=== PATIENT | female | born 1970 | race Caucasian/White ===

== ENCOUNTER 2019-11-22 07:32 | Inpatient (IN) | payer OTHER ==
[2019-11-22] MEDS ORDERED: ACETAMINOPHEN 1000 MG/100 ML VIAL (NON FORMULARY) IVPB ONE (07:42)
[2019-11-22] MEDS ORDERED: SODIUM CHLORIDE 0.9% 500 ML INFUS.BAG IV ONE (07:42)
--- OUTSIDE RECORDS SUMMARY | 2019-11-22 07:49 | XMS ---
:1970 Author Organization [facility] Support Name Relationship Address Phone UE Unavailable Unavailable Unavailable SHAAN MASON FRIEND [address] [phone] [place] [address] Re-disclosure Warning The records that you are about to access may contain information from federally- assisted alcohol or drug abuse programs. If such information is present, then the following federally mandated warning applies: This information has been disclosed to you from records protected by federal confidentiality rules (42 CFR part 2). The federal rules prohibit you from making any further disclosure of this information unless further disclosure is expressly permitted by the written consent of the person to whom it pertains or as otherwise permitted by 42 CFR part 2. A general authorization for the release of medical or other information is NOT sufficient for this purpose. The Federal rules restrict any use of the information to criminally investigate or prosecute any alcohol or drug abuse patient.The records that you are about to access may contain highly sensitive health information, the redisclosure of which is protected by Article 27-F of the [facility] Public Health law. If you continue you may haveaccess to information: Regarding HIV / AIDS; Provided by facilities licensed or operated by the [facility] Office of Mental Health; or Provided by the [facility] Office for People With Developmental Disabilities. If such information is present, then the following [facility] mandated warning applies: This information has been disclosed to you from confidential records which are protected by state law. State law prohibits you from making any further disclosure of this information without the specific written consent of the person to whom it pertains, or as otherwise permitted by law. Any unauthorized further disclosure in violation of state law may result in a fine or senior care sentence or both. A general authorization for the release of medical or other information is NOT sufficient authorization for further disclosure. Insurance Providers Payer name Policy type Policy ID Covered Covered republican's Policy P chrystal / Coverage republican ID relationship to Rojas Inf ormation type rojas AFFINITY [id number] SP [id number] Results ID Date Data Source [id number] 08/29/2019 12:00:00 AM EDT [place] Name Value Range Interpretation Description Data Sup porting Code Source(s) Document(s ) SARS [place] coronavirus 2 RNA A This lab was ordered by [facility], [facility] and reported by [employer] Procedure
--- NOTE | 2019-11-22 07:50 | PDOC ---
Attending Attestation - Resident Resident Name: RamosDima - ED Attending Attestation I have performed the following: I have examined & evaluated the patient, The case was reviewed & discussed with the resident, I agree w/resident's findings & plan, Exceptions are as noted - HPI HPI: 49 yo F history depression presents with 4 day history of abd pain. She states that she has been unable to have a bowel movement for 4 days, strained while she attempted today, subsequently noted that she passed blood from her rectum, which "filled the bowl". Denies N/V, f/c, back pain, recent illness. No prior similar symptoms. Has recently been treated for UTI with bactrim. - Physicial Exam PE: GENERAL: Awake, alert, and fully oriented, in no acute distress HEAD: No signs of trauma EYES: PERRLA, EOMI, sclera anicteric, conjunctiva clear ENT: Auricles normal inspection, hearing grossly normal, nares patent, oropharynx clear without exudates. Moist mucosa NECK: Normal ROM, supple, no lymphadenopathy, JVD, or masses LUNGS: Breath sounds equal, clear to auscultation bilaterally. No wheezes, and no crackles HEART: Regular rate and rhythm, normal S1 and S2, no murmurs, rubs or gallops ABDOMEN: Soft, nontender, hypoactive bowel sounds. No guarding, no rebound. No masses EXTREMITIES: Normal range of motion, no edema. No clubbing or cyanosis. No cords, erythema, or tenderness NEUROLOGICAL: Cranial nerves II through XII grossly intact. Normal speech, normal gait. Motor and sensation intact SKIN: Warm, dry, normal turgor, no rashes or lesions noted. - Medical Decision Making Pt with constipation associated with rectal bleeding this AM. Will obtain labs, check rectal exam. No signs of acute abdomen on exam. CT a/p obtained, found to have portal vein thrombosis, will plan for admission. Discharge - Discharge Information Problems reviewed: Yes Clinical Impression/Diagnosis: Portal vein thrombosis - Follow up/Referral - Patient Discharge Instructions - Post Discharge Activity
[2019-11-22] MEDS ORDERED: ACETAMINOPHEN INJECTION 100 ML IVPB ONE ×2 (07:55→21:03)
[2019-11-22] MEDS ORDERED: FAMOTIDINE 20 MG/50 ML IVPB 20 MG/50 ML MG IVPB ONE ×3 (07:57→15:29)
[2019-11-22] MEDS ORDERED: LIDOCAINE VISCOUS 2% ORAL/TOP 20 ML UNIT-DOSE CUP MM ONE ×2 (07:57→16:11)
[2019-11-22] MEDS ORDERED: MAG HYDROX/AL HYDROX/SIMETH -MYLANTA- ORAL SUSPENSION PO ONE ×2 (07:57→15:29)
--- NOTE | 2019-11-22 07:57 | PDOC ---
History of Present Illness - General Stated Complaint: GI BLEEDING Time Seen by Provider: 11/22/19 07:41 - History of Present Illness Initial Comments: Sahci King is a 49 y/o female with PMH significant for depression (on welbutrin) presenting today with abdominal pain for the past four days. Reports that the pain is epigastric and left flank without any radiation. Intermittent pain, unable to identify what brings it on or makes it worse. Describes the pain as burning in sensation. No fever/chills. No nausea/vomiting. Reports constipation with blood stool this morning. No dysuria. Treated for a UTI last week with bactrim x3 days. Currently finishing her menstrual cycle. PMH: SurgHx: liposuction SocHx: social ETOH use twice weekly, denies smoking/drugs Past History - Medical History Allergies/Adverse Reactions: Allergies Allergy/AdvReac Type Severity Reaction Status Date / Time ibuprofen Allergy Verified 11/22/19 07:57 Home Medications: Ambulatory Orders Bupropion HCl [Wellbutrin Sr] 150 mg PO DAILY 11/22/19 Clonazepam [Klonopin] 2 mg PO DAILY 11/22/19 - Psycho-Social/Smoking History Smoking Status: No Smoking History: Never smoked Number of Cigarettes Smoked Daily: 0 Review of Systems - Review of Systems Comments:: GENERAL/CONSTITUTIONAL: No fever or chills. No weakness._ HEAD, EYES, EARS, NOSE AND THROAT: No change in vision. No change in hearing. No sore throat._ CARDIOVASCULAR: No chest pain or shortness of breath_ RESPIRATORY: Denies cough, hemoptysis_ GASTROINTESTINAL: No nausea, vomiting, diarrhea. +abdominal pain. +constipation. GENITOURINARY: No dysuria, frequency, or change in urination._ MUSCULOSKELETAL: No joint or muscle swelling or pain. No neck or back pain._ SKIN: No rash_ NEUROLOGIC: No headache, vertigo, loss of consciousness, or change in strength/sensation._ ENDOCRINE: No increased thirst. No abnormal weight change_ HEMATOLOGIC/LYMPHATIC: No anemia, easy bleeding, or history of blood clots._ ALLERGIC/IMMUNOLOGIC: No hives or skin allergy._ *Physical Exam - Physical Exam GENERAL: Awake, alert, and oriented to person/place/time, in no acute distress_ HEAD: No signs of trauma, normocephalic, atraumatic _ EYES: PERRLA, EOMI, sclera anicteric, conjunctiva clear_ ENT: Hearing grossly normal, nares patent, oropharynx clear without exudates. No uvular deviation. Moist mucosa_ NECK: Normal ROM, supple, no lymphadenopathy, JVD, or masses_ LUNGS: No distress, speaks in full sentences, clear to auscultation bilaterally _ HEART: Regular rate and rhythm, normal S1 and S2, no murmurs appreciated, peripheral pulses normal and equal bilaterally._ ABDOMEN: Soft, minimal epigastric TTP. No guarding, no rebound. No masses. BACK: Mild right sided flank pain. RECTAL: Normal external exam. No active bleeding. Empty rectal vault. Normal rectal tone. EXTREMITIES: Normal inspection, Normal range of motion, no edema. No clubbing or cyanosis_ NEUROLOGICAL: Cranial nerves II through XII grossly intact. Normal speech, normal gait, no focal sensorimotor deficits _ SKIN: Warm, Dry, normal turgor, no rashes or lesions noted_ ED Treatment Course - LABORATORY CBC & Chemistry Diagram: 11/23/19 05:39 11/23/19 05:39 - RADIOLOGY Radiology Studies Ordered: Category Date Time Status CHEST X-RAY PORTABLE* [RAD] Stat Radiology 11/22/19 07:42 Ordered Medical Decision Making - Medical Decision Making 11/22/19 08:04 49F hx of depression presenting with mild epigastric abdominal pain for the past 4 days. Abd minimally tender, no signs of acute or peritoneal abdomen. No signs of systemic infection. DDx includes UTI vs pyelo vs pancreatitis vs gastritis. -cbc, cmp -ekg, trop, cxr -stool occult blood -ua, ucx -coags -type and screen 11/22/19 08:12 EKG shows 76 bpm, NSR, no axis deviation, LA 168, QRS 78, QTc 432, no ST elevation/depression. No prior for comparison. 11/22/19 09:01 CXR negative for acute intrathoracic pathology. 11/22/19 09:51 Labs reviewed. Laboratory Last Values WBC 8.7 K/mm3 (4.0-10.0) 11/22/19 07:48 RBC 4.19 M/mm3 (3.60-5.2) 11/22/19 07:48 Hgb 8.0 GM/dL (10.7-15.3) L 11/22/19 07:48 Hct 26.3 % (32.4-45.2) L 11/22/19 07:48 MCV 62.6 fl (80-96) L 11/22/19 07:48 MCH 19.1 pg (25.7-33.7) L 11/22/19 07:48 MCHC 30.5 g/dl (32.0-36.0) L 11/22/19 07:48 RDW 23.0 % (11.6-15.6) H 11/22/19 07:48 Plt Count 327 K/MM3 (134-434) 11/22/19 07:48 MPV 8.8 fl (7.5-11.1) 11/22/19 07:48 Absolute Neuts (auto) 5.8 K/mm3 (1.5-8.0) 11/22/19 07:48 Neutrophils % 67.0 % (42.8-82.8) 11/22/19 07:48 Lymphocytes % 22.9 % (8-40) 11/22/19 07:48 Monocytes % 8.5 % (3.8-10.2) 11/22/19 07:48 Eosinophils % 0.7 % (0-4.5) 11/22/19 07:48 Basophils % 0.9 % (0-2.0) 11/22/19 07:48 Nucleated RBC % 0 % (0-0) 11/22/19 07:48 Sodium 137 mmol/L (136-145) 11/22/19 07:48 Potassium 3.7 mmol/L (3.5-5.1) 11/22/19 07:48 Chloride 105 mmol/L (98-107) 11/22/19 07:48 Carbon Dioxide 25 mmol/L (21-32) 11/22/19 07:48 Anion Gap 7 MMOL/L (8-16) L 11/22/19 07:48 BUN 6.2 mg/dL (7-18) L 11/22/19 07:48 Creatinine 0.8 mg/dL (0.55-1.3) 11/22/19 07:48 Est GFR (CKD-EPI)AfAm 101.04 11/22/19 07:48 Est GFR (CKD-EPI)NonAf 87.18 11/22/19 07:48 Random Glucose 94 mg/dL (74-106) 11/22/19 07:48 Calcium 7.9 mg/dL (8.5-10.1) L 11/22/19 07:48 Total Bilirubin 0.4 mg/dL (0.2-1) 11/22/19 07:48 AST 19 U/L (15-37) 11/22/19 07:48 ALT 33 U/L (13-61) 11/22/19 07:48 Alkaline Phosphatase 69 U/L (45-117) 11/22/19 07:48 Creatine Kinase 43 U/L (26-192) 11/22/19 07:48 Troponin I < 0.02 ng/ml (0.00-0.05) 11/22/19 07:48 Total Protein 7.2 g/dl (6.4-8.2) 11/22/19 07:48 Albumin 3.0 g/dl (3.4-5.0) L 11/22/19 07:48 Lipase 73 U/L (73-393) 11/22/19 07:48 Serum , Qual Negative 11/22/19 07:48 Stool Occult Blood Negative (NEGATIVE) 11/22/19 08:15 11/22/19 14:43 CT abd shows extensive portal vein thrombosis involving the main portal vein and right and left branches. Large uterine fibroid. No evidence of diverticulitis or acute pathology. 11/22/19 15:12 D/w Dr. Frey, GI. Recommends heme consult as the pt may have a hypercoagulable state and no cirrhosis. 11/22/19 15:36 UA reviewed. Urine Test Results Urine Color Yellow 11/22/19 15:23 Urine Appearance Clear 11/22/19 15:23 Urine pH 7.5 (5.0-8.0) D 11/22/19 15:23 Ur Specific [place] 1.030 (1.010-1.035) 11/22/19 15:23 Urine Protein Negative (NEGATIVE) 11/22/19 15:23 Urine Glucose (UA) Negative (NEGATIVE) 11/22/19 15:23 Urine Ketones Negative (NEGATIVE) 11/22/19 15:23 Urine Blood 1+ (NEGATIVE) H 11/22/19 15:23 Urine Nitrite Negative (NEGATIVE) 11/22/19 15:23 Urine Bilirubin Negative (NEGATIVE) 11/22/19 15:23 Ur Leukocyte Esterase Negative (NEGATIVE) 11/22/19 15:23 11/22/19 17:27 Case d/w Dr. Stinson. Requests factor V leiden, protein C, protein S, antithrombin III, thrombin [id number], prothrombin, VCR-abl, JAK2. R/o myeloproliferative neoplasms. Will evaluate the patient. 11/22/19 17:38 Case d/w Dr. Argueta who accepts the patient for admission. Discharge - Discharge Information Problems reviewed: Yes Clinical Impression/Diagnosis: Portal vein thrombosis Condition: Stable - Admission Yes - Follow up/Referral - Patient Discharge Instructions - Post Discharge Activity
[2019-11-22 08:05] LABS: BASO % 0.9 % (0-2.0); EOS % 0.7 % (0-4.5); HEMATOCRIT 26.3 % (32.4-45.2); LYMPH % 22.9 % (8-40); MCHC 30.5 g/dl (32.0-36.0); MEAN CELL VOLUME 62.6 fl (80-96); MEAN PLT VOLUME 8.8 fl (7.5-11.1); MONO % 8.5 % (3.8-10.2); PLATELET COUNT 327 K/MM3 (134-434); RBC 4.19 M/mm3 (3.60-5.2); WHITE BLOOD COUNT 8.7 K/mm3 (4.0-10.0)
[2019-11-22] MEDS ORDERED: MAG HYDROX/AL HYDROX/SIMETH 30 ML UNIT-DOSE CUP ONE ×2 (08:16→16:12)
[2019-11-22] MEDS ORDERED: LIDOCAINE VISCOUS 2% ORAL/TOP 20 ML UNIT-DOSE CUP ONE (08:16)
[2019-11-22 08:22] LABS: MCH 19.1 pg (25.7-33.7)
[2019-11-22 08:36] LABS: ALK PHOS 69 U/L (45-117); ANION GAP 7 MMOL/L (8-16); BILIRUBIN,TOTAL 0.4 mg/dL (0.2-1); BLOOD UREA NITROGEN 6.2 mg/dL (7-18); CALCIUM 7.9 mg/dL (8.5-10.1); CHLORIDE 105 mmol/L (98-107); CO2 25 mmol/L (21-32); CREATININE 0.8 mg/dL (0.55-1.3); GLUCOSE,RANDOM 94 mg/dL (74-106); LIPASE 73 U/L (73-393); POTASSIUM 3.7 mmol/L (3.5-5.1); SGOT/AST 19 U/L (15-37); SGPT/ALT 33 U/L (13-61); SODIUM 137 mmol/L (136-145); TOT PROT 7.2 g/dl (6.4-8.2)
--- NOTE | 2019-11-22 08:53 | EKG ---
Test Reason : Blood Pressure : / mmHG Vent. Rate : 076 BPM Atrial Rate : 076 BPM P-R Int : 168 ms QRS Dur : 078 ms QT Int : 384 ms P-R-T Axes : 019 010 027 degrees QTc Int : 432 ms NORMAL SINUS RHYTHM LOW VOLTAGE QRS BORDERLINE ECG NO PREVIOUS ECGS AVAILABLE Confirmed by Kellen Jung ([id number]) on 11/22/2019 8:52:41 AM Referred By: Confirmed By:Kellen Jung
[2019-11-22 11:19] LABS: ANISOCYTOSIS 2+; MACROCYTOSIS 0; PLATELET ESTIMATE NORMAL
[2019-11-22 15:30] LABS: EPI CELLS 11 /uL (0-25.1); HYALINE CASTS 0 /uL (0-3.1); PH,URINE 7.5 (5.0-8.0); URINE APPEARANCE CLEAR; URINE BACTERIA 112 /uL (0-1359); URINE BILIRUBIN NEGATIVE (NEGATIVE); URINE COLOR YELLOW; URINE GLUCOSE (UA) NEGATIVE (NEGATIVE); URINE KETONE NEGATIVE (NEGATIVE); URINE LEUK ESTERASE NEGATIVE (NEGATIVE); URINE NITRITE NEGATIVE (NEGATIVE); URINE PROTEIN NEGATIVE (NEGATIVE); URINE RBC 9 /uL (0-23.9); URINE UROBILINOGEN 0.2 mg/dL (0.2-1.0); URINE WBC 20 /uL (0-25.8)
--- OUTSIDE RECORDS SUMMARY | 2019-11-22 17:57 | XMS ---
:1970 Author Organization [facility] Support Name Relationship Address Phone UE, UNEMPLOYED Unavailable Unavailable Unavailable UE Unavailable Unavailable Unavailable SHAAN MASON FRIEND [address] [place] [address] Re-disclosure Warning The records that you are [...] by Article 27-F of the [facility] law. If you continue you may haveaccess to information: Regarding HIV / AIDS; Provided by facilities licensed or operated by the [facility] Office of Mental Health; or Provided by the [facility] Office for People With Developmental Disabilities. If such information is present, then the following [facility] mandated warning applies: This information has been [...] law may result in a fine or prison sentence or both. A general authorization for the release of medical or other information is NOT sufficient authorization for further disclosure. Insurance Providers Payer name Policy type Policy ID Covered Covered democrat's Policy P chrystal / Coverage democrat ID relationship to Rojas Inf ormation type rojas AFFINITY [id number] SP [id number] 100 Results ID Date Data Source [id number] 08/29/2019 12:00:00 AM EDT [place] Name Value Range Interpretation Description Data Sup porting Code Source(s) Document(s ) SARS [facility] coronavirus 2 RNA A This lab was ordered by [facility] and reported by [employer] Procedure
[2019-11-22] MEDS ORDERED: MORPHINE SULFATE 2 MG/ML VIAL IVPUSH ONE (18:13)
--- NOTE | 2019-11-22 18:14 | HP ---
CHIEF COMPLAINT: ABD Pain PCP: Dr. Toscano HISTORY OF PRESENT ILLNESS: 49yo F with h/o Depression presenting today with abdominal pain for 4 days described as constant 6/10 pain diffusely. Patient reports the pain occurred suddenly when it was initiated and accompanied with L flank pain. Patient states she believed her pain was from gas and constipation so she took stool softeners and increased her free water intake with no effect. She came today because of the continued pain causing her to lose sleep for further investigation. Patient reports some nause, however no vomiting has occurred. In ED on imaging patient found to have portal vein thrombus, large uterine fibroid, and per my read distended bladder. Hematology was consulted in ED. Pt reports no prior clotting or bleeding events. Denies fever/chills, vomiting, lightheadedness/dizziness, cough, hemoptysis, SOB, CP/palpitations, dysuria, polyuria, hematuria. Pt reports generalized fatigue Pt also endorses that today she had one BM with hard stool with notable blood in the toilet after her BM. This has only occurred once and she has never had any prior events to this day. Pt's LMP today (finishing). PMH: As above SurgHx: Liposuction SocHx: social ETOH use twice weekly, denies smoking/drugs Family: No bleeding or clotting disorders, cardiac disease (both parents; estranged from mother) and dementia Allergies ibuprofen Allergy (Verified 11/22/19 07:57) HOME MEDICATIONS: Home Medications Medication Instructions Recorded Bupropion HCl [Wellbutrin Sr] 150 mg PO DAILY 11/22/19 Clonazepam [Klonopin] 2 mg PO DAILY 11/22/19 REVIEW OF SYSTEMS As above PHYSICAL EXAMINATION Vital Signs - 24 hr 11/22/19 11/22/19 11/22/19 07:35 15:26 17:03 Temperature 98.3 F 98.1 F 99.1 F Pulse Rate 81 Pulse Rate [ 76 Left] Pulse Rate [ 79 Right Apical] Respiratory 16 15 14 Rate Blood Pressure 108/72 Blood Pressure 111/77 [Arm] Blood Pressure 112/48 L [Left Arm] O2 Sat by Pulse 98 100 100 Oximetry (%) GENERAL: Awake, alert, and fully oriented, in no acute distress. HEENT: NC/aT, EOMI, MARICRUZ, slightly pale conjunctiva, MMM LUNGS: CTA bilaterally. No wheezes, and no crackles. No accessory muscle use. HEART: RRR, normal S1 and S2 without murmur ABDOMEN: Soft, nondistended, NT, hypoactive bowel sounds, no guarding, no rebound. No hepatomegaly EXTREMITIES: 2+ pulses, warm, well-perfused. No calf tenderness. No peripheral edema. PSYCHIATRIC: Cooperative. Good eye contact. Appropriate mood and affect. SKIN: Warm, dry, no rashes or lesions noted, normal capillary refill. Tattoo on back Laboratory Results - last 24 hr 11/22/19 11/22/19 11/22/19 07:48 07:48 07:48 WBC 8.7 RBC 4.19 Hgb 8.0 L Hct 26.3 L MCV 62.6 L MCH 19.1 L MCHC 30.5 L RDW 23.0 H Plt Count 327 MPV 8.8 Absolute Neuts (auto) 5.8 Neutrophils % 67.0 Lymphocytes % 22.9 Monocytes % 8.5 Eosinophils % 0.7 Basophils % 0.9 Nucleated RBC % 0 Hypochromia 1+ Platelet Estimate Normal Polychromasia 0 Poikilocytosis 1+ Anisocytosis 2+ Microcytosis 2+ Macrocytosis 0 Sodium 137 Potassium 3.7 Chloride 105 Carbon Dioxide 25 Anion Gap 7 L BUN 6.2 L Creatinine 0.8 Est GFR (CKD-EPI)AfAm 101.04 Est GFR (CKD-EPI)NonAf 87.18 Random Glucose 94 Calcium 7.9 L Total Bilirubin 0.4 AST 19 ALT 33 Alkaline Phosphatase 69 Creatine Kinase 43 Troponin I < 0.02 Total Protein 7.2 Albumin 3.0 L Lipase 73 Serum , Qual Negative Urine Color Urine Appearance Urine pH Ur Specific [place] Urine Protein Urine Glucose (UA) Urine Ketones Urine Blood Urine Nitrite Urine Bilirubin Urine Urobilinogen Ur Leukocyte Esterase Urine WBC (Auto) Urine RBC (Auto) Urine Casts (Auto) U Epithel Cells (Auto) Urine Bacteria (Auto) Stool Occult Blood Blood Type Antibody Screen Crossmatch 11/22/19 11/22/19 11/22/19 07:48 08:15 08:15 WBC RBC Hgb Hct MCV MCH MCHC RDW Plt Count MPV Absolute Neuts (auto) Neutrophils % Lymphocytes % Monocytes % Eosinophils % Basophils % Nucleated RBC % Hypochromia Platelet Estimate Polychromasia Poikilocytosis Anisocytosis Microcytosis Macrocytosis Sodium Potassium Chloride Carbon Dioxide Anion Gap BUN Creatinine Est GFR (CKD-EPI)AfAm Est GFR (CKD-EPI)NonAf Random Glucose Calcium Total Bilirubin AST ALT Alkaline Phosphatase Creatine Kinase Troponin I Total Protein Albumin Lipase Serum , Qual Urine Color Urine Appearance Urine pH Ur Specific [place] Urine Protein Urine Glucose (UA) Urine Ketones Urine Blood Urine Nitrite Urine Bilirubin Urine Urobilinogen Ur Leukocyte Esterase Urine WBC (Auto) Urine RBC (Auto) Urine Casts (Auto) U Epithel Cells (Auto) Urine Bacteria (Auto) Stool Occult Blood Negative Blood Type A POSITIVE A POSITIVE Antibody Screen Negative Crossmatch See Detail 11/22/19 15:23 WBC RBC Hgb Hct MCV MCH MCHC RDW Plt Count MPV Absolute Neuts (auto) Neutrophils % Lymphocytes % Monocytes % Eosinophils % Basophils % Nucleated RBC % Hypochromia Platelet Estimate Polychromasia Poikilocytosis Anisocytosis Microcytosis Macrocytosis Sodium Potassium Chloride Carbon Dioxide Anion Gap BUN Creatinine Est GFR (CKD-EPI)AfAm Est GFR (CKD-EPI)NonAf Random Glucose Calcium Total Bilirubin AST ALT Alkaline Phosphatase Creatine Kinase Troponin I Total Protein Albumin Lipase Serum , Qual Urine Color Yellow Urine Appearance Clear Urine pH 7.5 D Ur Specific [place] 1.030 Urine Protein Negative Urine Glucose (UA) Negative Urine Ketones Negative Urine Blood 1+ H Urine Nitrite Negative Urine Bilirubin Negative Urine Urobilinogen 0.2 Ur Leukocyte Esterase Negative Urine WBC (Auto) 20 Urine RBC (Auto) 9 Urine Casts (Auto) 0 U Epithel Cells (Auto) 11 Urine Bacteria (Auto) 112 Stool Occult Blood Blood Type Antibody Screen Crossmatch ASSESSMENT/PLAN: Portal Vein Thrombosis Microcytic Anemia Simple Kidney Cyst Uterine Fibroids Bladder distention --Considering extensive portal vein thrombosis with unclear etiology will anticoagulate with Lovenox SQ 1 mg/kg BID --Episodes of bleeding after BM likely related to hard stool and fissuring --Hematology on board; appreciate recs on Coumadin v NOAC v Lovenox SQ for thrombus --Ordered hypercoaguable workup (some require outpatient authorization for ordering) --Tylenol for pain mitigation --Microcytic anemia likely reflective of iron deficiency anemia --Iron studies to be performed --Will likely need supplementation after determination of iron deficit --Given distended bladder on CT scan; bladder scan now --If elevated may need to straight cath vs. TOV --Restart home medications and continue regular diet Dispo: M/S Alex Argueat DO - IM Family Medical History Family History: As Documented Visit type - Emergency Visit Emergency Visit: Yes ED Registration Date: 11/22/19 Care time: The patient presented to the Emergency Department on the above date and was hospitalized for further evaluation of their emergent condition. - New Patient This patient is new to me today: Yes Date on this admission: 11/22/19 - Critical Care Critical Care patient: No
[2019-11-22] MEDS ORDERED: CALCIUM GLUCONATE 10% - 1,000 MG/10 ML VIAL IVPUSH ONE (18:18)
[2019-11-22] MEDS ORDERED: CALCIUM GLUCONATE 10% - 1,000 MG/10 ML VIAL ONE (18:52)
[2019-11-22] MEDS ORDERED: MORPHINE SULFATE 2 MG/ML VIAL ONE (18:52)
[2019-11-22] MEDS: ACETAMINOPHEN 1000 MG/100 ML VIAL (NON FORMULARY) IVPB PRN (21:08)
[2019-11-22] MEDS ORDERED: ENOXAPARIN NA (PORCINE) 80 MG/0.8 ML DISP.SYRIN SQ ONE (23:28)
[2019-11-22] MEDS: ENOXAPARIN NA (PORCINE) 80 MG/0.8 ML DISP.SYRIN SQ SCH (23:32)
[2019-11-23] MEDS ORDERED: ACETAMINOPHEN INJECTION 100 ML IVPB ONE (00:50)
[2019-11-23 03:15] LABS: IRON SERUM 16 ug/dL (50-175); TOTAL IRON BINDING CAPACITY 355 ug/dL (250-450)
[2019-11-23] MEDS ORDERED: POLYETHYLENE GLYCOL 3350 119 GM BTL PO ONE (05:24)
[2019-11-23 06:27] LABS: HEMATOCRIT 27.4 % (32.4-45.2); HEMOGLOBIN 8.1 GM/dL (10.7-15.3); MCHC 29.6 g/dl (32.0-36.0); MEAN CELL VOLUME 63.3 fl (80-96); MEAN PLT VOLUME 8.5 fl (7.5-11.1); PLATELET COUNT 415 K/MM3 (134-434); RBC 4.33 M/mm3 (3.60-5.2); RDW 22.6 % (11.6-15.6); WHITE BLOOD COUNT 8.6 K/mm3 (4.0-10.0)
[2019-11-23 06:40] LABS: BLOOD UREA NITROGEN 7.4 mg/dL (7-18); CALCIUM 8.4 mg/dL (8.5-10.1); CREATININE 0.7 mg/dL (0.55-1.3); POTASSIUM 3.9 mmol/L (3.5-5.1)
[2019-11-23] MEDS ORDERED: clonazePAM 0.5 MG TABLET ONE (06:44)
[2019-11-23] MEDS: clonazePAM 2 MG TABLET PO SCH ×2 (06:50→10:08)
[2019-11-23 07:59] LABS: MCH 18.7 pg (25.7-33.7)
[2019-11-23] MEDS ORDERED: ENOXAPARIN NA (PORCINE) 80 MG/0.8 ML DISP.SYRIN SQ ONE (09:20)
[2019-11-23] MEDS ORDERED: buPROPion HCL 100 MG TABLET ONE (09:20)
[2019-11-23] MEDS: ENOXAPARIN NA (PORCINE) 80 MG/0.8 ML DISP.SYRIN SQ SCH ×2 (09:32→21:55)
[2019-11-23 09:36] LABS: INR 1.13 (0.83-1.09); PROTHROMBIN TIME (PATIENT) 13.4 SEC (9.7-13.0)
[2019-11-23 09:39] LABS: ACTIVATED PTT 36.8 SECONDS (25.2-36.5)
[2019-11-23] MEDS ORDERED: SODIUM PHOSPHATE/NA BIPHOS 133 ML ENEMA RC ONE (09:55)
[2019-11-23] MEDS: ACETAMINOPHEN 1000 MG/100 ML VIAL (NON FORMULARY) IVPB PRN (10:55)
--- NOTE | 2019-11-23 12:55 | PN ---
Physical Exam: SUBJECTIVE: Patient seen and examined. Complaining of abdominal pain diffusely due to no BM x 5 d. Admits to weakness/fatigue. Denies fever, chills, SOB, CP. OBJECTIVE: Vital Signs Period Temp Pulse Resp BP Sys/Zamudio Pulse Ox Last 24 Hr 97.7 F-99.1 F 76-84 14-18 92-112/48-77 98-100 GENERAL: The patient is awake, alert, and fully oriented, in no acute distress. HEAD: Normal with no signs of trauma. EYES: PERRL, extraocular movements intact, sclera anicteric, conjunctiva clear. No ptosis. ENT: Ears normal, nares patent, oropharynx clear without exudates, moist mucous membranes. NECK: Trachea midline, full range of motion, supple. LUNGS: Breath sounds equal, clear to auscultation bilaterally, no wheezes, no crackles, no accessory muscle use. HEART: Regular rate and rhythm, S1, S2 without murmur, rub or gallop. ABDOMEN: Soft, distended. normoactive bowel sounds, no guarding, no rebound, no hepatosplenomegaly, no masses. Abdominal tenderness diffusely. EXTREMITIES: 2+ pulses, warm, well-perfused, no edema. NEUROLOGICAL: Cranial nerves II through XII grossly intact. Normal speech, gait not observed. PSYCH: Normal mood, normal affect. SKIN: Warm, dry, normal turgor, no rashes or lesions noted Laboratory Results - last 24 hr 11/22/19 11/22/19 11/23/19 07:48 15:23 05:39 WBC 8.6 RBC 4.33 Hgb 8.1 L Hct 27.4 L MCV 63.3 L MCH 18.7 L MCHC 29.6 L RDW 22.6 H Plt Count 415 D MPV 8.5 PT with INR INR PTT (Actin FS) Sodium 137 Potassium 3.7 Chloride 105 Carbon Dioxide 25 Anion Gap 7 L BUN 6.2 L Creatinine 0.8 Est GFR (CKD-EPI)AfAm 101.04 Est GFR (CKD-EPI)NonAf 87.18 Random Glucose 94 Calcium 7.9 L Iron 16 L TIBC 355 Iron Saturation 4 L Unsaturated IBC 339 H Ferritin 10.3 Total Bilirubin 0.4 AST 19 ALT 33 Alkaline Phosphatase 69 Creatine Kinase 43 Troponin I < 0.02 Total Protein 7.2 Albumin 3.0 L Lipase 73 Urine Color Yellow Urine Appearance Clear Urine pH 7.5 D Ur Specific [place] 1.030 Urine Protein Negative Urine Glucose (UA) Negative Urine Ketones Negative Urine Blood 1+ H Urine Nitrite Negative Urine Bilirubin Negative Urine Urobilinogen 0.2 Ur Leukocyte Esterase Negative Urine WBC (Auto) 20 Urine RBC (Auto) 9 Urine Casts (Auto) 0 U Epithel Cells (Auto) 11 Urine Bacteria (Auto) 112 11/23/19 11/23/19 05:39 09:08 WBC RBC Hgb Hct MCV MCH MCHC RDW Plt Count MPV PT with INR 13.40 H INR 1.13 H PTT (Actin FS) 36.8 H Sodium 140 Potassium 3.9 Chloride 106 Carbon Dioxide 26 Anion Gap 8 BUN 7.4 Creatinine 0.7 Est GFR (CKD-EPI)AfAm 118.74 Est GFR (CKD-EPI)NonAf 102.45 Random Glucose 84 Calcium 8.4 L Iron TIBC Iron Saturation Unsaturated IBC Ferritin Total Bilirubin AST ALT Alkaline Phosphatase Creatine Kinase Troponin I Total Protein Albumin Lipase Urine Color Urine Appearance Urine pH Ur Specific [place] Urine Protein Urine Glucose (UA) Urine Ketones Urine Blood Urine Nitrite Urine Bilirubin Urine Urobilinogen Ur Leukocyte Esterase Urine WBC (Auto) Urine RBC (Auto) Urine Casts (Auto) U Epithel Cells (Auto) Urine Bacteria (Auto) Active Medications Generic Name Dose Route Start Last Admin Trade Name Freq PRN Reason Stop Dose Admin Acetaminophen 1,000 mg 11/22/19 18:13 11/23/19 10:55 Ofirmev Injection - IVPB 11/23/19 18:13 1,000 mg Q6H PRN Administration PAIN LEVEL 4 - 6 Bupropion HCl 150 mg 11/23/19 10:00 11/23/19 09:32 Wellbutrin Xl - PO 150 mg DAILY GEENA Administration Clonazepam 2 mg 11/23/19 10:00 11/23/19 10:08 Klonopin - PO Not Given DAILY GEENA Enoxaparin Sodium 80 mg 11/22/19 22:00 11/23/19 09:32 Lovenox - SQ 80 mg BID GEENA Administration ASSESSMENT/PLAN: Pt is a 49 year old female with PMHx of depression presenting with abdominal pain diffusely, admitted for findings of portal vein thrombosis on abdomen/pelvis CT. Uterine fibroids also seen, negative for diverticulitis, appendicitis. #Portal vein thrombosis -Seen in main portal vein and left/right portal vein branches on abdomen/pelvis CT -Started on Lovenox 80mg BID, therapeutic dose -Hypercoaguability tests ordered - Factor V leiden, Factor II prothrombin gene, antithrombin III, -Hematology consulted -GI consulted -PRN Tylenol IV #Constipation -5 days; given miralax with no benefit -given saline enema #Iron deficiency anemia -H/H 8.1/27.4; finishing LMP -Trend H/H for improvement -No transfusion at this time; type and screen completed -Has fibroids, just completed period #Uterine fibroids -seen on pelvic/abdomen CT #Hx of depression -continue home clonazepam and wellbutrin PPx Lovenox 80mg BID for PVT FEN -No standing fluids -Monitor electrolytes -Regular diet Dispo Admit to med surg. PVT seen on abdomen/pelvis CT, on Lovenox therapeutic dose. Heme and GI consulted. Microcytic anemia, finishing LMP - follow H/H. Visit type - Emergency Visit Emergency Visit: Yes ED Registration Date: 11/22/19 Care time: The patient presented to the Emergency Department on the above date and was hospitalized for further evaluation of their emergent condition. - New Patient This patient is new to me today: No - Critical Care Critical Care patient: No ATTENDING PHYSICIAN STATEMENT I saw and evaluated the patient. I reviewed the resident's note and discussed the case with the resident. I agree with the resident's findings and plan as documented. SUBJECTIVE: OBJECTIVE: ASSESSMENT AND PLAN:
--- NOTE | 2019-11-23 13:53 | PN ---
Teaching Attending Note Name of Resident: Damon Colin ATTENDING PHYSICIAN STATEMENT I saw and evaluated the patient. I reviewed the resident's note and discussed the case with the resident. I agree with the resident's findings and plan as documented. SUBJECTIVE: pt seen and examined at bedside OBJECTIVE: Last Vital Signs Temp Pulse Resp BP Pulse Ox 98.6 F 86 18 107/56 L 99 11/23/19 13:18 11/23/19 13:18 11/23/19 13:18 11/23/19 13:18 11/23/19 13:18 GENERAL: Awake, alert, and fully oriented, in no acute distress. HEAD: Normal with no signs of trauma. EYES: Pupils equal, round and reactive to light, sclera anicteric, conjunctiva clear. LUNGS: Breath sounds equal, clear to auscultation bilaterally. No wheezes, and no crackles. No accessory muscle use. HEART: Regular rate and rhythm, normal S1 and S2 ABDOMEN: Soft, nontender, not distended, PHILOMENA: small hemorrhoid, no fissures normal sphincter toner, vault containing brownish stool, no impaction, no melena MUSCULOSKELETAL: Normal range of motion at all joints. No bony deformities or tenderness. No CVA tenderness. UPPER EXTREMITIES: 2+ pulses, warm, well-perfused. No cyanosis. No clubbing. No peripheral edema. LOWER EXTREMITIES: 2+ pulses, warm, well-perfused. No calf tenderness. No peripheral edema. NEUROLOGICAL: Cranial nerves II-XII intact. Normal speech. CBCD WBC 8.6 K/mm3 (4.0-10.0) 11/23/19 05:39 RBC 4.33 M/mm3 (3.60-5.2) 11/23/19 05:39 Hgb 8.1 GM/dL (10.7-15.3) L 11/23/19 05:39 Hct 27.4 % (32.4-45.2) L 11/23/19 05:39 MCV 63.3 fl (80-96) L 11/23/19 05:39 MCHC 29.6 g/dl (32.0-36.0) L 11/23/19 05:39 RDW 22.6 % (11.6-15.6) H 11/23/19 05:39 Plt Count 415 K/MM3 (134-434) D 11/23/19 05:39 MPV 8.5 fl (7.5-11.1) 11/23/19 05:39 CMP Sodium 140 mmol/L (136-145) 11/23/19 05:39 Potassium 3.9 mmol/L (3.5-5.1) 11/23/19 05:39 Chloride 106 mmol/L (98-107) 11/23/19 05:39 Carbon Dioxide 26 mmol/L (21-32) 11/23/19 05:39 Anion Gap 8 MMOL/L (8-16) 11/23/19 05:39 BUN 7.4 mg/dL (7-18) 11/23/19 05:39 Creatinine 0.7 mg/dL (0.55-1.3) 11/23/19 05:39 Random Glucose 84 mg/dL (74-106) 11/23/19 05:39 Calcium 8.4 mg/dL (8.5-10.1) L 11/23/19 05:39 Total Bilirubin 0.4 mg/dL (0.2-1) 11/22/19 07:48 AST 19 U/L (15-37) 11/22/19 07:48 ALT 33 U/L (13-61) 11/22/19 07:48 Alkaline Phosphatase 69 U/L (45-117) 11/22/19 07:48 Total Protein 7.2 g/dl (6.4-8.2) 11/22/19 07:48 Albumin 3.0 g/dl (3.4-5.0) L 11/22/19 07:48 CARDIAC ENZYMES Creatine Kinase 43 U/L (26-192) 11/22/19 07:48 Troponin I < 0.02 ng/ml (0.00-0.05) 11/22/19 07:48 Active Medications Acetaminophen (Ofirmev Injection -) 1,000 mg IVPB Q6H PRN PRN Reason: PAIN LEVEL 4 - 6 Stop: 11/23/19 18:13 Last Admin: 11/23/19 10:55 Dose: 1,000 mg Documented by: Bupropion HCl (Wellbutrin Xl -) 150 mg PO DAILY [facility] Last Admin: 11/23/19 09:32 Dose: 150 mg Documented by: Clonazepam (Klonopin -) 2 mg PO DAILY [facility] Last Admin: 11/23/19 10:08 Dose: Not Given Documented by: Enoxaparin Sodium (Lovenox -) 80 mg SQ BID [facility] Last Admin: 11/23/19 09:32 Dose: 80 mg Documented by: ASSESSMENT AND PLAN: 49 year old lady with MHx of depression presenting with diffuse abdominal pain and constipation of 5 days duration, worsening gradually. admitted for findings of portal vein thrombosis on abdomen/pelvis CT. #Acute PVT causes unknown at this time occasional EtOH use, father had gastric tumour in his 20s (resected), mother had CVA in her 70s, no family hx of hypercoagulable condition pt reported active, no OCP use, denies smoking, IVDU CT reported PVT seen in main portal vein and left/right portal vein branches (no masses, no cirrhosis) started on enoxaparin 1mg/kg bid Hypercoaguability tests ordered (some test are available as outpatient) HemOnc consulted GI consulted # Iron Def Anemia Hg 8.1 Ferritin 10, TIBC 355 trend H&H, keep Hg>7 no melena, FOBT negative just finished her period, has fibroids, reported regular menses Constipation (miralax, docusate) Depression DVT prophylaxis: pt on therapeutic LMWH
[2019-11-23 15:33] VITALS: BMI 29.1
--- NOTE | 2019-11-23 16:22 | PN ---
Progress Note (short form) - Note Progress Note: GI CONSULT DICTATED -- HEME EVALUATION /ANTICOAGULATION -- BOWEL REGIMEM
--- NOTE | 2019-11-23 16:45 | CON.HO ---
Consult Consult Specialty:: Hematology Reason for Consultation:: Portal Vein Thrombosis - History of Present Illness History of Present Illness: 49 y/o lady with h/o depression presenting today with abdominal pain for 4 days described as constant 6/10 pain diffusely. She had severe constipation for 5-6 days. Mentioned believes her abdominal pain is due to her last of bowel move ments. CT Abdomen obtain by ER team and Portal Vein Thrombosis was diagnosed. I provided advice over the phone (see at the end of this note) and evaluated her today in person in [facility]. - History Source History Provided By: Patient, Medical Record Limitations to Obtaining History: No Limitations - Past Medical History ...LMP: 11/22/19 ...: No - Alcohol/Substance Use Hx Alcohol Use: No - Smoking History Smoking history: Never smoked Have you smoked in the past 12 months: No Aproximately how many cigarettes per day: 0 Home Medications - Allergies Allergies/Adverse Reactions: Allergies Allergy/AdvReac Type Severity Reaction Status Date / Time cefazolin [From Ancef] Allergy Verified 11/23/19 15:05 nitroflaxin Allergy Uncoded 11/23/19 15:05 - Home Medications Home Medications: Ambulatory Orders Bupropion HCl [Wellbutrin Sr] 150 mg PO DAILY 11/22/19 Clonazepam [Klonopin] 2 mg PO DAILY 11/22/19 Family Medical History Family Hx Cancer: Father (Stomach cancer-resected) Family Hx Nuerologic Problems: Mother (Stroke) Review of Systems - Review of Systems Constitutional: reports: No Symptoms Eyes: reports: No Symptoms HENT: reports: No Symptoms Neck: reports: No Symptoms Cardiovascular: reports: No Symptoms Respiratory: reports: No Symptoms Gastrointestinal: reports: Abdominal Pain, Constipation Genitourinary: reports: No Symptoms Breasts: reports: No Symptoms Reported Musculoskeletal: reports: No Symptoms Integumentary: reports: No Symptoms Neurological: reports: No Symptoms Endocrine: reports: No Symptoms Hematology/Lymphatic: reports: No Symptoms Psychiatric: reports: No Symptoms Physical Exam Vital Signs: Vital Signs Temperature 98.4 F 11/23/19 14:56 Pulse Rate 82 11/23/19 14:56 Respiratory Rate 11/23/19 14:56 Blood Pressure 111/69 11/23/19 14:56 O2 Sat by Pulse Oximetry (%) 100 11/23/19 15:37 Constitutional: Yes: Well Nourished, No Distress, Calm Eyes: Yes: WNL, Conjunctiva Clear, EOM Intact HENT: Yes: WNL, Atraumatic, Normocephalic Neck: Yes: WNL, Supple, Trachea Midline Cardiovascular: Yes: WNL, Regular Rate and Rhythm Respiratory: Yes: WNL, Regular, CTA Bilaterally Gastrointestinal: Yes: Other (Mild tenderness in RUQ/Epigastrium. Fullness but not discrete mass) Renal/: Yes: WNL Musculoskeletal: Yes: WNL Extremities: Yes: WNL Labs: CBC, BMP 11/23/19 05:39 11/23/19 05:39 Assessment/Plan 49 y/o lady without significant medical history, her prior surgeries were all cosmetic (breast, liposuction) who presents with abdominal pain that she attributed to severe constipation. CT Abdomen revealed new portal vein thrombosis. Hematology consulted. Recommend: 1) Portal Vein Thrombosis: Start Anticoagulation with full dose lovenox 2) Hypercoagulable syndrome testing. Please order: Protein C, Protein S, Antithrombin III, Factor V Leiden, Prothrombin 93958 gene mutation. Anti-phosph olipid syndrome testing: antiPL, anticardiolipin and beta2-glycoprotein I antibodies). Also JAK2 (V617F) and BCR-ABL PCR tests. I discussed these orders with ER physician who entered some- Please order reminder of tests 3) Consider MR abdomen evaluation for detailed evaluation and small tumors 4) Age appropriate cancer screenings (pt indicated doing her mammograms), Colonoscopy, PAP Smears. 5) Rare case reports indicate association between uterine fibroids and portal vein thrombosis (and other DVTs) but no strong association or recommendations available. 6) Will follow 7) Thank you very much for this interesting consultation
[2019-11-23] MEDS ORDERED: MAGNESIUM HYDROX 2400MG/30ML ORAL SUSPENSION 30 ML CUP PO ONE (17:05)
[2019-11-23] MEDS: MORPHINE SULFATE 2 MG/ML VIAL IVPUSH PRN ×2 (17:47→21:56)
[2019-11-23] MEDS ORDERED: ACETAMINOPHEN 325 MG TABLET (FP) PO PRN (18:45)
[2019-11-23] MEDS: SENNOSIDES 8.6MG TABLET (FP) PO PRN (21:54)
[2019-11-23] MEDS: DOCUSATE SODIUM 100 MG CAPSULE (FP) PO SCH (21:54)
[2019-11-23] MEDS: POLYETHYLENE GLYCOL 3350 119 GM BTL PO SCH (21:55)
[2019-11-24] MEDS: MORPHINE SULFATE 2 MG/ML VIAL IVPUSH PRN ×2 (02:08→06:47)
[2019-11-24 06:34] LABS: HEMOGLOBIN 7.5 GM/dL (10.7-15.3); MCHC 30.2 g/dl (32.0-36.0); MEAN CELL VOLUME 62.2 fl (80-96); MEAN PLT VOLUME 8.5 fl (7.5-11.1); PLATELET COUNT 421 K/MM3 (134-434); RBC 4.02 M/mm3 (3.60-5.2); RDW 22.5 % (11.6-15.6); WHITE BLOOD COUNT 8.5 K/mm3 (4.0-10.0)
[2019-11-24 06:51] LABS: MCH 18.8 pg (25.7-33.7)
--- NOTE | 2019-11-24 08:13 | CONS ---
DATE OF CONSULTATION: DATE OF DICTATION: 11/23/2019 HISTORY: Patient is a 49-year-old female with a past medical history of depression who reports a 5-day history of constipation as well as right-sided and diffuse abdominal pain. She also reports nausea. These symptoms prompted her to come to the emergency room for further evaluation. She had a CT scan of the abdomen and pelvis which revealed a portal vein thrombus. She denies any melena, nausea, vomiting or hematemesis. She has never had prior history of clots in the vasculature. There is no history of any liver disease and she only socially drinks alcohol. She admits to chronic constipation and states that she has not had a bowel movement in 5 days and the stool was streaked with red blood. She has never had an endoscopic evaluation in the past. PAST MEDICAL & SURGICAL HISTORY: As listed in the HPI with the addition of liposuction. SOCIAL HISTORY: Drinks alcohol socially. Does not smoke or use drugs. FAMILY HISTORY: No GI or gynecological malignancy and there is no history of clotting disorders or bleeding disorders. ALLERGIES: To IBUPROFEN. HOME MEDICATIONS: Include Klonopin and Wellbutrin. REVIEW OF SYSTEMS: As per the HPI. PHYSICAL EXAMINATION: Vital Signs: Temperature 99, pulse 76, blood pressure 108/72, pulse oximetry 100% on room air. General: No acute distress. HEENT: Anicteric sclerae. Cardiovascular: S1, S2. Regular rate and rhythm. Lungs: Bilaterally clear to auscultation. Abdomen: Tender in the right upper quadrant without rebound or guarding. Extremities: No edema. LABORATORIES: White blood cell count 8.6, hemoglobin 8.1 and hematocrit 27, MCV 63, platelet count 415, INR 1.1. Sodium 140, potassium 3.9, BUN 7.4 and creatinine 0.7. Stool for occult blood is negative. COVID testing is pending. CT scan of the abdomen and pelvis revealed extensive portal vein thrombus in the main portal vein as well as the right and left portal branches, large uterine fibroid. No evidence of diverticulitis. IMPRESSION: 1. Portal vein thrombosis. 2. Constipation with associated episode of bright red blood per rectum. No sign of an overt Gi bleed. This episode is likely consistent with hemorrhoids as the etiology. PLAN & RECOMMENDATION: Obtain Hematology consultation for work up of her hypercoagulable state, pain management. Will start her on a bowel regimen. She states MiraLAX did not work for her. I will add on Senokot 2 tabs p.o. nightly as well as Colace. She was also given an enema earlier. If needed she can be started on suppository in addition to the present regimen. Will hold off on any endoscopic evaluation at this time considering she does need hypercoagulable workup and likely anticoagulation ( future work - up with egd / colonoscopy can be done outpt once the acute process improves). Will defer to primary medical team. Please reconsult the GI service as needed. DO MARINA CLEMENT/[id number] MTDD
[2019-11-24 08:58] LABS: BLOOD UREA NITROGEN 6.3 mg/dL (7-18); POTASSIUM 3.6 mmol/L (3.5-5.1)
[2019-11-24 09:07] LABS: ALBUMIN 2.7 g/dl (3.4-5.0); BILIRUBIN,TOTAL 0.6 mg/dL (0.2-1); CALCIUM 7.8 mg/dL (8.5-10.1); CREATININE 0.5 mg/dL (0.55-1.3); MAGNESIUM 2.5 mg/dL (1.8-2.4); TOT PROT 6.5 g/dl (6.4-8.2)
[2019-11-24] MEDS: traMADol HCL 50 MG TABLET PO PRN ×2 (10:46→16:33)
[2019-11-24] MEDS: clonazePAM 2 MG TABLET PO SCH (10:47)
[2019-11-24] MEDS: ENOXAPARIN NA (PORCINE) 80 MG/0.8 ML DISP.SYRIN SQ SCH ×2 (10:47→21:35)
[2019-11-24] MEDS: DOCUSATE SODIUM 100 MG CAPSULE (FP) PO SCH ×3 (10:47→21:42)
[2019-11-24] MEDS: POLYETHYLENE GLYCOL 3350 119 GM BTL PO SCH ×3 (10:48→21:41)
[2019-11-24] MEDS ORDERED: IRON SUCROSE INJECTION 200 MG in SODIUM CHLORIDE 90 ML IVPB ONE (11:00)
[2019-11-24] MEDS: ACETAMINOPHEN 1000 MG/100 ML VIAL (NON FORMULARY) IVPB PRN ×2 (12:18→18:46)
[2019-11-24] MEDS: LACTULOSE 20 GM/30 ML UDC (FOR ORAL USE ONLY) PO SCH ×3 (14:45→21:42)
--- NOTE | 2019-11-24 16:27 | PN ---
Teaching Attending Note Name of Resident: Damon Colin ATTENDING PHYSICIAN STATEMENT I saw and evaluated the patient. I reviewed the resident's note and discussed the case with the resident. I agree with the resident's findings and plan as documented. SUBJECTIVE: pt seen and examined OBJECTIVE: Last Vital Signs Temp Pulse Resp BP Pulse Ox 98.4 F 82 18 114/71 100 11/24/19 10:00 11/24/19 10:00 11/24/19 10:00 11/24/19 10:00 11/24/19 10:00 GENERAL: Awake, alert, and fully oriented, in no acute distress. HEAD: Normal with no signs of trauma. EYES: Pupils equal, round and reactive to light, sclera anicteric, conjunctiva clear. LUNGS: Breath sounds equal, clear to auscultation bilaterally. No wheezes, and no crackles. No accessory muscle use. HEART: Regular rate and rhythm, normal S1 and S2 ABDOMEN: Soft, nontender, not distended, PHILOMENA: small hemorrhoid, no fissures normal sphincter toner, vault containing brownish stool, no impaction, no melena MUSCULOSKELETAL: Normal range of motion at all joints. No bony deformities or tenderness. No CVA tenderness. UPPER EXTREMITIES: 2+ pulses, warm, well-perfused. No cyanosis. No clubbing. No peripheral edema. LOWER EXTREMITIES: 2+ pulses, warm, well-perfused. No calf tenderness. No peripheral edema. NEUROLOGICAL: Cranial nerves II-XII intact. Normal speech. CBCD WBC 8.5 K/mm3 (4.0-10.0) 11/24/19 06:07 RBC 4.02 M/mm3 (3.60-5.2) 11/24/19 06:07 Hgb 7.5 GM/dL (10.7-15.3) L 11/24/19 06:07 Hct 25.0 % (32.4-45.2) L 11/24/19 06:07 MCV 62.2 fl (80-96) L 11/24/19 06:07 MCHC 30.2 g/dl (32.0-36.0) L 11/24/19 06:07 RDW 22.5 % (11.6-15.6) H 11/24/19 06:07 Plt Count 421 K/MM3 (134-434) 11/24/19 06:07 MPV 8.5 fl (7.5-11.1) 11/24/19 06:07 CMP Sodium 136 mmol/L (136-145) 11/24/19 06:07 Potassium 3.6 mmol/L (3.5-5.1) 11/24/19 06:07 Chloride 103 mmol/L (98-107) 11/24/19 06:07 Carbon Dioxide 25 mmol/L (21-32) 11/24/19 06:07 Anion Gap 8 MMOL/L (8-16) 11/24/19 06:07 BUN 6.3 mg/dL (7-18) L 11/24/19 06:07 Creatinine 0.5 mg/dL (0.55-1.3) L 11/24/19 06:07 Calcium 7.8 mg/dL (8.5-10.1) L 11/24/19 06:07 Total Bilirubin 0.6 mg/dL (0.2-1) 11/24/19 06:07 AST 9 U/L (15-37) L 11/24/19 06:07 ALT 22 U/L (13-61) 11/24/19 06:07 Alkaline Phosphatase 71 U/L (45-117) 11/24/19 06:07 Total Protein 6.5 g/dl (6.4-8.2) 11/24/19 06:07 Albumin 2.7 g/dl (3.4-5.0) L 11/24/19 06:07 Active Medications Acetaminophen (Ofirmev Injection -) 1,000 mg IVPB Q6H PRN PRN Reason: PAIN LEVEL 1-5 Stop: 11/25/19 09:08 Last Admin: 11/24/19 12:18 Dose: 1,000 mg Documented by: Bupropion HCl (Wellbutrin Xl -) 150 mg PO DAILY [facility] Last Admin: 11/24/19 10:47 Dose: 150 mg Documented by: Clonazepam (Klonopin -) 2 mg PO DAILY [facility] Last Admin: 11/24/19 10:47 Dose: 2 mg Documented by: Docusate Sodium (Colace -) 100 mg PO BID [facility] Last Admin: 11/24/19 10:47 Dose: 100 mg Documented by: Enoxaparin Sodium (Lovenox -) 80 mg SQ BID [facility] Last Admin: 11/24/19 10:47 Dose: 80 mg Documented by: Iron Sucrose 200 mg/ Sodium (Chloride) 100 mls @ 100 mls/hr IVPB ONCE ONE Stop: 11/25/19 11:17 Lactulose (Cephulac (Oral Use)) 20 gm PO TID [facility] Last Admin: 11/24/19 14:45 Dose: 20 gm Documented by: Polyethylene Glycol (Miralax (For Daily Use) -) 17 gm PO BID [facility] Last Admin: 11/24/19 10:48 Dose: 17 gm Documented by: Senna (Senna -) 2 tab PO HS PRN PRN Reason: CONSTIPATION Last Admin: 11/23/19 21:54 Dose: 2 tab Documented by: Tramadol HCl (Ultram -) 50 mg PO Q6H PRN PRN Reason: PAIN LEVEL 6-10 Last Admin: 11/24/19 10:46 Dose: 50 mg Documented by: ASSESSMENT AND PLAN: 49 year old lady with MHx of depression and fibroid (with menorrhagia) presenting with diffuse abdominal pain and constipation of 5 days duration, worsening gradually. admitted for findings of portal vein thrombosis on abdomen/pelvis CT. #Acute PVT causes unknown at this time occasional EtOH use, father had gastric tumour in his 20s (resected), mother had CVA in her 70s, no family hx of hypercoagulable condition pt reported active, no OCP use, denies smoking, IVDU CT reported PVT seen in main portal vein and left/right portal vein branches (no masses, no cirrhosis) started on enoxaparin 1mg/kg bid Hypercoaguability tests ordered (some test are available as outpatient) HemOnc consult appreciated GI consult appreciated # Iron Def Anemia Hg 7.5, no over bleeding likely due to fibroid will check reticulocytes Ferritin 10, TIBC 355 trend H&H, keep Hg>7 no melena, FOBT negative # Constipation did not respind yet to miralax, docusat, senna, lactulose. (enema given yesterday) KUB showed fecal material in descending colon, no bowel obstruction intestinal ischemia?sluggish flow? 2/2 PVT repeat enema in AM if still no response Surgical consult requested Depression fibroid DVT prophylaxis: pt on therapeutic LMWH
--- NOTE | 2019-11-24 16:42 | CONSULT ---
- Consultation REQUESTING PROVIDER: Cody Ball MD CONSULT REQUEST: We have been asked to surgically evaluate this patient for constipation. 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 She states she has started to pass flatus; she has been given laxatives. PMHx: depression PSHx: liposuction Home Medications Medication Instructions Recorded Bupropion HCl [Wellbutrin Sr] 150 mg PO DAILY 11/22/19 Clonazepam [Klonopin] 2 mg PO DAILY 11/22/19 Fluconazole 150 mg PO DAILY 11/24/19 Sulfamethoxazole/Trimethoprim 1 tab PO BID 11/24/19 [Bactrim Ds -] Allergies Allergy/AdvReac Type Severity Reaction Status Date / Time cefazolin [From Anc] Allergy Verified 11/23/19 15:05 nitroflaxin Allergy Uncoded 11/23/19 15:05 REVIEW OF SYSTEMS: CONSTITUTIONAL: Absent: fever, chills, diaphoresis, generalized weakness, malaise, loss of appetite, weight change CARDIOVASCULAR: Absent: chest pain, syncope, palpitations, irregular heart rate, lightheadedness, peripheral edema RESPIRATORY: Absent: cough, shortness of breath, dyspnea with exertion, wheezing, stridor, hemoptysis GASTROINTESTINAL: Present: abdominal pain, abdominal distension, Absent:nausea, vomiting, diarrhea, Present:constipation, Absent:melena, hematochezia GENITOURINARY: Absent: dysuria, frequency, urgency, hesitancy, hematuria, flank pain, genital pain MUSCULOSKELETAL: Absent: myalgia, arthralgia, joint swelling, back pain, neck pain SKIN: Absent: rash, itching, pallor HEMATOLOGIC/IMMUNOLOGIC: Absent: easy bleeding, easy bruising, lymphadenopathy NEUROLOGIC: Absent: headache, focal weakness, paresthesias, dizziness, unsteady gait, seizure, mental status changes, bladder or bowel incontinence PSYCHIATRIC: Absent: anxiety, Present: depression, Absent: suicidal or homicidal ideation, hallucinations. PHYSICAL EXAM: GENERAL: Awake, alert, and fully oriented, in no acute distress. HEAD: Normal with no signs of trauma. EYES:, sclera anicteric, conjunctiva clear. NECK: Normal ROM, supple without lymphadenopathy, JVD, or masses. ABDOMEN: Soft, nontender, not distended, normoactive bowel sounds, no guarding, no rebound, large pelvic mass to top of umbilicusobstipation. No organomegaly. No scars; no hernias. MUSCULOSKELETAL: Normal ROM at all joints. No bony deformities or tenderness. No CVA tenderness. UPPER EXTREMITIES: 2+ pulses, warm, well-perfused. No cyanosis. Cap refill <2 seconds. No peripheral edema. LOWER EXTREMITIES: 2+ pulses, warm, well-perfused. No calf tenderness. No peripheral edema. NEUROLOGICAL: Normal speech, gait not observed. PSYCH: Cooperative. Good eye contact. Appropriate mood and affect. SKIN: Warm, dry, normal turgor, no rashes or lesions noted. Vital Signs Temperature 98.4 F 11/24/19 10:00 Pulse Rate 82 11/24/19 10:00 Respiratory Rate 18 11/24/19 10:00 Blood Pressure 114/71 11/24/19 10:00 O2 Sat by Pulse Oximetry (%) 100 11/24/19 10:00 Lab Results WBC 8.5 K/mm3 (4.0-10.0) 11/24/19 06:07 RBC 4.02 M/mm3 (3.60-5.2) 11/24/19 06:07 Hgb 7.5 GM/dL (10.7-15.3) L 11/24/19 06:07 Hct 25.0 % (32.4-45.2) L 11/24/19 06:07 MCV 62.2 fl (80-96) L 11/24/19 06:07 MCHC 30.2 g/dl (32.0-36.0) L 11/24/19 06:07 RDW 22.5 % (11.6-15.6) H 11/24/19 06:07 Plt Count 421 K/MM3 (134-434) 11/24/19 06:07 INR 1.13 (0.83-1.09) H 11/23/19 09:08 Sodium 136 mmol/L (136-145) 11/24/19 06:07 Potassium 3.6 mmol/L (3.5-5.1) 11/24/19 06:07 Chloride 103 mmol/L (98-107) 11/24/19 06:07 Carbon Dioxide 25 mmol/L (21-32) 11/24/19 06:07 Anion Gap 8 MMOL/L (8-16) 11/24/19 06:07 BUN 6.3 mg/dL (7-18) L 11/24/19 06:07 Creatinine 0.5 mg/dL (0.55-1.3) L 11/24/19 06:07 Random Glucose 88 mg/dL (74-106) 11/24/19 06:07 Calcium 7.8 mg/dL (8.5-10.1) L 11/24/19 06:07 Blood Type A POSITIVE 11/22/19 08:15 Antibody Screen Negative 11/22/19 08:15 CT a/p reviewed AXR from today reviewed IMP:obstipation PLAN: Concur w/recommendations of GI; imaging [facility] it appears stool is moving towards the rectum; Hematology w/u in progress w/r/t portal vein thrombosis which I do not believe is related to her obstipation; no evidence of an acute surgical abdomen and no surgical intervention indicated at this time. Ramirez Obrien MD FACS.
--- NOTE | 2019-11-24 16:48 | PN ---
Physical Exam: SUBJECTIVE: Patient seen and examined. Abdominal tenderness. No BM. OBJECTIVE: Vital Signs Period Temp Pulse Resp BP Sys/Zamudio Pulse Ox Last 24 Hr 97.7 F-98.8 F 82-91 18-20 102-118/65-71 98-100 GENERAL: The patient is awake, alert, and fully oriented, in no acute distress. HEAD: Normal with no signs of trauma. EYES: PERRL, extraocular movements intact, sclera anicteric, conjunctiva clear. No ptosis. ENT: Ears normal, nares patent, oropharynx clear without exudates, moist mucous membranes. NECK: Trachea midline, full range of motion, supple. LUNGS: Breath sounds equal, clear to auscultation bilaterally, no wheezes, no crackles, no accessory muscle use. HEART: Regular rate and rhythm, S1, S2 without murmur, rub or gallop. ABDOMEN: Soft, distended. normoactive bowel sounds, no guarding, no rebound, no hepatosplenomegaly, no masses. Abdominal tenderness diffusely. EXTREMITIES: 2+ pulses, warm, well-perfused, no edema. NEUROLOGICAL: Cranial nerves II through XII grossly intact. Normal speech, gait not observed. PSYCH: Normal mood, normal affect. SKIN: Warm, dry, normal turgor, no rashes or lesions noted Laboratory Results - last 24 hr 11/23/19 11/24/19 11/24/19 17:55 06:07 06:07 WBC 8.5 RBC 4.02 Hgb 7.5 L Hct 25.0 L MCV 62.2 L MCH 18.8 L MCHC 30.2 L RDW 22.5 H Plt Count 421 MPV 8.5 Sodium 136 Potassium 3.6 Chloride 103 Carbon Dioxide 25 Anion Gap 8 BUN 6.3 L Creatinine 0.5 L Est GFR (CKD-EPI)AfAm 132.65 Est GFR (CKD-EPI)NonAf 114.45 Random Glucose 88 Calcium 7.8 L Phosphorus 4.0 Magnesium 2.5 H Total Bilirubin 0.6 AST 9 L ALT 22 Alkaline Phosphatase 71 Total Protein 6.5 Albumin 2.7 L SARS-CoV-2 Ab Interp Non-reactive Active Medications Generic Name Dose Route Start Last Admin Trade Name Freq PRN Reason Stop Dose Admin Acetaminophen 1,000 mg 11/24/19 09:08 11/24/19 12:18 Ofirmev Injection - IVPB 11/25/19 09:08 1,000 mg Q6H PRN Administration PAIN LEVEL 1-5 Bupropion HCl 150 mg 11/23/19 10:00 11/24/19 10:47 Wellbutrin Xl - PO 150 mg DAILY GEENA Administration Clonazepam 2 mg 11/23/19 10:00 11/24/19 10:47 Klonopin - PO 2 mg DAILY GEENA Administration Docusate Sodium 100 mg 11/23/19 22:00 11/24/19 10:47 Colace - PO 100 mg BID GEENA Administration Enoxaparin Sodium 80 mg 11/22/19 22:00 11/24/19 10:47 Lovenox - SQ 80 mg BID GEENA Administration Iron Sucrose 200 mg/ Sodium 100 mls @ 100 mls/hr 11/25/19 10:18 Chloride IVPB 11/25/19 11:17 ONCE ONE Lactulose 20 gm 11/24/19 14:00 11/24/19 14:45 Cephulac (Oral Use) PO 20 gm TID GEENA Administration Polyethylene Glycol 17 gm 11/23/19 22:00 11/24/19 10:48 Miralax (For Daily Use) - PO 17 gm BID GEENA Administration Senna 2 tab 11/23/19 16:20 11/23/19 21:54 Senna - PO 2 tab HS PRN Administration CONSTIPATION Tramadol HCl 50 mg 11/24/19 09:06 11/24/19 16:33 Ultram - PO 50 mg Q6H PRN Administration PAIN LEVEL 6-10 ASSESSMENT/PLAN: Pt is a 49 year old female with PMHx of depression presenting with abdominal pain diffusely, admitted for findings of portal vein thrombosis on abdomen/pelvis CT. Uterine fibroids also seen, negative for diverticulitis, appendicitis. #Portal vein thrombosis -Seen in main portal vein and left/right portal vein branches on abdomen/pelvis CT -Started on Lovenox 80mg BID, therapeutic dose -Hypercoaguability tests ordered - Factor V leiden, Factor II prothrombin gene, antithrombin III, protein C, protein S (remainder to be completed outpatient) -Hematology consulted -GI consulted -PRN Tylenol IV #Constipation -6 day, no response to miralax, colace, senna, lactulose, saline enema -KUB sowing fecal material in descending colon with no obstruction -enema in AM if no BM overnight -surgery consulted for possible intestinal ischemia; due to moving bowel into descending colon, will continue to evaluate #Iron deficiency anemia -H/H 7.5; repeat ordered, transfuse if <7 -Has fibroids, just completed period #Uterine fibroids -seen on pelvic/abdomen CT #Hx of depression -continue home clonazepam and wellbutrin PPx Lovenox 80mg BID for PVT FEN -No standing fluids -Monitor electrolytes -Regular diet Dispo Admit to med surg. PVT seen on abdomen/pelvis CT, on Lovenox therapeutic dose. Heme and GI consulted. Microcytic anemia, finishing LMP - follow H/H. Visit type - Emergency Visit Emergency Visit: Yes ED Registration Date: 11/22/19 Care time: The patient presented to the Emergency Department on the above date and was hospitalized for further evaluation of their emergent condition. - New Patient This patient is new to me today: No - Critical Care Critical Care patient: No ATTENDING PHYSICIAN STATEMENT I saw and evaluated the patient. I reviewed the resident's note and discussed the case with the resident. I agree with the resident's findings and plan as documented. SUBJECTIVE: OBJECTIVE: ASSESSMENT AND PLAN:
[2019-11-24 16:57] LABS: HEMATOCRIT 26.9 % (32.4-45.2); MCHC 29.6 g/dl (32.0-36.0); MEAN CELL VOLUME 64.3 fl (80-96); MEAN PLT VOLUME 8.8 fl (7.5-11.1); PLATELET COUNT 392 K/MM3 (134-434); RBC 4.19 M/mm3 (3.60-5.2); RDW 22.4 % (11.6-15.6); WHITE BLOOD COUNT 6.9 K/mm3 (4.0-10.0)
[2019-11-25] MEDS: ACETAMINOPHEN 1000 MG/100 ML VIAL (NON FORMULARY) IVPB PRN ×3 (00:42→21:09)
[2019-11-25] MEDS ORDERED: FAMOTIDINE 20 MG TABLET PO ONE (01:30)
[2019-11-25] MEDS: LACTULOSE 20 GM/30 ML UDC (FOR ORAL USE ONLY) PO SCH ×3 (05:18→21:06)
[2019-11-25 07:27] LABS: RETICULOCYTES 1.26 % (0.5-1.5)
[2019-11-25 07:28] LABS: HEMATOCRIT 25.9 % (32.4-45.2); HEMOGLOBIN 7.8 GM/dL (10.7-15.3); MCHC 30.3 g/dl (32.0-36.0); MEAN CELL VOLUME 62.7 fl (80-96); MEAN PLT VOLUME 8.9 fl (7.5-11.1); PLATELET COUNT 472 K/MM3 (134-434); RBC 4.13 M/mm3 (3.60-5.2); RDW 22.1 % (11.6-15.6); WHITE BLOOD COUNT 7.7 K/mm3 (4.0-10.0)
[2019-11-25 07:49] LABS: ALBUMIN 2.8 g/dl (3.4-5.0); BILIRUBIN,TOTAL 0.6 mg/dL (0.2-1); BLOOD UREA NITROGEN 5.6 mg/dL (7-18); CALCIUM 8.5 mg/dL (8.5-10.1); CREATININE 0.6 mg/dL (0.55-1.3); MAGNESIUM 2.8 mg/dL (1.8-2.4); PHOSPHOROUS 4.4 mg/dL (2.5-4.9); TOT PROT 6.9 g/dl (6.4-8.2)
[2019-11-25] MEDS: SIMETHICONE 80 MG TAB.CHEW (FP) PO PRN ×3 (08:57→23:28)
[2019-11-25] MEDS: clonazePAM 2 MG TABLET PO SCH (09:01)
[2019-11-25] MEDS: DOCUSATE SODIUM 100 MG CAPSULE (FP) PO SCH ×2 (09:01→21:07)
[2019-11-25] MEDS: POLYETHYLENE GLYCOL 3350 119 GM BTL PO SCH ×2 (09:01→21:07)
[2019-11-25] MEDS: ENOXAPARIN NA (PORCINE) 80 MG/0.8 ML DISP.SYRIN SQ SCH ×2 (09:02→21:08)
[2019-11-25] MEDS ORDERED: IRON SUCROSE INJECTION 200 MG in SODIUM CHLORIDE 90 ML IVPB ONE (10:18)
[2019-11-25] MEDS: traMADol HCL 50 MG TABLET PO PRN (13:19)
[2019-11-25 14:17] LABS: HEMATOCRIT 26.8 % (32.4-45.2); MEAN CELL VOLUME 63.1 fl (80-96); MEAN PLT VOLUME 9.2 fl (7.5-11.1); PLATELET COUNT 502 K/MM3 (134-434); RBC 4.24 M/mm3 (3.60-5.2); RDW 22.7 % (11.6-15.6); WHITE BLOOD COUNT 7.6 K/mm3 (4.0-10.0)
[2019-11-25 14:23] LABS: MCH 18.9 pg (25.7-33.7)
--- NOTE | 2019-11-25 16:35 | PN ---
Physical Exam: SUBJECTIVE: Patient seen and examined. Abdominal tenderness present. Tarry black stool overnight per pt. OBJECTIVE: Vital Signs Period Temp Pulse Resp BP Sys/Zamudio Pulse Ox Last 24 Hr 97.7 F-98.4 F 76-88 18-20 98-113/55-65 97-100 GENERAL: The patient is awake, alert, and fully oriented, in no acute distress. HEAD: Normal with no signs of trauma. EYES: PERRL, extraocular movements intact, sclera anicteric, conjunctiva clear. No ptosis. ENT: Ears normal, nares patent, oropharynx clear without exudates, moist mucous membranes. NECK: Trachea midline, full range of motion, supple. LUNGS: Breath sounds equal, clear to auscultation bilaterally, no wheezes, no crackles, no accessory muscle use. HEART: Regular rate and rhythm, S1, S2 without murmur, rub or gallop. ABDOMEN: Soft, distended. normoactive bowel sounds, no guarding, no rebound, no hepatosplenomegaly, no masses. Abdominal tenderness diffusely. EXTREMITIES: 2+ pulses, warm, well-perfused, no edema. NEUROLOGICAL: Cranial nerves II through XII grossly intact. Normal speech, gait not observed. PSYCH: Normal mood, normal affect. SKIN: Warm, dry, normal turgor, no rashes or lesions noted Laboratory Results - last 24 hr 11/22/19 11/22/19 11/23/19 08:15 09:08 05:39 WBC RBC Hgb Hct MCV MCH MCHC RDW Plt Count MPV Retic Count Func Antithrombin III 110 Sodium Potassium Chloride Carbon Dioxide Anion Gap BUN Creatinine Est GFR (CKD-EPI)AfAm Est GFR (CKD-EPI)NonAf Random Glucose Calcium Phosphorus Magnesium Transferrin 273 Total Bilirubin AST ALT Alkaline Phosphatase Total Protein Albumin COVID-19 (JONAH) Blood Type A POSITIVE Antibody Screen Negative Crossmatch See Detail 11/23/19 11/24/19 11/25/19 08:59 16:20 06:42 WBC 6.9 7.7 RBC 4.19 4.13 Hgb 8.0 L 7.8 L Hct 26.9 L 25.9 L MCV 64.3 L 62.7 L MCH 19.0 L 19.0 L MCHC 29.6 L 30.3 L RDW 22.4 H 22.1 H Plt Count 392 472 H D MPV 8.8 8.9 Retic Count Func Antithrombin III Sodium Potassium Chloride Carbon Dioxide Anion Gap BUN Creatinine Est GFR (CKD-EPI)AfAm Est GFR (CKD-EPI)NonAf Random Glucose Calcium Phosphorus Magnesium Transferrin Total Bilirubin AST ALT Alkaline Phosphatase Total Protein Albumin COVID-19 (JONAH) Not detected Blood Type Antibody Screen Crossmatch 11/25/19 11/25/19 06:42 06:42 WBC 7.6 RBC 4.24 Hgb 8.0 L Hct 26.8 L MCV 63.1 L MCH 18.9 L MCHC 30.0 L RDW 22.7 H Plt Count 502 H MPV 9.2 Retic Count 1.26 Func Antithrombin III Sodium 137 Potassium 4.0 Chloride 104 Carbon Dioxide 27 Anion Gap 6 L BUN 5.6 L Creatinine 0.6 Est GFR (CKD-EPI)AfAm 124.92 Est GFR (CKD-EPI)NonAf 107.78 Random Glucose 81 Calcium 8.5 Phosphorus 4.4 Magnesium 2.8 H Transferrin Total Bilirubin 0.6 AST 12 L ALT 23 Alkaline Phosphatase 81 Total Protein 6.9 Albumin 2.8 L COVID-19 (JONAH) Blood Type Antibody Screen Crossmatch Active Medications Generic Name Dose Route Start Last Admin Trade Name Freq PRN Reason Stop Dose Admin Bupropion HCl 150 mg 11/23/19 10:00 11/25/19 09:01 Wellbutrin Xl - PO 150 mg DAILY GEENA Administration Clonazepam 2 mg 11/23/19 10:00 11/25/19 09:01 Klonopin - PO 2 mg DAILY GEENA Administration Docusate Sodium 100 mg 11/23/19 22:00 11/25/19 09:01 Colace - PO 100 mg BID GEENA Administration Enoxaparin Sodium 80 mg 11/22/19 22:00 11/25/19 09:02 Lovenox - SQ 80 mg BID GEENA Administration Lactulose 20 gm 11/24/19 14:00 11/25/19 13:18 Cephulac (Oral Use) PO 20 gm TID GEENA Administration Polyethylene Glycol 17 gm 11/23/19 22:00 11/25/19 09:01 Miralax (For Daily Use) - PO 17 gm BID GEENA Administration Senna 2 tab 11/23/19 16:20 11/23/19 21:54 Senna - PO 2 tab HS PRN Administration CONSTIPATION Simethicone 80 mg 11/25/19 08:21 11/25/19 08:57 Mylicon - PO 80 mg Q4H PRN Administration GAS Tramadol HCl 50 mg 11/24/19 09:06 11/25/19 13:19 Ultram - PO 50 mg Q6H PRN Administration PAIN LEVEL 6-10 ASSESSMENT/PLAN: Pt is a 49 year old female with PMHx of depression presenting with abdominal pain diffusely, admitted for findings of portal vein thrombosis on abd omen/pelvis CT. Uterine fibroids also seen, negative for diverticulitis, appendicitis. #Portal vein thrombosis -Seen in main portal vein and left/right portal vein branches on abdomen/pelvis CT -Started on Lovenox 80mg BID, therapeutic dose -Hypercoaguability tests ordered - Factor V leiden, Factor II prothrombin gene, antithrombin III, protein C, protein S (remainder to be completed outpatient) -Hematology consulted -GI consulted -PRN Tylenol IV #Constipation -KUB sowing fecal material in descending colon with no obstruction -enema in AM if no BM overnight -surgery consulted for possible intestinal ischemia; due to moving bowel into descending colon, will continue to evaluate -BMx1; dark, tarry #Iron deficiency anemia -H/H 7.5; repeat ordered, transfuse if <7 -IV iron -dark tarry stool x1, awaiting GI recs #Uterine fibroids -seen on pelvic/abdomen CT #Hx of depression -continue home clonazepam and wellbutrin PPx Lovenox 80mg BID for PVT FEN -No standing fluids -Monitor electrolytes -Regular diet Dispo Admit to med surg. PVT seen on abdomen/pelvis CT, on Lovenox therapeutic dose. Heme and GI consulted. Microcytic anemia, finishing LMP - follow H/H. ATTENDING PHYSICIAN STATEMENT I saw and evaluated the patient. I reviewed the resident's note and discussed the case with the resident. I agree with the resident's findings and plan as documented. SUBJECTIVE: OBJECTIVE: ASSESSMENT AND PLAN:
[2019-11-25] MEDS ORDERED: MORPHINE SULFATE 2 MG/ML VIAL IVPUSH PRN (17:24)
--- NOTE | 2019-11-25 17:36 | PN.HO ---
Progress Note (short form) - Note Progress Note: S: Abdominal pain persists not controlled with current regimen. Mentioned had a bowel movement liquid/"green/black". She had another large bowel movement yesterday. O: Last Vital Signs Temp Pulse Resp BP Pulse Ox 97.9 F 76 20 98/55 L 99 11/25/19 13:41 11/25/19 13:41 11/25/19 13:41 11/25/19 13:41 11/25/19 13:41 General: NAD HEENT: MMM CVS: S1, S2 Lungs: CTAB Abdomen: Softer than on Sunday Ext: No edema Assessment and Plan: 49 y/o lady without significant medical history, her prior surgeries were all cosmetic (breast, liposuction) who presents with abdominal pain that she attributed to severe constipation. CT Abdomen revealed new portal vein thrombosis. Hematology consulted. Recommend: 1) Portal Vein Thrombosis: Started Anticoagulation with full dose lovenox 2) Hypercoagulable syndrome testing. Please order: Protein C, Protein S, Antithrombin III, Factor V Leiden, Prothrombin 15986 gene mutation. Anti- phospholipid syndrome testing: antiPL, anticardiolipin and beta2-glycoprotein I antibodies). Please order JAK2 ([id number]) and BCR-ABL PCR tests. 3) Reported black stools with significant LLOYD. Needs colonoscopy and EGD to r/o GI malignancy. 4) Pain management agents reported as ineffective. IV Tylenol and Tramadol did not control her pain. I restarted her on Morphine. Consider pain management consultation 5) LLOYD. Received IV Iron. [place] index: 14.8. She does not need a blood transfusion 6) Given continuous pain MRI ABD/MRCP should be strongly considered as a small tumor can be causing both pain and the portal vein thrombosis. 7) Will need f/u with /Dr. Harris
--- NOTE | 2019-11-25 18:09 | PN ---
Teaching Attending Note Name of Resident: Damon Cloin ATTENDING PHYSICIAN STATEMENT I saw and evaluated the patient. I reviewed the resident's note and discussed the case with the resident. I agree with the resident's findings and plan as documented. SUBJECTIVE: Feeling okay, some mild ongoing abdominal discomfort. Large black BM last night. No fever/chills/nausea/vomiting. OBJECTIVE: Afebrile, Hemodynamically stable. Last Vital Signs Temp Pulse Resp BP Pulse Ox 97.9 F 76 20 98/55 L 99 11/25/19 13:41 11/25/19 13:41 11/25/19 13:41 11/25/19 13:41 11/25/19 13:41 HEENT - Atraumatic, Normocephalic. Heart - S1, S2, RRR Lungs - clear to auscultation Abdomen - Soft, mild generalized tenderness dom LQs and Epigastrum. Extremities - trace edema, no calf tenderness. Neuro - AAO x 3. Tone/Power normal all extremities. Laboratory Results - last 24 hr 11/22/19 11/22/19 11/23/19 08:15 09:08 05:39 WBC RBC Hgb Hct MCV MCH MCHC RDW Plt Count MPV Retic Count Func Antithrombin III 110 Sodium Potassium Chloride Carbon Dioxide Anion Gap BUN Creatinine Est GFR (CKD-EPI)AfAm Est GFR (CKD-EPI)NonAf Random Glucose Calcium Phosphorus Magnesium Transferrin 273 Total Bilirubin AST ALT Alkaline Phosphatase Total Protein Albumin COVID-19 (JONAH) Blood Type A POSITIVE Antibody Screen Negative Crossmatch See Detail 11/23/19 11/25/19 11/25/19 08:59 06:42 06:42 WBC 7.7 RBC 4.13 Hgb 7.8 L Hct 25.9 L MCV 62.7 L MCH 19.0 L MCHC 30.3 L RDW 22.1 H Plt Count 472 H D MPV 8.9 Retic Count Func Antithrombin III Sodium 137 Potassium 4.0 Chloride 104 Carbon Dioxide 27 Anion Gap 6 L BUN 5.6 L Creatinine 0.6 Est GFR (CKD-EPI)AfAm 124.92 Est GFR (CKD-EPI)NonAf 107.78 Random Glucose 81 Calcium 8.5 Phosphorus 4.4 Magnesium 2.8 H Transferrin Total Bilirubin 0.6 AST 12 L ALT 23 Alkaline Phosphatase 81 Total Protein 6.9 Albumin 2.8 L COVID-19 (JONAH) Not detected Blood Type Antibody Screen Crossmatch 11/25/19 06:42 WBC 7.6 RBC 4.24 Hgb 8.0 L Hct 26.8 L MCV 63.1 L MCH 18.9 L MCHC 30.0 L RDW 22.7 H Plt Count 502 H MPV 9.2 Retic Count 1.26 Func Antithrombin III Sodium Potassium Chloride Carbon Dioxide Anion Gap BUN Creatinine Est GFR (CKD-EPI)AfAm Est GFR (CKD-EPI)NonAf Random Glucose Calcium Phosphorus Magnesium Transferrin Total Bilirubin AST ALT Alkaline Phosphatase Total Protein Albumin COVID-19 (JONAH) Blood Type Antibody Screen Crossmatch Current Medications Generic Name Dose Route Start Last Admin Trade Name Freq PRN Reason Stop Dose Admin Acetaminophen 1,000 mg 11/25/19 17:25 Ofirmev Injection - IVPB 11/26/19 17:25 Q6H PRN PAIN LEVEL 7 - 10 Bupropion HCl 150 mg 11/23/19 10:00 11/25/19 09:01 Wellbutrin Xl - PO 150 mg DAILY GEENA Administration Clonazepam 2 mg 11/23/19 10:00 11/25/19 09:01 Klonopin - PO 2 mg DAILY GEENA Administration Docusate Sodium 100 mg 11/23/19 22:00 11/25/19 09:01 Colace - PO 100 mg BID GEENA Administration Enoxaparin Sodium 80 mg 11/22/19 22:00 11/25/19 09:02 Lovenox - SQ 80 mg BID GEENA Administration Lactulose 20 gm 11/24/19 14:00 11/25/19 13:18 Cephulac (Oral Use) PO 20 gm TID GEENA Administration Morphine Sulfate 2 mg 11/25/19 17:24 11/25/19 17:31 Morphine Sulfate IVPUSH 2 mg Q4H PRN Administration PAIN LEVEL 1-5 Polyethylene Glycol 17 gm 11/23/19 22:00 11/25/19 09:01 Miralax (For Daily Use) - PO 17 gm BID GEENA Administration Senna 2 tab 11/23/19 16:20 11/23/19 21:54 Senna - PO 2 tab HS PRN Administration CONSTIPATION Simethicone 80 mg 11/25/19 08:21 11/25/19 17:32 Mylicon - PO 80 mg Q4H PRN Administration GAS Tramadol HCl 50 mg 11/24/19 09:06 11/25/19 13:19 Ultram - PO 50 mg Q6H PRN Administration PAIN LEVEL 6-10 Home Medications Medication Instructions Recorded Bupropion HCl [Wellbutrin Sr] 150 mg PO DAILY 11/22/19 Clonazepam [Klonopin] 2 mg PO DAILY 11/22/19 Fluconazole 150 mg PO DAILY 11/24/19 Sulfamethoxazole/Trimethoprim 1 tab PO BID 11/24/19 [Bactrim Ds -] ASSESSMENT AND PLAN: 49 year old female with history of Depression, Uterine Fibroid (with Me norrhagia) presents with diffuse abdominal pain and constipation for 5 days, admitted for findings of portal vein thrombosis on CT A/P. 1. Acute Portal Vein Thrombosis, etiology unclear. Started on Lovenox SQ Hypercoagulable work-up as per Hematology/Oncology H/O and GI following Tramadol for pain. 2. Iron Deficiency Anemia Ferritin 10 s/p IV Iron. Black BM overnight. FOBT re-requested. Further Ix with EGD/[place] recommended by Hematology/Oncology to exclude malignancy, deferred by GI for unclear reason. Monitor H/H 3. Constipation - bowel regimen intensified +/- Enema PRN 4. Depression - continue Bupropion, Clonazepam. DVT Px - on Lovenox SQ treatment dose
[2019-11-25 19:38] LABS: HEMATOCRIT 26.9 % (32.4-45.2); MCHC 29.6 g/dl (32.0-36.0); MEAN CELL VOLUME 62.7 fl (80-96); MEAN PLT VOLUME 8.4 fl (7.5-11.1); PLATELET COUNT 499 K/MM3 (134-434); RBC 4.29 M/mm3 (3.60-5.2); RDW 22.6 % (11.6-15.6); WHITE BLOOD COUNT 8.4 K/mm3 (4.0-10.0)
[2019-11-25 19:50] LABS: MCH 18.6 pg (25.7-33.7)
[2019-11-25] MEDS: MORPHINE SULFATE 2 MG/ML VIAL IVPUSH PRN (21:08)
[2019-11-25 23:36] LABS: HEMATOCRIT 25.4 % (32.4-45.2); HEMOGLOBIN 7.7 GM/dL (10.7-15.3); MCHC 30.4 g/dl (32.0-36.0); MEAN CELL VOLUME 62.2 fl (80-96); MEAN PLT VOLUME 8.6 fl (7.5-11.1); PLATELET COUNT 493 K/MM3 (134-434); RBC 4.09 M/mm3 (3.60-5.2); RDW 22.2 % (11.6-15.6); WHITE BLOOD COUNT 8.6 K/mm3 (4.0-10.0)
[2019-11-25 23:40] LABS: MCH 18.9 pg (25.7-33.7)
[2019-11-26] MEDS: MORPHINE SULFATE 2 MG/ML VIAL IVPUSH PRN ×5 (02:26→23:29)
[2019-11-26] MEDS: ACETAMINOPHEN 1000 MG/100 ML VIAL (NON FORMULARY) IVPB PRN ×2 (04:30→13:07)
[2019-11-26] MEDS: LACTULOSE 20 GM/30 ML UDC (FOR ORAL USE ONLY) PO SCH ×3 (06:29→21:20)
[2019-11-26 08:24] LABS: HEMATOCRIT 24.9 % (32.4-45.2); HEMOGLOBIN 7.5 GM/dL (10.7-15.3); MCHC 30.2 g/dl (32.0-36.0); MEAN CELL VOLUME 62.7 fl (80-96); MEAN PLT VOLUME 8.8 fl (7.5-11.1); PLATELET COUNT 516 K/MM3 (134-434); RBC 3.98 M/mm3 (3.60-5.2); RDW 22.4 % (11.6-15.6); WHITE BLOOD COUNT 8.4 K/mm3 (4.0-10.0)
[2019-11-26 08:26] LABS: MCH 18.9 pg (25.7-33.7)
[2019-11-26 08:56] LABS: BLOOD UREA NITROGEN 6.4 mg/dL (7-18); MAGNESIUM 2.8 mg/dL (1.8-2.4); POTASSIUM 4.1 mmol/L (3.5-5.1)
[2019-11-26 09:00] LABS: CREATININE 0.6 mg/dL (0.55-1.3); PHOSPHOROUS 4.3 mg/dL (2.5-4.9)
[2019-11-26 09:07] LABS: CALCIUM 8.1 mg/dL (8.5-10.1)
[2019-11-26] MEDS: ENOXAPARIN NA (PORCINE) 80 MG/0.8 ML DISP.SYRIN SQ SCH (10:05)
[2019-11-26] MEDS: POLYETHYLENE GLYCOL 3350 119 GM BTL PO SCH ×2 (10:05→21:20)
[2019-11-26] MEDS: DOCUSATE SODIUM 100 MG CAPSULE (FP) PO SCH ×2 (10:05→21:20)
[2019-11-26] MEDS: clonazePAM 2 MG TABLET PO SCH (10:05)
[2019-11-26] MEDS: SIMETHICONE 80 MG TAB.CHEW (FP) PO PRN ×3 (10:11→20:25)
--- NOTE | 2019-11-26 12:14 | PN.GI ---
GI Progress Note Subjective: RE- CONSULT FOR REPORTED DARK STOOL PATIENT DENIES ANY HEMETEMESIS / NAUSEA/ VOMITING/ HEMATOCHEZIA/ SHE IS ON A/C FOR PORTAL VEIN THROMBOSIS - Objective Vital Signs: Vital Signs Temperature 97.8 F 11/26/19 06:00 Pulse Rate 81 11/26/19 06:00 Respiratory Rate 18 11/26/19 06:00 Blood Pressure 109/66 11/26/19 06:00 O2 Sat by Pulse Oximetry (%) 100 11/26/19 06:00 Constitutional: Well Nourished, No Distress, Calm Eyes: Yes: WNL HENT: Yes: WNL Neck: Yes: WNL Cardiovascular: Yes: WNL, Regular Rate and Rhythm Respiratory: Yes: WNL, Regular, CTA Bilaterally Gastrointestinal Inspection: Yes: WNL ...Auscultate: Yes: Normoactive Bowel Sounds Extremities: Yes: WNL Edema: No Labs: CBC, BMP 11/26/19 07:18 11/26/19 06:00 INR, PTT INR 1.13 (0.83-1.09) H 11/23/19 09:08 Problem List - Problems (1) Anemia Assessment/Plan: H/H NOTED ; STOOL FOR OCCULT BLOOD WAS NEGATIVE ON 11/22/19 HOWEVER, NOW WITH REP ORTED DARK STOOL AND WORSENING ANEMIA WHILE ON ANTICOAGULATION. CONSIDERING SHE WILL NEED TO BE ON ANTICOAGULATION AN OUTPT FOR THROMBOEMBOLIC DZ WILL PLAN FOR DIAGNOSTIC EGD/ COLONOSCOPY TOMORROW . SHE WILL NEED MEDICAL CLEARANCE PRIOR TO PROCEDURE CLEAR LIQUID DIET PREP ORDERED SHE IS ON LOVENOX THIS WILL NEED TO BE HELD TONIGHT . Code(s): D64.9 - ANEMIA, UNSPECIFIED (2) Portal vein thrombosis Code(s): I81 - PORTAL VEIN THROMBOSIS
[2019-11-26] MEDS ORDERED: IRON SUCROSE INJECTION 200 MG in SODIUM CHLORIDE 90 ML IVPB ONE (12:45)
--- NOTE | 2019-11-26 14:54 | PN ---
Teaching Attending Note Name of Resident: Damon Colin ATTENDING PHYSICIAN STATEMENT I saw and evaluated the patient. I reviewed the resident's note and discussed the case with the resident. I agree with the resident's findings and plan as documented. SUBJECTIVE: Feeling okay, some mild ongoing abdominal discomfort. Large black BM 2 nights ago. No fever/chills/nausea/vomiting/lightheadedness. OBJECTIVE: Afebrile, Hemodynamically stable. Last Vital Signs Temp Pulse Resp BP Pulse Ox 98.3 F 84 20 97/67 99 11/26/19 13:41 11/26/19 13:41 11/26/19 13:41 11/26/19 13:41 11/26/19 13:41 Heart - S1, S2, RRR Lungs - clear to auscultation Abdomen - Soft, mild generalized tenderness dom Epigastrum. Extremities - trace edema, no calf tenderness. Neuro - AAO x 3. Tone/Power normal all extremities. Laboratory Results - last 24 hr 11/22/19 11/23/19 11/25/19 08:15 05:39 15:00 WBC 8.4 RBC 4.29 Hgb 8.0 L Hct 26.9 L MCV 62.7 L MCH 18.6 L MCHC 29.6 L RDW 22.6 H Plt Count 499 H MPV 8.4 Func Antithrombin III 110 Sodium Potassium Chloride Carbon Dioxide Anion Gap BUN Creatinine Est GFR (CKD-EPI)AfAm Est GFR (CKD-EPI)NonAf Random Glucose Calcium Phosphorus Magnesium Crossmatch See Detail 11/25/19 11/26/19 11/26/19 23:20 06:00 07:18 WBC 8.6 8.4 RBC 4.09 3.98 Hgb 7.7 L 7.5 L Hct 25.4 L 24.9 L MCV 62.2 L 62.7 L MCH 18.9 L 18.9 L MCHC 30.4 L 30.2 L RDW 22.2 H 22.4 H Plt Count 493 H 516 H MPV 8.6 8.8 Func Antithrombin III Sodium 137 Potassium 4.1 Chloride 102 Carbon Dioxide 26 Anion Gap 9 BUN 6.4 L Creatinine 0.6 Est GFR (CKD-EPI)AfAm 124.92 Est GFR (CKD-EPI)NonAf 107.78 Random Glucose 86 Calcium 8.1 L Phosphorus 4.3 Magnesium 2.8 H Crossmatch Current Medications Generic Name Dose Route Start Last Admin Trade Name Freq PRN Reason Stop Dose Admin Acetaminophen 1,000 mg 11/25/19 17:25 11/26/19 13:07 Ofirmev Injection - IVPB 11/26/19 17:25 1,000 mg Q6H PRN Administration PAIN LEVEL 7 - 10 Bisacodyl 10 mg 11/26/19 16:00 Dulcolax - PO 11/26/19 16:01 ONCE ONE Bupropion HCl 150 mg 11/23/19 10:00 11/26/19 10:05 Wellbutrin Xl - PO 150 mg DAILY GEENA Administration Clonazepam 2 mg 11/23/19 10:00 11/26/19 10:05 Klonopin - PO 2 mg DAILY GEENA Administration Docusate Sodium 100 mg 11/23/19 22:00 11/26/19 10:05 Colace - PO Not Given BID GEENA Lactulose 20 gm 11/24/19 14:00 11/26/19 13:57 Cephulac (Oral Use) PO 20 gm TID GEENA Administration Morphine Sulfate 1 mg 11/25/19 18:59 11/26/19 14:18 Morphine Sulfate IVPUSH 1 mg Q4H PRN Administration PAIN LEVEL 7 - 10 Polyethylene Glycol 17 gm 11/23/19 22:00 11/26/19 10:05 Miralax (For Daily Use) - PO 17 gm BID GEENA Administration Polyethylene Glycol/Electrolytes 4,000 ml 11/26/19 18:00 Golytely Solution - PO 11/26/19 18:01 ONCE ONE Senna 2 tab 11/23/19 16:20 11/23/19 21:54 Senna - PO 2 tab HS PRN Administration CONSTIPATION Simethicone 80 mg 11/25/19 22:58 11/26/19 13:57 Mylicon - PO 80 mg Q4H PRN Administration DYSPEPSIA Tramadol HCl 50 mg 11/24/19 09:06 11/25/19 13:19 Ultram - PO 50 mg Q6H PRN Administration PAIN LEVEL 6-10 Home Medications Medication Instructions Recorded Bupropion HCl [Wellbutrin Sr] 150 mg PO DAILY 11/22/19 Clonazepam [Klonopin] 2 mg PO DAILY 11/22/19 Fluconazole 150 mg PO DAILY 11/24/19 Sulfamethoxazole/Trimethoprim 1 tab PO BID 11/24/19 [Bactrim Ds -] ASSESSMENT AND PLAN: 49 year old female with history of Depression, Uterine Fibroid (with Menorrhagia) presents with diffuse abdominal pain and constipation for 5 days, admitted for findings of portal vein thrombosis on CT A/P. 1. Acute Portal Vein Thrombosis, etiology unclear. Started on Lovenox SQ Hypercoagulable work-up as per Hematology/Oncology H/O following - rec MRCP which shows IV morphine analgesia as per Oncology. 2. Iron Deficiency Anemia Ferritin 10 s/p IV Iron, will give another dose today. Black BM 2 nights ago FOBT negative, re-requested. Further Ix with EGD/[place] planned by GI 11/27/19 to exclude malignancy and identify possible source of blood loss. Monitor H/H Medically optimized for proposed procedure. 3. Constipation - bowel regimen intensified +/- Enema PRN 4. Depression - continue Bupropion, Clonazepam. DVT Px - on Lovenox SQ treatment dose - will be held prior to EGD/[place].
--- NOTE | 2019-11-26 15:12 | PN ---
Physical Exam: SUBJECTIVE: Patient seen and examined this AM. No new complaints. No longer having any Black stools. OBJECTIVE: Vital Signs Period Temp Pulse Resp BP Sys/Zamudio Pulse Ox Last 24 Hr 97.8 F-98.3 F 80-92 18-20 97-115/59-73 99-100 GENERAL: A&Ox3, NAD HEAD: NCAT EYES: PERRL, EOMI ENT: MMM NECK: Supple, No JVD LUNGS: Diminished breath sounds at the bases, no wheezes HEART: Regular rate and rhythm, S1, S2 without murmur ABDOMEN: Soft, nontender, nondistended, + bowel sounds, no guarding, no rebound EXTREMITIES: No edema. NEUROLOGICAL: Cranial nerves II through XII grossly intact. Normal speech SKIN: Warm, dry Laboratory Last Values WBC 8.4 K/mm3 (4.0-10.0) 11/26/19 07:18 RBC 3.98 M/mm3 (3.60-5.2) 11/26/19 07:18 Hgb 7.5 GM/dL (10.7-15.3) L 11/26/19 07:18 Hct 24.9 % (32.4-45.2) L 11/26/19 07:18 MCV 62.7 fl (80-96) L 11/26/19 07:18 MCH 18.9 pg (25.7-33.7) L 11/26/19 07:18 MCHC 30.2 g/dl (32.0-36.0) L 11/26/19 07:18 RDW 22.4 % (11.6-15.6) H 11/26/19 07:18 Plt Count 516 K/MM3 (134-434) H 11/26/19 07:18 MPV 8.8 fl (7.5-11.1) 11/26/19 07:18 Absolute Neuts (auto) 5.8 K/mm3 (1.5-8.0) 11/22/19 07:48 Neutrophils % 67.0 % (42.8-82.8) 11/22/19 07:48 Lymphocytes % 22.9 % (8-40) 11/22/19 07:48 Monocytes % 8.5 % (3.8-10.2) 11/22/19 07:48 Eosinophils % 0.7 % (0-4.5) 11/22/19 07:48 Basophils % 0.9 % (0-2.0) 11/22/19 07:48 Nucleated RBC % 0 % (0-0) 11/22/19 07:48 Hypochromia 1+ 11/22/19 07:48 Platelet Estimate Normal 11/22/19 07:48 Polychromasia 0 11/22/19 07:48 Poikilocytosis 1+ 11/22/19 07:48 Anisocytosis 2+ 11/22/19 07:48 Microcytosis 2+ 11/22/19 07:48 Macrocytosis 0 11/22/19 07:48 Retic Count 1.26 % (0.5-1.5) 11/25/19 06:42 PT with INR 13.40 SEC (9.7-13.0) H 11/23/19 09:08 INR 1.13 (0.83-1.09) H 11/23/19 09:08 PTT (Actin FS) 36.8 SECONDS (25.2-36.5) H 11/23/19 09:08 Func Antithrombin III 110 % (72-124) 11/23/19 05:39 Sodium 137 mmol/L (136-145) 11/26/19 06:00 Potassium 4.1 mmol/L (3.5-5.1) 11/26/19 06:00 Chloride 102 mmol/L (98-107) 11/26/19 06:00 Carbon Dioxide 26 mmol/L (21-32) 11/26/19 06:00 Anion Gap 9 MMOL/L (8-16) 11/26/19 06:00 BUN 6.4 mg/dL (7-18) L 11/26/19 06:00 Creatinine 0.6 mg/dL (0.55-1.3) 11/26/19 06:00 Est GFR (CKD-EPI)AfAm 124.92 11/26/19 06:00 Est GFR (CKD-EPI)NonAf 107.78 11/26/19 06:00 Random Glucose 86 mg/dL (74-106) 11/26/19 06:00 Calcium 8.1 mg/dL (8.5-10.1) L 11/26/19 06:00 Phosphorus 4.3 mg/dL (2.5-4.9) 11/26/19 06:00 Magnesium 2.8 mg/dL (1.8-2.4) H 11/26/19 06:00 Iron 16 ug/dL (50-175) L 11/22/19 07:48 TIBC 355 ug/dL (250-450) 11/22/19 07:48 Iron Saturation 4 % (17.5-39) L 11/22/19 07:48 Unsaturated IBC 339 ug/dL (200-275) H 11/22/19 07:48 Transferrin 273 mg/dL (192-364) 11/22/19 09:08 Ferritin 10.3 ng/ml (8-388) 11/22/19 07:48 Total Bilirubin 0.6 mg/dL (0.2-1) 11/25/19 06:42 AST 12 U/L (15-37) L 11/25/19 06:42 ALT 23 U/L (13-61) 11/25/19 06:42 Alkaline Phosphatase 81 U/L (45-117) 11/25/19 06:42 Creatine Kinase 43 U/L (26-192) 11/22/19 07:48 Troponin I < 0.02 ng/ml (0.00-0.05) 11/22/19 07:48 Total Protein 6.9 g/dl (6.4-8.2) 11/25/19 06:42 Albumin 2.8 g/dl (3.4-5.0) L 11/25/19 06:42 Lipase 73 U/L (73-393) 11/22/19 07:48 Serum , Qual Negative 11/22/19 07:48 Urine Color Yellow 11/22/19 15:23 Urine Appearance Clear 11/22/19 15:23 Urine pH 7.5 (5.0-8.0) D 11/22/19 15:23 Ur Specific [place] 1.030 (1.010-1.035) 11/22/19 15:23 Urine Protein Negative (NEGATIVE) 11/22/19 15:23 Urine Glucose (UA) Negative (NEGATIVE) 11/22/19 15:23 Urine Ketones Negative (NEGATIVE) 11/22/19 15:23 Urine Blood 1+ (NEGATIVE) H 11/22/19 15:23 Urine Nitrite Negative (NEGATIVE) 11/22/19 15:23 Urine Bilirubin Negative (NEGATIVE) 11/22/19 15:23 Urine Urobilinogen 0.2 mg/dL (0.2-1.0) 11/22/19 15:23 Ur Leukocyte Esterase Negative (NEGATIVE) 11/22/19 15:23 Urine WBC (Auto) 20 /uL (0-25.8) 11/22/19 15:23 Urine RBC (Auto) 9 /uL (0-23.9) 11/22/19 15:23 Urine Casts (Auto) 0 /uL (0-3.1) 11/22/19 15:23 U Epithel Cells (Auto) 11 /uL (0-25.1) 11/22/19 15:23 Urine Bacteria (Auto) 112 /uL (0-1359) 11/22/19 15:23 Stool Occult Blood Negative (NEGATIVE) 11/22/19 08:15 COVID-19 (JONAH) Not detected (Not Detected) 11/23/19 08:59 SARS-CoV-2 Ab Interp Non-reactive (NONREACTIVE) 11/23/19 17:55 Blood Type A POSITIVE 11/22/19 08:15 Antibody Screen Negative 11/22/19 08:15 Crossmatch See Detail 11/22/19 08:15 Microbiology 11/22/19 15:23 Urine - Urine [place] Urine Culture - Final NO GROWTH OBTAINED Active Medications Acetaminophen (Ofirmev Injection -) 1,000 mg IVPB Q6H PRN PRN Reason: PAIN LEVEL 7 - 10 Stop: 11/26/19 17:25 Last Admin: 11/26/19 13:07 Dose: 1,000 mg Documented by: Bisacodyl (Dulcolax -) 10 mg PO ONCE ONE Stop: 11/26/19 16:01 Bupropion HCl (Wellbutrin Xl -) 150 mg PO DAILY [facility] Last Admin: 11/26/19 10:05 Dose: 150 mg Documented by: Clonazepam (Klonopin -) 2 mg PO DAILY [facility] Last Admin: 11/26/19 10:05 Dose: 2 mg Documented by: Docusate Sodium (Colace -) 100 mg PO BID [facility] Last Admin: 11/26/19 10:05 Dose: Not Given Documented by: Lactulose (Cephulac (Oral Use)) 20 gm PO TID GEENA Last Admin: 11/26/19 13:57 Dose: 20 gm Documented by: Morphine Sulfate (Morphine Sulfate) 1 mg IVPUSH Q4H PRN PRN Reason: PAIN LEVEL 7 - 10 Last Admin: 11/26/19 14:18 Dose: 1 mg Documented by: Polyethylene Glycol (Miralax (For Daily Use) -) 17 gm PO BID GEENA Last Admin: 11/26/19 10:05 Dose: 17 gm Documented by: Polyethylene Glycol/Electrolytes (Golytely Solution -) 4,000 ml PO ONCE ONE Stop: 11/26/19 18:01 Senna (Senna -) 2 tab PO HS PRN PRN Reason: CONSTIPATION Last Admin: 11/23/19 21:54 Dose: 2 tab Documented by: Simethicone (Mylicon -) 80 mg PO Q4H PRN PRN Reason: DYSPEPSIA Last Admin: 11/26/19 13:57 Dose: 80 mg Documented by: Tramadol HCl (Ultram -) 50 mg PO Q6H PRN PRN Reason: PAIN LEVEL 6-10 Last Admin: 11/25/19 13:19 Dose: 50 mg Documented by: ASSESSMENT/PLAN: 49 y/o F PMHx Depression, Uterine fibroids presenting with diffuse abdominal pain, admitted for portal vein thrombosis on imaging. #Portal vein thrombosis -Etiology to be determined -Continue therapeutic dose Lovenox; No longer having dark stools however hold Lovenox this evening for procedure tmrw -Hypercoaguability workup and Anti-phospholipid syndrome testing in addition to Jak2 and BCR-ABL testing in progress -Analgesia -MRCP does not suggest neoplastic process #Iron deficiency anemia -Dark stool + Worsening anemia -Transfuse to keep > 7.0 -IV Iron supplementation -GI consult appreciated; For EGG/Colonoscopy on 11/26 Visit type - Emergency Visit Emergency Visit: Yes ED Registration Date: 11/22/19 Care time: The patient presented to the Emergency Department on the above date and was hospitalized for further evaluation of their emergent condition. - New Patient This patient is new to me today: Yes Date on this admission: 11/26/19 - Critical Care Critical Care patient: No - Discharge Referral Referred to [facility] No ATTENDING PHYSICIAN STATEMENT I saw and evaluated the patient. I reviewed the resident's note and discussed the case with the resident. I agree with the resident's findings and plan as documented. SUBJECTIVE: OBJECTIVE: ASSESSMENT AND PLAN:
[2019-11-26] MEDS ORDERED: BISACODYL 5 MG TABLET.DR (FP) PO ONE (16:00)
--- NOTE | 2019-11-26 16:39 | PN ---
Physical Exam: SUBJECTIVE: Patient seen and examined. Complains of abdominal pain, decreased from yesterday. BM 2 days prior, dark black stool OBJECTIVE: Vital Signs Period Temp Pulse Resp BP Sys/Zamudio Pulse Ox Last 24 Hr 97.8 F-98.3 F 80-92 18-20 97-115/59-73 99-100 GENERAL: The patient is awake, alert, and fully oriented, in no acute distress. HEAD: Normal with no signs of trauma. EYES: PERRL, extraocular movements intact, sclera anicteric, conjunctiva clear. No ptosis. ENT: Ears normal, nares patent, oropharynx clear without exudates, moist mucous membranes. NECK: Trachea midline, full range of motion, supple. LUNGS: Breath sounds equal, clear to auscultation bilaterally, no wheezes, no crackles, no accessory muscle use. HEART: Regular rate and rhythm, S1, S2 without murmur, rub or gallop. ABDOMEN: Soft, distended. normoactive bowel sounds, no guarding, no rebound, no hepatosplenomegaly, no masses. Abdominal tenderness diffusely. EXTREMITIES: 2+ pulses, warm, well-perfused, no edema. NEUROLOGICAL: Cranial nerves II through XII grossly intact. Normal speech, gait not observed. PSYCH: Normal mood, normal affect. SKIN: Warm, dry, normal turgor, no rashes or lesions noted Laboratory Results - last 24 hr 11/25/19 11/25/19 11/26/19 15:00 23:20 06:00 WBC 8.4 8.6 RBC 4.29 4.09 Hgb 8.0 L 7.7 L Hct 26.9 L 25.4 L MCV 62.7 L 62.2 L MCH 18.6 L 18.9 L MCHC 29.6 L 30.4 L RDW 22.6 H 22.2 H Plt Count 499 H 493 H MPV 8.4 8.6 Sodium 137 Potassium 4.1 Chloride 102 Carbon Dioxide 26 Anion Gap 9 BUN 6.4 L Creatinine 0.6 Est GFR (CKD-EPI)AfAm 124.92 Est GFR (CKD-EPI)NonAf 107.78 Random Glucose 86 Calcium 8.1 L Phosphorus 4.3 Magnesium 2.8 H 11/26/19 07:18 WBC 8.4 RBC 3.98 Hgb 7.5 L Hct 24.9 L MCV 62.7 L MCH 18.9 L MCHC 30.2 L RDW 22.4 H Plt Count 516 H MPV 8.8 Sodium Potassium Chloride Carbon Dioxide Anion Gap BUN Creatinine Est GFR (CKD-EPI)AfAm Est GFR (CKD-EPI)NonAf Random Glucose Calcium Phosphorus Magnesium Active Medications Generic Name Dose Route Start Last Admin Trade Name Freq PRN Reason Stop Dose Admin Acetaminophen 1,000 mg 11/25/19 17:25 11/26/19 13:07 Ofirmev Injection - IVPB 11/26/19 17:25 1,000 mg Q6H PRN Administration PAIN LEVEL 7 - 10 Bupropion HCl 150 mg 11/23/19 10:00 11/26/19 10:05 Wellbutrin Xl - PO 150 mg DAILY GEENA Administration Clonazepam 2 mg 11/23/19 10:00 11/26/19 10:05 Klonopin - PO 2 mg DAILY GEENA Administration Docusate Sodium 100 mg 11/23/19 22:00 11/26/19 10:05 Colace - PO Not Given BID GEENA Lactulose 20 gm 11/24/19 14:00 11/26/19 13:57 Cephulac (Oral Use) PO 20 gm TID GEENA Administration Morphine Sulfate 1 mg 11/25/19 18:59 11/26/19 14:18 Morphine Sulfate IVPUSH 1 mg Q4H PRN Administration PAIN LEVEL 7 - 10 Polyethylene Glycol 17 gm 11/23/19 22:00 11/26/19 10:05 Miralax (For Daily Use) - PO 17 gm BID GEENA Administration Polyethylene Glycol/Electrolytes 4,000 ml 11/26/19 18:00 Golytely Solution - PO 11/26/19 18:01 ONCE ONE Senna 2 tab 11/23/19 16:20 11/23/19 21:54 Senna - PO 2 tab HS PRN Administration CONSTIPATION Simethicone 80 mg 11/25/19 22:58 11/26/19 13:57 Mylicon - PO 80 mg Q4H PRN Administration DYSPEPSIA Tramadol HCl 50 mg 11/24/19 09:06 11/25/19 13:19 Ultram - PO 50 mg Q6H PRN Administration PAIN LEVEL 6-10 ASSESSMENT/PLAN: Pt is a 49 year old female with PMHx of depression presenting with abdominal pain diffusely, admitted for findings of portal vein thrombosis on abdomen/pelvis CT. Uterine fibroids also seen, negative for diverticulitis, appendicitis. #Portal vein thrombosis -Seen in main portal vein and left/right portal vein branches on abdomen/pelvis CT -Started on Lovenox 80mg BID, therapeutic dose; held tonight for colonoscopy/EGD tomorrow -Hypercoaguability tests ordered -Hematology consulted -GI consulted -IV morphine analgesia per oncology #Constipation -BM 2 days prior; black tarry stool -bowel regimen and enema PRN #Iron deficiency anemia -H/H 7.5; f/u in AM -black tarry BM 2 nights prior; GI following; for EGD/colonoscopy tomorrow to evaluate #Uterine fibroids -seen on pelvic/abdomen CT #Hx of depression -continue home clonazepam and wellbutrin PPx Lovenox 80mg BID for PVT; held for colonoscopy/EGD in AM FEN -No standing fluids -Monitor electrolytes -Regular diet Dispo Admit to med surg. PVT seen on abdomen/pelvis CT, on Lovenox therapeutic dose, held for colonoscopy/EGD. Heme and GI consulted. Microcytic anemia, finishing LMP - follow H/H. ATTENDING PHYSICIAN STATEMENT I saw and evaluated the patient. I reviewed the resident's note and discussed the case with the resident. I agree with the resident's findings and plan as documented. SUBJECTIVE: OBJECTIVE: ASSESSMENT AND PLAN:
[2019-11-26] MEDS ORDERED: PEG 3350/NA SULF BICARB CL/KCL 4000 ML SOLN.RECON PO ONE (18:00)
[2019-11-26] MEDS ORDERED: ONDANSETRON 4 MG/2 ML VIAL IVPUSH ONE (20:14)
[2019-11-26] MEDS ORDERED: morphine CARPU-JECT 2 MG/1 ML DISP.SYRIN IVPUSH PRN (20:52)
[2019-11-26] MEDS ORDERED: MORPHINE SULFATE 2 MG/ML VIAL IVPUSH ONE (20:57)
[2019-11-27] MEDS: SENNOSIDES 8.6MG TABLET (FP) PO PRN ×2 (01:34→21:03)
[2019-11-27] MEDS: LACTULOSE 20 GM/30 ML UDC (FOR ORAL USE ONLY) PO SCH ×2 (01:34→06:13)
[2019-11-27] MEDS: MORPHINE SULFATE 2 MG/ML VIAL IVPUSH PRN ×4 (03:01→21:03)
[2019-11-27] MEDS ORDERED: MORPHINE SULFATE 2 MG/ML VIAL IVPUSH ONE ×2 (06:27→10:22)
[2019-11-27 08:34] LABS: HEMATOCRIT 25.5 % (32.4-45.2); HEMOGLOBIN 7.5 GM/dL (10.7-15.3); MCHC 29.6 g/dl (32.0-36.0); MEAN CELL VOLUME 62.7 fl (80-96); MEAN PLT VOLUME 7.2 fl (7.5-11.1); PLATELET COUNT 522 K/MM3 (134-434); RBC 4.07 M/mm3 (3.60-5.2); RDW 22.2 % (11.6-15.6)
[2019-11-27 08:41] LABS: MCH 18.6 pg (25.7-33.7)
[2019-11-27 08:57] LABS: ALBUMIN 2.6 g/dl (3.4-5.0); BILIRUBIN,TOTAL 0.3 mg/dL (0.2-1); BLOOD UREA NITROGEN 6.9 mg/dL (7-18); CALCIUM 8.5 mg/dL (8.5-10.1); CREATININE 0.6 mg/dL (0.55-1.3); MAGNESIUM 2.6 mg/dL (1.8-2.4); PHOSPHOROUS 3.9 mg/dL (2.5-4.9); POTASSIUM 3.9 mmol/L (3.5-5.1); TOT PROT 6.7 g/dl (6.4-8.2)
[2019-11-27] MEDS ORDERED: ACETAMINOPHEN 1000 MG/100 ML VIAL (NON FORMULARY) IVPB ONE (10:04)
[2019-11-27] MEDS: POLYETHYLENE GLYCOL 3350 119 GM BTL PO SCH ×2 (10:32→22:27)
[2019-11-27] MEDS: clonazePAM 2 MG TABLET PO SCH ×2 (10:32→14:57)
[2019-11-27] MEDS: DOCUSATE SODIUM 100 MG CAPSULE (FP) PO SCH ×2 (10:32→22:27)
--- NOTE | 2019-11-27 12:11 | PN ---
Progress Note (short form) - Note Progress Note: EGD complete, Normal. Colon = poor prep, incomplete due to prep. Reports will be left in procedural section of the physical chart and will be scanned into [employer]. Patient describes extremely heavy menstrual periods with passage of significant clots. History of fibroids as well. 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 Resume A/C now.
--- NOTE | 2019-11-27 14:44 | PN ---
Teaching Attending Note Name of Resident: Damon Colin ATTENDING PHYSICIAN STATEMENT I saw and evaluated the patient. I reviewed the resident's note and discussed the case with the resident. I agree with the resident's findings and plan as documented. SUBJECTIVE: Ongoing abdominal discomfort, mostly epigastric. Large black BM 3 nights ago. No fever/chills/nausea/vomiting/lightheadedness. OBJECTIVE: Afebrile, Hemodynamically stable. Last Vital Signs Temp Pulse Resp BP Pulse Ox 98.2 F 78 20 106/53 L 98 11/27/19 14:36 11/27/19 14:36 11/27/19 14:36 11/27/19 14:36 11/27/19 14:36 Heart - S1, S2, RRR Lungs - clear to auscultation Abdomen - Soft, mild generalized tenderness dom Epigastrum. Extremities - trace edema, no calf tenderness. Neuro - AAO x 3. Tone/Power normal all extremities. Laboratory Results - last 24 hr 11/27/19 11/27/19 11/27/19 08:10 08:10 08:10 WBC 8.0 RBC 4.07 Hgb 7.5 L Hct 25.5 L MCV 62.7 L MCH 18.6 L MCHC 29.6 L RDW 22.2 H Plt Count 522 H MPV 7.2 L D Sodium 139 Potassium 3.9 Chloride 104 Carbon Dioxide 30 Anion Gap 5 L BUN 6.9 L Creatinine 0.6 Est GFR (CKD-EPI)AfAm 124.92 Est GFR (CKD-EPI)NonAf 107.78 Random Glucose 92 Calcium 8.5 Phosphorus 3.9 Magnesium 2.6 H Total Bilirubin 0.3 AST 27 ALT 34 Alkaline Phosphatase 89 Total Protein 6.7 Albumin 2.6 L Serum , Qual Negative Current Medications Generic Name Dose Route Start Last Admin Trade Name Freq PRN Reason Stop Dose Admin Bisacodyl 20 mg 11/27/19 16:00 Dulcolax - PO 11/27/19 16:01 ONCE ONE Bupropion HCl 150 mg 11/23/19 10:00 11/27/19 10:32 Wellbutrin Xl - PO Not Given DAILY GEENA Clonazepam 2 mg 11/23/19 10:00 11/27/19 10:32 Klonopin - PO Not Given DAILY GEENA Docusate Sodium 100 mg 11/23/19 22:00 11/27/19 10:32 Colace - PO Not Given BID GEENA Enoxaparin Sodium 80 mg 11/27/19 22:00 Lovenox - SQ 11/27/19 22:01 BID GEENA Morphine Sulfate 1 mg 11/25/19 18:59 11/27/19 06:33 Morphine Sulfate IVPUSH 1 mg Q4H PRN Administration PAIN LEVEL 7 - 10 Polyethylene Glycol 17 gm 11/23/19 22:00 11/27/19 10:32 Miralax (For Daily Use) - PO Not Given BID GEENA Polyethylene Glycol/Electrolytes 4,000 ml 11/27/19 17:00 Golytely Solution - PO 11/27/19 17:01 ONCE ONE Senna 2 tab 11/23/19 16:20 11/27/19 01:34 Senna - PO 2 tab HS PRN Administration CONSTIPATION Simethicone 80 mg 11/25/19 22:58 11/26/19 20:25 Mylicon - PO 80 mg Q4H PRN Administration DYSPEPSIA Tramadol HCl 50 mg 11/24/19 09:06 11/25/19 13:19 Ultram - PO 50 mg Q6H PRN Administration PAIN LEVEL 6-10 Home Medications Medication Instructions Recorded Bupropion HCl [Wellbutrin Sr] 150 mg PO DAILY 11/22/19 Clonazepam [Klonopin] 2 mg PO DAILY 11/22/19 Fluconazole 150 mg PO DAILY 11/24/19 Sulfamethoxazole/Trimethoprim 1 tab PO BID 11/24/19 [Bactrim Ds -] ASSESSMENT AND PLAN: 49 year old female with history of Depression, Uterine Fibroid (with Menorrhagia) presents with diffuse abdominal pain and constipation for 5 days, admitted for findings of portal vein thrombosis on CT A/P. 1. Acute Portal Vein Thrombosis, etiology unclear. Started on Lovenox SQ - awaiting GI work-up prior to transition to oral anti- coagulant. Hypercoagulable work-up as per Hematology/Oncology H/O following - rec MRCP which shows R Renal Cyst and narrowing of CBD in the puma hepatis likely external compression due to extensive adjacent venous thrombosis. IV morphine analgesia as per Oncology. 2. Iron Deficiency Anemia Ferritin 10 s/p IV Iron x 2. Black BM 3 nights ago FOBT negative, re-requested. Further Ix with EGD/[place] by GI 11/27/19 - EGD reportedly normal, for repeat Colonoscopy tomorrow due to inadequate bowel prep. Monitor H/H 3. Constipation - bowel regimen intensified +/- Enema PRN. 4. Depression - continue Bupropion, Clonazepam. 5. r Renal Cyst, incidental finding on MRCP - for Urology evaluation as out- patient. DVT Px - on Lovenox SQ treatment dose - will be held prior to re-attempt at Colonoscopy tomorrow.
--- NOTE | 2019-11-27 15:17 | PN ---
Physical Exam: SUBJECTIVE: Patient seen and examined. Complains of abdominal pain. For EGD and colonoscopy today. OBJECTIVE: Vital Signs Period Temp Pulse Resp BP Sys/Zamudio Pulse Ox Last 24 Hr 97.5 F-98.5 F 75-105 18-98 96-122/53-77 16-100 GENERAL: The patient is awake, alert, and fully oriented, in no acute distress. HEAD: Normal with no signs of trauma. EYES: PERRL, extraocular movements intact, sclera anicteric, conjunctiva clear. No ptosis. ENT: Ears normal, nares patent, oropharynx clear without exudates, moist mucous membranes. NECK: Trachea midline, full range of motion, supple. LUNGS: Breath sounds equal, clear to auscultation bilaterally, no wheezes, no crackles, no accessory muscle use. HEART: Regular rate and rhythm, S1, S2 without murmur, rub or gallop. ABDOMEN: Soft, distended. normoactive bowel sounds, no guarding, no rebound, no hepatosplenomegaly, no masses. Abdominal tenderness diffusely. EXTREMITIES: 2+ pulses, warm, well-perfused, no edema. NEUROLOGICAL: Cranial nerves II through XII grossly intact. Normal speech, gait not observed. PSYCH: Normal mood, normal affect. SKIN: Warm, dry, normal turgor, no rashes or lesions noted Laboratory Results - last 24 hr 11/27/19 11/27/19 11/27/19 08:10 08:10 08:10 WBC 8.0 RBC 4.07 Hgb 7.5 L Hct 25.5 L MCV 62.7 L MCH 18.6 L MCHC 29.6 L RDW 22.2 H Plt Count 522 H MPV 7.2 L D Sodium 139 Potassium 3.9 Chloride 104 Carbon Dioxide 30 Anion Gap 5 L BUN 6.9 L Creatinine 0.6 Est GFR (CKD-EPI)AfAm 124.92 Est GFR (CKD-EPI)NonAf 107.78 Random Glucose 92 Calcium 8.5 Phosphorus 3.9 Magnesium 2.6 H Total Bilirubin 0.3 AST 27 ALT 34 Alkaline Phosphatase 89 Total Protein 6.7 Albumin 2.6 L Serum , Qual Negative Active Medications Generic Name Dose Route Start Last Admin Trade Name Freq PRN Reason Stop Dose Admin Bisacodyl 20 mg 11/27/19 16:00 Dulcolax - PO 11/27/19 16:01 ONCE ONE Bupropion HCl 150 mg 11/23/19 10:00 11/27/19 14:57 Wellbutrin Xl - PO 150 mg DAILY GEENA Administration Clonazepam 2 mg 11/23/19 10:00 11/27/19 14:57 Klonopin - PO 2 mg DAILY GEENA Administration Docusate Sodium 100 mg 11/23/19 22:00 11/27/19 10:32 Colace - PO Not Given BID GEENA Enoxaparin Sodium 80 mg 11/27/19 22:00 Lovenox - SQ 11/27/19 22:01 BID GEENA Morphine Sulfate 1 mg 11/25/19 18:59 11/27/19 06:33 Morphine Sulfate IVPUSH 1 mg Q4H PRN Administration PAIN LEVEL 7 - 10 Polyethylene Glycol 17 gm 11/23/19 22:00 11/27/19 10:32 Miralax (For Daily Use) - PO Not Given BID GEENA Polyethylene Glycol/Electrolytes 4,000 ml 11/27/19 17:00 Golytely Solution - PO 11/27/19 17:01 ONCE ONE Senna 2 tab 11/23/19 16:20 11/27/19 01:34 Senna - PO 2 tab HS PRN Administration CONSTIPATION Simethicone 80 mg 11/25/19 22:58 11/26/19 20:25 Mylicon - PO 80 mg Q4H PRN Administration DYSPEPSIA Tramadol HCl 50 mg 11/24/19 09:06 11/25/19 13:19 Ultram - PO 50 mg Q6H PRN Administration PAIN LEVEL 6-10 ASSESSMENT/PLAN: Pt is a 49 year old female with PMHx of depression presenting with abdominal pain diffusely, admitted for findings of portal vein thrombosis on abdomen/pelvis CT. Uterine fibroids also seen, negative for diverticulitis, appendicitis. #Portal vein thrombosis -Seen in main portal vein and left/right portal vein branches on abdomen/pelvis CT -On Lovenox 80mg BID; receiving one dose tonight and held in AM for repeat colonoscopy -Hematology consultedHypercoaguability tests ordered -GI consulted -IV morphine PRN #Constipation -BM 2 days prior; black tarry stool -bowel regimen and enema PRN -endoscopy with normal findings -for repeat colonoscopy in AM due to incomplete prep; encouraged pt to complete bowel prep #Iron deficiency anemia -H/H 7.5; f/u in AM -repeat colonoscopy in AM #Uterine fibroids -seen on pelvic/abdomen CT #Hx of depression -continue home clonazepam and wellbutrin PPx Lovenox 80mg BID for PVT; held in AM for repeat colonoscopy FEN -No standing fluids -Monitor electrolytes NPO after midnight for repeat colonoscopy Dispo Admit to med surg. PVT seen on abdomen/pelvis CT, on Lovenox therapeutic dose, held for colonoscopy/EGD. Heme and GI consulted. Microcytic anemia, finishing LMP - follow H/H. Visit type - Emergency Visit Emergency Visit: Yes ED Registration Date: 11/22/19 Care time: The patient presented to the Emergency Department on the above date and was hospitalized for further evaluation of their emergent condition. - New Patient This patient is new to me today: No - Critical Care Critical Care patient: No ATTENDING PHYSICIAN STATEMENT I saw and evaluated the patient. I reviewed the resident's note and discussed the case with the resident. I agree with the resident's findings and plan as documented. SUBJECTIVE: OBJECTIVE: ASSESSMENT AND PLAN:
[2019-11-27] MEDS ORDERED: BISACODYL 5 MG TABLET.DR (FP) PO ONE (16:00)
--- NOTE | 2019-11-27 16:45 | PN ---
Physical Exam: SUBJECTIVE: Patient seen and examined this AM. No new complaints. EGD completed today and patient tolerated well. For colonoscopy tmrw. OBJECTIVE: Vital Signs Period Temp Pulse Resp BP Sys/Zamudio Pulse Ox Last 24 Hr 97.5 F-98.5 F 75-105 18-98 96-122/53-77 16-100 GENERAL: A&Ox3, NAD HEAD: NCAT EYES: PERRL, EOMI ENT: MMM NECK: Supple, No JVD LUNGS: Diminished breath sounds at the bases, no wheezes HEART: Regular rate and rhythm, S1, S2 without murmur ABDOMEN: Soft, nontender, nondistended, + bowel sounds, no guarding, no rebound EXTREMITIES: No edema. NEUROLOGICAL: Cranial nerves II through XII grossly intact. Normal speech SKIN: Warm, dry Laboratory Last Values WBC 8.0 K/mm3 (4.0-10.0) 11/27/19 08:10 RBC 4.07 M/mm3 (3.60-5.2) 11/27/19 08:10 Hgb 7.5 GM/dL (10.7-15.3) L 11/27/19 08:10 Hct 25.5 % (32.4-45.2) L 11/27/19 08:10 MCV 62.7 fl (80-96) L 11/27/19 08:10 MCH 18.6 pg (25.7-33.7) L 11/27/19 08:10 MCHC 29.6 g/dl (32.0-36.0) L 11/27/19 08:10 RDW 22.2 % (11.6-15.6) H 11/27/19 08:10 Plt Count 522 K/MM3 (134-434) H 11/27/19 08:10 MPV 7.2 fl (7.5-11.1) L D 11/27/19 08:10 Absolute Neuts (auto) 5.8 K/mm3 (1.5-8.0) 11/22/19 07:48 Neutrophils % 67.0 % (42.8-82.8) 11/22/19 07:48 Lymphocytes % 22.9 % (8-40) 11/22/19 07:48 Monocytes % 8.5 % (3.8-10.2) 11/22/19 07:48 Eosinophils % 0.7 % (0-4.5) 11/22/19 07:48 Basophils % 0.9 % (0-2.0) 11/22/19 07:48 Nucleated RBC % 0 % (0-0) 11/22/19 07:48 Hypochromia 1+ 11/22/19 07:48 Platelet Estimate Normal 11/22/19 07:48 Polychromasia 0 11/22/19 07:48 Poikilocytosis 1+ 11/22/19 07:48 Anisocytosis 2+ 11/22/19 07:48 Microcytosis 2+ 11/22/19 07:48 Macrocytosis 0 11/22/19 07:48 Retic Count 1.26 % (0.5-1.5) 11/25/19 06:42 PT with INR 13.40 SEC (9.7-13.0) H 11/23/19 09:08 INR 1.13 (0.83-1.09) H 11/23/19 09:08 PTT (Actin FS) 36.8 SECONDS (25.2-36.5) H 11/23/19 09:08 Func Antithrombin III 110 % (72-124) 11/23/19 05:39 Sodium 139 mmol/L (136-145) 11/27/19 08:10 Potassium 3.9 mmol/L (3.5-5.1) 11/27/19 08:10 Chloride 104 mmol/L (98-107) 11/27/19 08:10 Carbon Dioxide 30 mmol/L (21-32) 11/27/19 08:10 Anion Gap 5 MMOL/L (8-16) L 11/27/19 08:10 BUN 6.9 mg/dL (7-18) L 11/27/19 08:10 Creatinine 0.6 mg/dL (0.55-1.3) 11/27/19 08:10 Est GFR (CKD-EPI)AfAm 124.92 11/27/19 08:10 Est GFR (CKD-EPI)NonAf 107.78 11/27/19 08:10 Random Glucose 92 mg/dL (74-106) 11/27/19 08:10 Calcium 8.5 mg/dL (8.5-10.1) 11/27/19 08:10 Phosphorus 3.9 mg/dL (2.5-4.9) 11/27/19 08:10 Magnesium 2.6 mg/dL (1.8-2.4) H 11/27/19 08:10 Iron 16 ug/dL (50-175) L 11/22/19 07:48 TIBC 355 ug/dL (250-450) 11/22/19 07:48 Iron Saturation 4 % (17.5-39) L 11/22/19 07:48 Unsaturated IBC 339 ug/dL (200-275) H 11/22/19 07:48 Transferrin 273 mg/dL (192-364) 11/22/19 09:08 Ferritin 10.3 ng/ml (8-388) 11/22/19 07:48 Total Bilirubin 0.3 mg/dL (0.2-1) 11/27/19 08:10 AST 27 U/L (15-37) 11/27/19 08:10 ALT 34 U/L (13-61) 11/27/19 08:10 Alkaline Phosphatase 89 U/L (45-117) 11/27/19 08:10 Creatine Kinase 43 U/L (26-192) 11/22/19 07:48 Troponin I < 0.02 ng/ml (0.00-0.05) 11/22/19 07:48 Total Protein 6.7 g/dl (6.4-8.2) 11/27/19 08:10 Albumin 2.6 g/dl (3.4-5.0) L 11/27/19 08:10 Lipase 73 U/L (73-393) 11/22/19 07:48 Serum , Qual Negative 11/27/19 08:10 Urine Color Yellow 11/22/19 15:23 Urine Appearance Clear 11/22/19 15:23 Urine pH 7.5 (5.0-8.0) D 11/22/19 15:23 Ur Specific [place] 1.030 (1.010-1.035) 11/22/19 15:23 Urine Protein Negative (NEGATIVE) 11/22/19 15:23 Urine Glucose (UA) Negative (NEGATIVE) 11/22/19 15:23 Urine Ketones Negative (NEGATIVE) 11/22/19 15:23 Urine Blood 1+ (NEGATIVE) H 09/19/20 15:23 Urine Nitrite Negative (NEGATIVE) 11/22/19 15:23 Urine Bilirubin Negative (NEGATIVE) 11/22/19 15:23 Urine Urobilinogen 0.2 mg/dL (0.2-1.0) 11/22/19 15:23 Ur Leukocyte Esterase Negative (NEGATIVE) 11/22/19 15:23 Urine WBC (Auto) 20 /uL (0-25.8) 11/22/19 15:23 Urine RBC (Auto) 9 /uL (0-23.9) 11/22/19 15:23 Urine Casts (Auto) 0 /uL (0-3.1) 11/22/19 15:23 U Epithel Cells (Auto) 11 /uL (0-25.1) 11/22/19 15:23 Urine Bacteria (Auto) 112 /uL (0-1359) 11/22/19 15:23 Stool Occult Blood Negative (NEGATIVE) 11/22/19 08:15 COVID-19 (JONAH) Not detected (Not Detected) 11/23/19 08:59 SARS-CoV-2 Ab Interp Non-reactive (NONREACTIVE) 11/23/19 17:55 Blood Type A POSITIVE 11/22/19 08:15 Antibody Screen Negative 11/22/19 08:15 Crossmatch See Detail 11/22/19 08:15 Microbiology 11/22/19 15:23 Urine - Urine [place] Urine Culture - Final NO GROWTH OBTAINED Active Medications Bupropion HCl (Wellbutrin Xl -) 150 mg PO DAILY [facility] Last Admin: 11/27/19 14:57 Dose: 150 mg Documented by: Clonazepam (Klonopin -) 2 mg PO DAILY [facility] Last Admin: 11/27/19 14:57 Dose: 2 mg Documented by: Docusate Sodium (Colace -) 100 mg PO BID [facility] Last Admin: 11/27/19 10:32 Dose: Not Given Documented by: Enoxaparin Sodium (Lovenox -) 80 mg SQ BID [facility] Stop: 11/27/19 22:01 Morphine Sulfate (Morphine Sulfate) 2 mg IVPUSH Q4H PRN PRN Reason: PAIN LEVEL 7 - 10 Last Admin: 11/27/19 16:09 Dose: 2 mg Documented by: Polyethylene Glycol (Miralax (For Daily Use) -) 17 gm PO BID [facility] Last Admin: 11/27/19 10:32 Dose: Not Given Documented by: Polyethylene Glycol/Electrolytes (Golytely Solution -) 4,000 ml PO ONCE ONE Stop: 11/27/19 17:01 Senna (Senna -) 2 tab PO HS PRN PRN Reason: CONSTIPATION Last Admin: 11/27/19 01:34 Dose: 2 tab Documented by: Simethicone (Mylicon -) 80 mg PO Q4H PRN PRN Reason: DYSPEPSIA Last Admin: 11/26/19 20:25 Dose: 80 mg Documented by: Tramadol HCl (Ultram -) 50 mg PO Q6H PRN PRN Reason: PAIN LEVEL 6-10 Last Admin: 11/25/19 13:19 Dose: 50 mg Documented by: ASSESSMENT/PLAN: 49 y/o F PMHx Depression, Uterine fibroids presenting with diffuse abdominal pain, admitted for portal vein thrombosis on imaging. #Portal vein thrombosis -Etiology to be determined -Continue therapeutic dose Lovenox -Hypercoaguability workup and Anti-phospholipid syndrome testing in addition to Jak2 and BCR-ABL testing in progress -Analgesia -MRCP does not suggest neoplastic process #Iron deficiency anemia -Dark stool + Worsening anemia -Transfuse to keep > 7.0 -IV Iron supplementation -GI consult appreciated; EGD Completed today -For Colonoscopy on 11/27 Visit type - Emergency Visit Emergency Visit: Yes ED Registration Date: 11/22/19 Care time: The patient presented to the Emergency Department on the above date and was hospitalized for further evaluation of their emergent condition. - New Patient This patient is new to me today: Yes Date on this admission: 11/27/19 - Critical Care Critical Care patient: No - Discharge Referral Referred to [facility] Med P.C.: No ATTENDING PHYSICIAN STATEMENT I saw and evaluated the patient. I reviewed the resident's note and discussed the case with the resident. I agree with the resident's findings and plan as documented. SUBJECTIVE: OBJECTIVE: ASSESSMENT AND PLAN:
[2019-11-27] MEDS ORDERED: PEG 3350/NA SULF BICARB CL/KCL 4000 ML SOLN.RECON PO ONE (17:00)
[2019-11-27] MEDS ORDERED: POLYETHYLENE GLYCOL 3350 255 GM BTL PO ONE ×2 (17:00→20:55)
--- NOTE | 2019-11-27 17:33 | PN ---
Teaching Attending Note Name of Resident: Christina Thomas ATTENDING PHYSICIAN STATEMENT I saw and evaluated the patient. I reviewed the resident's note and discussed the case with the resident. I agree with the resident's findings and plan as documented. 49 y/o woman now with portal vein thrombosis, significant constipation and severe abdominal pain. s/p EGD without obvious malignancy; pending cscope tmo. BCR-ABL, JAK2, Flow for PNH and APL labs are pending. Once she is cleared by GI she will need to continue lovenox x 3 months and will need outpatient Hematology follow up to review the results of above workup.
[2019-11-27] MEDS: SIMETHICONE 80 MG TAB.CHEW (FP) PO PRN (21:03)
[2019-11-27] MEDS ORDERED: ENOXAPARIN NA (PORCINE) 80 MG/0.8 ML DISP.SYRIN SQ SCH (22:00)
[2019-11-28] MEDS: SIMETHICONE 80 MG TAB.CHEW (FP) PO PRN ×3 (00:05→20:13)
[2019-11-28] MEDS: MORPHINE SULFATE 2 MG/ML VIAL IVPUSH PRN ×4 (00:28→21:19)
[2019-11-28 08:30] LABS: HEMATOCRIT 24.7 % (32.4-45.2); HEMOGLOBIN 7.6 GM/dL (10.7-15.3); MCHC 30.7 g/dl (32.0-36.0); MEAN CELL VOLUME 63.9 fl (80-96); MEAN PLT VOLUME 7.6 fl (7.5-11.1); PLATELET COUNT 501 K/MM3 (134-434); RBC 3.87 M/mm3 (3.60-5.2); RDW 22.1 % (11.6-15.6); WHITE BLOOD COUNT 7.9 K/mm3 (4.0-10.0)
[2019-11-28 08:37] LABS: MCH 19.6 pg (25.7-33.7)
[2019-11-28 09:04] LABS: ALBUMIN 2.5 g/dl (3.4-5.0); ALK PHOS 87 U/L (45-117); ANION GAP 6 MMOL/L (8-16); BILIRUBIN,TOTAL < 0.1 mg/dL (0.2-1); BLOOD UREA NITROGEN 5.4 mg/dL (7-18); CALCIUM 8.3 mg/dL (8.5-10.1); CHLORIDE 105 mmol/L (98-107); CO2 27 mmol/L (21-32); CREATININE 0.5 mg/dL (0.55-1.3); GLUCOSE,RANDOM 92 mg/dL (74-106); MAGNESIUM 2.4 mg/dL (1.8-2.4); PHOSPHOROUS 4.3 mg/dL (2.5-4.9); POTASSIUM 4.1 mmol/L (3.5-5.1); SGOT/AST 31 U/L (15-37); SGPT/ALT 44 U/L (13-61); SODIUM 138 mmol/L (136-145); TOT PROT 6.6 g/dl (6.4-8.2)
[2019-11-28] MEDS: DOCUSATE SODIUM 100 MG CAPSULE (FP) PO SCH ×3 (09:32→21:22)
[2019-11-28] MEDS: clonazePAM 2 MG TABLET PO SCH ×2 (09:33→13:41)
[2019-11-28] MEDS: POLYETHYLENE GLYCOL 3350 119 GM BTL PO SCH ×2 (09:33→21:20)
--- NOTE | 2019-11-28 12:53 | PN ---
Progress Note (short form) - Note Progress Note: Colonoscopy complete. Report placed in the procedural section of the physical chart and will be scanned into [employer]
--- NOTE | 2019-11-28 13:35 | PN ---
Teaching Attending Note Name of Resident: Damon Colin ATTENDING PHYSICIAN STATEMENT I saw and evaluated the patient. I reviewed the resident's note and discussed the case with the resident. I agree with the resident's findings and plan as documented. SUBJECTIVE: Ongoing abdominal discomfort, mostly epigastric. BMs overnight with prep, dark. No fever/chills/nausea/vomiting/lightheadedness. OBJECTIVE: Afebrile, Hemodynamically stable. Last Vital Signs Temp Pulse Resp BP Pulse Ox 98.9 F 81 20 104/59 L 100 11/28/19 12:55 11/28/19 13:25 11/28/19 13:25 11/28/19 13:25 11/28/19 13:25 Heart - S1, S2, RRR Lungs - clear to auscultation Abdomen - Soft, mild generalized tenderness dom epigastrum. Extremities - trace edema, no calf tenderness. Neuro - AAO x 3. Tone/Power normal all extremities. Laboratory Results - last 24 hr 11/23/19 11/28/19 11/28/19 05:39 07:15 07:15 WBC 7.9 RBC 3.87 Hgb 7.6 L Hct 24.7 L MCV 63.9 L MCH 19.6 L MCHC 30.7 L RDW 22.1 H Plt Count 501 H MPV 7.6 Sodium 138 Potassium 4.1 Chloride 105 Carbon Dioxide 27 Anion Gap 6 L BUN 5.4 L Creatinine 0.5 L Est GFR (CKD-EPI)AfAm 132.65 Est GFR (CKD-EPI)NonAf 114.45 Random Glucose 92 Calcium 8.3 L Phosphorus 4.3 Magnesium 2.4 Total Bilirubin < 0.1 L AST 31 ALT 44 Alkaline Phosphatase 87 Total Protein 6.6 Albumin 2.5 L Prothrombin [id number] Mut Current Medications Generic Name Dose Route Start Last Admin Trade Name Freq PRN Reason Stop Dose Admin Bupropion HCl 150 mg 11/23/19 10:00 11/28/19 09:33 Wellbutrin Xl - PO Not Given DAILY GEENA Clonazepam 2 mg 11/23/19 10:00 11/28/19 09:33 Klonopin - PO Not Given DAILY GEENA Docusate Sodium 100 mg 11/23/19 22:00 11/28/19 09:32 Colace - PO Not Given BID GEENA Enoxaparin Sodium 80 mg 11/28/19 13:15 Lovenox - SQ BID GEENA Morphine Sulfate 2 mg 11/27/19 15:32 11/28/19 04:04 Morphine Sulfate IVPUSH 2 mg Q4H PRN Administration PAIN LEVEL 7 - 10 Polyethylene Glycol 17 gm 11/23/19 22:00 11/28/19 09:33 Miralax (For Daily Use) - PO Not Given BID GEENA Senna 2 tab 11/23/19 16:20 11/27/19 21:03 Senna - PO 2 tab HS PRN Administration CONSTIPATION Simethicone 80 mg 11/25/19 22:58 11/28/19 00:05 Mylicon - PO 80 mg Q4H PRN Administration DYSPEPSIA Tramadol HCl 50 mg 11/24/19 09:06 11/25/19 13:19 Ultram - PO 50 mg Q6H PRN Administration PAIN LEVEL 6-10 Home Medications Medication Instructions Recorded Bupropion HCl [Wellbutrin Sr] 150 mg PO DAILY 11/22/19 Clonazepam [Klonopin] 2 mg PO DAILY 11/22/19 Fluconazole 150 mg PO DAILY 11/24/19 Sulfamethoxazole/Trimethoprim 1 tab PO BID 11/24/19 [Bactrim Ds -] ASSESSMENT AND PLAN: 49 year old female with history of Depression, Uterine Fibroid (with Menorrhagia) presents with diffuse abdominal pain and constipation for 5 days, admitted for findings of portal vein thrombosis on CT A/P. 1. Acute Portal Vein Thrombosis, etiology unclear. Started on Lovenox SQ - to continue for 3 months Hypercoagulable work-up as per Hematology/Oncology H/O following - rec MRCP which shows R Renal Cyst and narrowing of CBD in the puma hepatis likely external compression due to extensive adjacent venous thrombosis, no malignant focus. GI following. IV morphine analgesia as per Hematology. 2. Iron Deficiency Anemia Ferritin 10 s/p IV Iron x 2. Black BMs, FOBT negative, re-requested. Further Ix with EGD/[address] by GI 11/27/19 - EGD reportedly normal, for repeat Colonoscopy 11/27 due to inadequate bowel prep. Monitor H/H 3. Constipation - resolved, bowel regimen intensified +/- Enema PRN. 4. Depression - continue Bupropion, Clonazepam. 5. R Renal Cyst, incidental finding on MRCP - for Urology evaluation as out- patient. 6. Menorrhagia - with LLOYD - Gyne eval requested. DVT Px - on Lovenox SQ treatment dose - held prior to re-attempt at Colonoscopy 11/27
[2019-11-28] MEDS: ENOXAPARIN NA (PORCINE) 80 MG/0.8 ML DISP.SYRIN SQ SCH ×2 (13:41→21:22)
--- NOTE | 2019-11-28 15:28 | PN ---
Physical Exam: SUBJECTIVE: Patient seen and examined. Incomplete colonoscopy yesterday, received bowel prep. Normal endoscopy. OBJECTIVE: Vital Signs Period Temp Pulse Resp BP Sys/Zamudio Pulse Ox Last 24 Hr 97.9 F-98.9 F 75-94 16-21 102-123/55-71 99-100 GENERAL: The patient is awake, alert, and fully oriented, in no acute distress. HEAD: Normal with no signs of trauma. EYES: PERRL, extraocular movements intact, sclera anicteric, conjunctiva clear. No ptosis. ENT: Ears normal, nares patent, oropharynx clear without exudates, moist mucous membranes. NECK: Trachea midline, full range of motion, supple. LUNGS: Breath sounds equal, clear to auscultation bilaterally, no wheezes, no crackles, no accessory muscle use. HEART: Regular rate and rhythm, S1, S2 without murmur, rub or gallop. ABDOMEN: Soft, nontender, nondistended, normoactive bowel sounds, no guarding, no rebound, no hepatosplenomegaly, no masses. EXTREMITIES: 2+ pulses, warm, well-perfused, no edema. NEUROLOGICAL: Cranial nerves II through XII grossly intact. Normal speech, gait not observed. PSYCH: Normal mood, normal affect. SKIN: Warm, dry, normal turgor, no rashes or lesions noted Laboratory Results - last 24 hr 11/23/19 11/28/19 11/28/19 05:39 07:15 07:15 WBC 7.9 RBC 3.87 Hgb 7.6 L Hct 24.7 L MCV 63.9 L MCH 19.6 L MCHC 30.7 L RDW 22.1 H Plt Count 501 H MPV 7.6 Sodium 138 Potassium 4.1 Chloride 105 Carbon Dioxide 27 Anion Gap 6 L BUN 5.4 L Creatinine 0.5 L Est GFR (CKD-EPI)AfAm 132.65 Est GFR (CKD-EPI)NonAf 114.45 Random Glucose 92 Calcium 8.3 L Phosphorus 4.3 Magnesium 2.4 Total Bilirubin < 0.1 L AST 31 ALT 44 Alkaline Phosphatase 87 Total Protein 6.6 Albumin 2.5 L Prothrombin [id number] Mut Active Medications Generic Name Dose Route Start Last Admin Trade Name Freq PRN Reason Stop Dose Admin Bupropion HCl 150 mg 11/23/19 10:00 11/28/19 13:41 Wellbutrin Xl - PO 150 mg DAILY GEENA Administration Clonazepam 2 mg 11/23/19 10:00 11/28/19 13:41 Klonopin - PO 2 mg DAILY GEENA Administration Docusate Sodium 100 mg 11/23/19 22:00 11/28/19 09:32 Colace - PO Not Given BID GEENA Enoxaparin Sodium 80 mg 11/28/19 13:15 11/28/19 13:41 Lovenox - SQ 80 mg BID GEENA Administration Morphine Sulfate 2 mg 11/27/19 15:32 11/28/19 13:45 Morphine Sulfate IVPUSH 2 mg Q4H PRN Administration PAIN LEVEL 7 - 10 Polyethylene Glycol 17 gm 11/23/19 22:00 11/28/19 09:33 Miralax (For Daily Use) - PO Not Given BID GEENA Senna 2 tab 11/23/19 16:20 11/27/19 21:03 Senna - PO 2 tab HS PRN Administration CONSTIPATION Simethicone 80 mg 11/25/19 22:58 11/28/19 13:40 Mylicon - PO 80 mg Q4H PRN Administration DYSPEPSIA Tramadol HCl 50 mg 11/24/19 09:06 11/25/19 13:19 Ultram - PO 50 mg Q6H PRN Administration PAIN LEVEL 6-10 EGD Impressions 1. Mucosa of the esophagus appeared normal 2. The mucosa of the stomach appeared normal 3. The duodenal mucosa showed no abnormalities from the bulb and section portion of the duodenum. 4. Retroflexed viewd in the stomach revealed no abnormalities. Recommendations 1. Colonoscopy Colonoscopy Initial on 11/26 incomplete prep; unable to evaluate Impressions 1. The colon was redundant 2. Scattered diverticulosis was noted in the sigmoid colon 3. Pockets of retained opaque liquid stool and stool fragments limiting evaluation. Given mineral oil enema prior, leaving film on the lens Small/flat polyps may have been obscured, no large mass lesion identified. No colonic obstruction identified. 4. Colonic mucosa appeared normal in the terminal ileum. 5. Retroflexed views revealed an anal papilla Recommendations 1. High fiber diet 2. Repeat colonoscopy 1 year 3. Miralax 17g twice daily 4. Senna 2 tablets daily 5. Avoid opiate analgesia. If constipation continues, Relistor 8mg x1. 6. There was no melena or blood noted on exam. Only significant bleeding history is severe menstrual bleeding. History of uterine fibroids. Consider lion trainer eval. 7. Resume anticoagulation now. Heme follow up. ASSESSMENT/PLAN: Pt is a 49 year old female with PMHx of depression presenting with abdominal pain diffusely, admitted for findings of portal vein thrombosis on abdomen/pelvis CT. Uterine fibroids also seen, negative for diverticulitis, appendicitis. #Portal vein thrombosis -unclear etiology -Seen in main portal vein and left/right portal vein branches on abdomen/pelvis CT -MRCP showing R renal cyst, and narrowing of CBD in the puma hepatis likely external compression due to extensive adjacent venous thrombosis, no malignant focus -Resumed Lovenox 80mg BID; per hem/onc will continue x3 months -Hematology consulted; Hypercoaguability tests ordered -GI consulted -IV morphine PRN per heme/onc #Constipation -BM 2 days prior; black tarry stool -bowel regimen and enema PRN -per GI, avoid opiates and Relistor 8mg x1 if persists #Iron deficiency anemia -EGD normal on 11/26 -colonoscopy 11/27; repeat in 1 year, scattered divertucolosis, no source of bleeding found, likely uterine fibroids -consulted MANAGER PHYSICAL #Uterine fibroids -seen on pelvic/abdomen CT #Hx of depression -continued home clonazepam and wellbutrin PPx Lovenox 80mg BID for PVT; held in AM for repeat colonoscopy FEN No standing fluids Monitor electrolytes NPO after midnight for repeat colonoscopy Dispo Admit to med surg. PVT seen on abdomen/pelvis CT, on Lovenox therapeutic dose, held for colonoscopy/EGD. Heme, OBGYN and GI consulted. Microcytic anemia, finishing LMP - follow H/H. Visit type - Emergency Visit Emergency Visit: Yes ED Registration Date: 11/22/19 Care time: The patient presented to the Emergency Department on the above date and was hospitalized for further evaluation of their emergent condition. - New Patient This patient is new to me today: No - Critical Care Critical Care patient: No ATTENDING PHYSICIAN STATEMENT I saw and evaluated the patient. I reviewed the resident's note and discussed the case with the resident. I agree with the resident's findings and plan as documented. SUBJECTIVE: OBJECTIVE: ASSESSMENT AND PLAN:
--- NOTE | 2019-11-28 19:49 | CONSULT ---
Consult Consult Specialty:: MACHINE OPERATOR SLITTER TECHNICIAN Referred by:: Primary team Reason for Consultation:: H/O metromenorrhagia - History of Present Illness Chief Complaint: Patient reports irregular menses lasting 5 days, with 5 pads on the heaviest day. She denies hospitalizations for severe VB and anemia in the past. She has not followed with MACHINE OPERATOR SLITTER TECHNICIAN care in over 4 years. Patient is a and is aware of leiomyomas diagnosis. Her menses ended 5 days ago. - History Source History Provided By: Patient Limitations to Obtaining History: No Limitations - Past Medical History MEAT SOAKER: No: Alzheimer's, CVA, Dementia, Migraine, Multiple Sclerosis, Peripheral Neuropathy, Parkinson's, Seizure, Syncope, TIA, Vertigo, Other Cardio/Vascular: Yes: Deep Vein Thrombosis Pulmonary: No: Asthma, Bronchitis, Cancer, COPD, O2 Dependent, Pneumonia, Previously Intubated, Pulmonary Embolus, Pulmonary Fibrosis, Sleep Apnea, Other Gastrointestinal: No: Ascites, Cancer, Constipation, Crohn's Disease, Diverticulitis, Diverticulosis, Esophageal Varices, Gastritis, GERD, GI Bleed, Hemorrhoids, Hiatal Hernia, Inflamatory Bowel Disease, Irritable Bowel Disease, Pancreatitis, Peptic Ulcer Disease, Ulcerative Colitis, Other Hepatobiliary: No: Cirrhosis, Cholelithiasis, Cholecystitis, Choledo cholithiasis, Hepatitis A, Hepatitis B, Hepatitis C, Other Reproductive: Yes: Other (leiomyomas). No: Ectopic , Endometriosis, Fibroids, PID, Polycystic Ovary Syndrome, Postmenopausal ...LMP: 11/22/19 ...: No Heme/Onc: Yes: Anemia Infectious Disease: No: AIDS, C-Diff, Herpes Zoster, HIV, MRSA, STD's, Tuberculosis, VREF, Other Psych: Yes: Other. No: Addictions, Anxiety, Bipolar, Depression, Panic, Psychosis, Schizophrenia Musculoskeletal: No: Bursitis, Chronic low back pain, Hemiparesis, Hemiplegia, Osteoarthritis, Paraplegia, Other Rheumatology: No: Fibromyalgia, Gout, Lupus, Rheumatoid Arthritis, Sarcoidosis, Vasculitis, Other ENT: No: Allergic Rhinitis, Sinusitis, Other Endocrine: No: [place]'s Disease, Preston's Disease, Diabetes Insipidus, Diabetes Mellitus, Hyperparathyroidism, Hyperthyroidism, Hypothyroidism, Oste openia, SIADH, Other Dermatology: No: Basal Cell, Cellulitis, Eczema, Melanoma, Psoriasis, Squamous Cell, Other - Past Surgical History Additional Surgical History: D&C x 4 - Alcohol/Substance Use Hx Alcohol Use: Yes (socially) History of Substance Use: reports: None - Smoking History Smoking history: Never smoked Have you smoked in the past 12 months: No Aproximately how many cigarettes per day: 0 Home Medications - Allergies Allergies/Adverse Reactions: Allergies Allergy/AdvReac Type Severity Reaction Status Date / Time cefazolin [From Ancef] Allergy Verified 11/23/19 15:05 nitroflaxin Allergy Uncoded 11/23/19 15:05 - Home Medications Home Medications: Ambulatory Orders Bupropion HCl [Wellbutrin Sr] 150 mg PO DAILY 11/22/19 Clonazepam [Klonopin] 2 mg PO DAILY 11/22/19 Fluconazole 150 mg PO DAILY 11/24/19 Sulfamethoxazole/Trimethoprim [Bactrim Ds -] 1 tab PO BID 11/24/19 Family Medical History Family Hx Cancer: Father (Stomach cancer-resected) Family Hx Nuerologic Problems: Mother (Stroke) Review of Systems - Review of Systems Constitutional: reports: No Symptoms Eyes: reports: No Symptoms HENT: reports: No Symptoms Neck: reports: No Symptoms Cardiovascular: reports: No Symptoms Respiratory: reports: No Symptoms Gastrointestinal: reports: Abdominal Pain Genitourinary: reports: No Symptoms Breasts: reports: No Symptoms Reported Musculoskeletal: reports: No Symptoms Integumentary: reports: No Symptoms Neurological: reports: No Symptoms Endocrine: reports: No Symptoms Hematology/Lymphatic: reports: No Symptoms Psychiatric: reports: Other Physical Exam Vital Signs: Vital Signs Temperature 97.7 F 11/28/19 18:56 Pulse Rate 101 H 11/28/19 18:56 Respiratory Rate 18 11/28/19 18:56 Blood Pressure 124/55 L 11/28/19 18:56 O2 Sat by Pulse Oximetry (%) 98 11/28/19 18:56 Constitutional: Yes: Well Nourished HENT: Yes: Atraumatic Cardiovascular: Yes: Regular Rate and Rhythm Respiratory: Yes: Regular Gastrointestinal: Yes: Soft ...Rectal Exam: Yes: Other Renal/: Yes: Other (SSE: no CMT, no palpable adnexal masses, heterogeneous uterine contour and enlarged; Patient's RN present during examination) Breast(s): Yes: Other Musculoskeletal: Yes: WNL Extremities: Yes: WNL Edema: Yes Edema: LLE: Trace, RLE: Trace Peripheral Pulses WNL: Yes Integumentary: Yes: WNL Neurological: Yes: Alert, Oriented ...Motor Strength: WNL Psychiatric: Yes: Alert, Oriented Labs: CBC, BMP 11/28/19 07:15 11/28/19 07:15 Imaging - Results Cat Scan: Report Reviewed, Image Reviewed Assessment/Plan 49 y/o P0 female admitted due to DVT, MACHINE OPERATOR SLITTER TECHNICIAN consult for H/O fibroids and metromenorrhagia in the setting of anemia. Patient is not actively bleeding and no urgent MACHINE OPERATOR SLITTER TECHNICIAN intervention is required. Hormonal treatment for metromenorrhagia is contraindicated with active DVT. Patient was offered MACHINE OPERATOR SLITTER TECHNICIAN services at [facility]. -Correction of anemia -Management as per primary team -Outpatient MACHINE OPERATOR SLITTER TECHNICIAN care for management of leiomyomas
[2019-11-28] MEDS: SENNOSIDES 8.6MG TABLET (FP) PO PRN (21:20)
[2019-11-29] MEDS: MORPHINE SULFATE 2 MG/ML VIAL IVPUSH PRN ×2 (00:55→05:34)
[2019-11-29 07:55] LABS: HEMATOCRIT 24.4 % (32.4-45.2); HEMOGLOBIN 7.3 GM/dL (10.7-15.3); MCHC 29.9 g/dl (32.0-36.0); MEAN PLT VOLUME 8.4 fl (7.5-11.1); PLATELET COUNT 510 K/MM3 (134-434); RBC 3.87 M/mm3 (3.60-5.2); WHITE BLOOD COUNT 9.6 K/mm3 (4.0-10.0)
[2019-11-29 07:56] LABS: ALBUMIN 2.4 g/dl (3.4-5.0); BILIRUBIN,TOTAL 0.4 mg/dL (0.2-1); BLOOD UREA NITROGEN 3.9 mg/dL (7-18); CALCIUM 8.5 mg/dL (8.5-10.1); CREATININE 0.5 mg/dL (0.55-1.3); MAGNESIUM 2.4 mg/dL (1.8-2.4); PHOSPHOROUS 4.4 mg/dL (2.5-4.9); POTASSIUM 3.5 mmol/L (3.5-5.1); TOT PROT 6.4 g/dl (6.4-8.2)
[2019-11-29 08:09] LABS: MCH 18.8 pg (25.7-33.7)
[2019-11-29] MEDS ORDERED: traMADol HCL 50 MG TABLET PO ONE (09:53)
[2019-11-29] MEDS: DOCUSATE SODIUM 100 MG CAPSULE (FP) PO SCH ×2 (10:51→21:30)
[2019-11-29] MEDS: ENOXAPARIN NA (PORCINE) 80 MG/0.8 ML DISP.SYRIN SQ SCH ×2 (10:52→21:29)
[2019-11-29] MEDS: clonazePAM 2 MG TABLET PO SCH (10:52)
[2019-11-29] MEDS: POLYETHYLENE GLYCOL 3350 119 GM BTL PO SCH ×2 (10:53→21:30)
[2019-11-29] MEDS: SIMETHICONE 80 MG TAB.CHEW (FP) PO PRN (10:53)
--- NOTE | 2019-11-29 13:08 | PN.GI ---
GI Progress Note Subjective: Asked to evaluate abdominal pain Patient points towards upper abdomen and left upper abdomen Feels bloated Wants medication for pain - Objective Vital Signs: Vital Signs Temperature 99.6 F 11/29/19 05:44 Pulse Rate 86 11/29/19 05:44 Respiratory Rate 18 11/29/19 05:44 Blood Pressure 105/63 11/29/19 05:44 O2 Sat by Pulse Oximetry (%) 93 L 11/29/19 05:44 Constitutional: Calm Eyes: No: Sclera Icterus Cardiovascular: Yes: Regular Rate and Rhythm Respiratory: Yes: CTA Bilaterally Gastrointestinal Inspection: No: Distention ...Auscultate: Yes: Normoactive Bowel Sounds ...Palpate: Yes: Soft, Tenderness (TTP upper abdomen and left abdomen). No: Guarding ...Percussion: No: Tympanitic Edema: No (No LE edema) Neurological: Yes: Alert Labs: CBC, BMP 11/29/19 06:50 11/29/19 06:50 INR, PTT INR 1.13 (0.83-1.09) H 11/23/19 09:08 Hepatic Panel Total Bilirubin 0.4 mg/dL (0.2-1) 11/29/19 06:50 AST 25 U/L (15-37) 11/29/19 06:50 ALT 41 U/L (13-61) 11/29/19 06:50 Alkaline Phosphatase 90 U/L (45-117) 11/29/19 06:50 Albumin 2.4 g/dl (3.4-5.0) L 11/29/19 06:50 Problem List - Problems (1) Abdominal pain Assessment/Plan: Continued abdominal pain. Mostly upper abdomen: Advise: Anticoagulation per hematology Repeat Triple phase CT scan of abdomen and pelvis to reevaluate portal vein thrombus, exclude progressive extension into SMV causing vascular congestion of the small bowel. If progressing portal vein thrombosis, consideration should be given for transfer to hepatiobiliary center for further management MiraLAX 17g twice daily Senna two tablets nightly Fleet enema x 1 Pain management per primary team Code(s): R10.9 - UNSPECIFIED ABDOMINAL PAIN
[2019-11-29] MEDS ORDERED: SODIUM PHOSPHATE/NA BIPHOS 133 ML ENEMA RC ONE (13:09)
--- NOTE | 2019-11-29 15:28 | PN ---
Teaching Attending Note Name of Resident: Vania Kwan ATTENDING PHYSICIAN STATEMENT I saw and evaluated the patient. I reviewed the resident's note and discussed the case with the resident. I agree with the resident's findings and plan as documented. SUBJECTIVE: Complains of ongoing abdominal discomfort, mostly epigastric/LUQ. Last BM with prep, dark. No fever/chills/nausea/vomiting/lightheadedness. OBJECTIVE: Afebrile, Hemodynamically stable. Last Vital Signs Temp Pulse Resp BP Pulse Ox 99.3 F 93 H 18 111/71 93 L 11/29/19 13:27 11/29/19 13:27 11/29/19 13:11/29/19 13:11/29/19 05:44 Heart - S1, S2, RRR Lungs - clear to auscultation Abdomen - Soft, mild generalized tenderness dom epigastrum/LUQ. bowel sounds normal. Extremities - trace edema, no calf tenderness. Neuro - AAO x 3. Tone/Power normal all extremities. Laboratory Results - last 24 hr 11/29/19 11/29/19 06:50 06:50 WBC 9.6 RBC 3.87 Hgb 7.3 L Hct 24.4 L MCV 63.0 L MCH 18.8 L MCHC 29.9 L RDW 22.0 H Plt Count 510 H MPV 8.4 D Sodium 136 Potassium 3.5 Chloride 102 Carbon Dioxide 25 Anion Gap 9 BUN 3.9 L Creatinine 0.5 L Est GFR (CKD-EPI)AfAm 132.65 Est GFR (CKD-EPI)NonAf 114.45 Random Glucose 105 Calcium 8.5 Phosphorus 4.4 Magnesium 2.4 Total Bilirubin 0.4 AST 25 ALT 41 Alkaline Phosphatase 90 Total Protein 6.4 Albumin 2.4 L Current Medications Generic Name Dose Route Start Last Admin Trade Name Freq PRN Reason Stop Dose Admin Bupropion HCl 150 mg 11/23/19 10:11/29/19 10:53 Wellbutrin Xl - PO 150 mg DAILY GEENA Administration Clonazepam 2 mg 11/23/19 10:11/29/19 10:52 Klonopin - PO 2 mg DAILY GEENA Administration Docusate Sodium 100 mg 11/23/19 22:00 11/29/19 10:51 Colace - PO 100 mg BID GEENA Administration Enoxaparin Sodium 80 mg 11/28/19 13:15 11/29/19 10:52 Lovenox - SQ 80 mg BID GEENA Administration Polyethylene Glycol 17 gm 11/23/19 22:00 11/29/19 10:53 Miralax (For Daily Use) - PO Not Given BID GEENA Senna 2 tab 11/29/19 11:45 Senna - PO HS GEENA Simethicone 80 mg 11/25/19 22:58 11/29/19 10:53 Mylicon - PO 80 mg Q4H PRN Administration DYSPEPSIA Home Medications Medication Instructions Recorded Bupropion HCl [Wellbutrin Sr] 150 mg PO DAILY 11/22/19 Clonazepam [Klonopin] 2 mg PO DAILY 11/22/19 Docusate Sodium [Colace -] 100 mg PO BID #60 capsule 11/29/19 Enoxaparin [Lovenox -] 80 mg SQ BID #60 disp.syrin 11/29/19 Ferrous Sulfate 325 mg PO DAILY #30 tablet 11/29/19 Polyethylene Glycol 3350 [Miralax 17 gm PO BID #5 bottle 11/29/19 119 gm Btl -] Sennosides [Senna -] 2 tab PO HS #60 tablet 11/29/19 ASSESSMENT AND PLAN: 49 year old female with history of Depression, Uterine Fibroid (with Menorrhagia) presents with diffuse abdominal pain and constipation for 5 days, admitted for findings of portal vein thrombosis on CT A/P. 1. Acute Portal Vein Thrombosis, etiology unclear. Started on Lovenox SQ - to continue for 3 months Hypercoagulable work-up as per Hematology/Oncology H/O following - rec MRCP which shows R Renal Cyst and narrowing of CBD in the puma hepatis likely external compression due to extensive adjacent venous thrombosis, no malignant focus. GI following - rec repeat CT A/P due to ongoing abdominal discomfort. 2. Iron Deficiency Anemia - Microcytic (H/H 7.3/24.4. MCV 63 Ferritin 10 s/p IV Iron x 2. Will give another dose IV Venofer. Black BMs, FOBT negative, re-requested. s/p EGD/[place] by GI 11/27/19 and 11/28/19 - EGD reportedly normal, no bleeding lesions on Colonoscopy. Monitor H/H Will need discharge on Iron supplementation. 3. Constipation - resolved, bowel regimen intensified (Miralax, Senna, Relistor PRN) +/- Enema PRN. 4. Depression - continue Bupropion, Clonazepam. 5. R Renal Cyst, incidental finding on MRCP - for Urology evaluation as out- patient. 6. Menorrhagia - with LLOYD - Gyne evaluated - recommend out-patient follow up. DVT Px - on Lovenox SQ treatment dose
[2019-11-29] MEDS: SENNOSIDES 8.6MG TABLET (FP) PO SCH ×2 (15:29→21:30)
[2019-11-29] MEDS ORDERED: IRON SUCROSE INJECTION 200 MG in SODIUM CHLORIDE 90 ML IVPB ONE (16:00)
--- NOTE | 2019-11-29 16:57 | PN ---
Physical Exam: SUBJECTIVE: Patient seen and examined. Patient still reports abdominal pain, worse on the epigastric/LUQ area. No fevers, chills, headache, chest pain, shortness of breath. OBJECTIVE: Vital Signs Temperature 99.3 F 11/29/19 13:27 Pulse Rate 93 H 11/29/19 13:27 Respiratory Rate 18 11/29/19 13:27 Blood Pressure 111/71 11/29/19 13:27 O2 Sat by Pulse Oximetry (%) 93 L 11/29/19 05:44 GENERAL: The patient is awake, alert, and fully oriented, in no acute distress. NECK: Trachea midline, full range of motion, supple. LUNGS: Breath sounds equal, clear to auscultation bilaterally HEART: Regular rate and rhythm, S1, S2 ABDOMEN: Soft, mild tenderness on epigastric/LUQ, nondistended, normoactive bowel sounds EXTREMITIES: 2+ pulses, warm, well-perfused, no edema. NEUROLOGICAL: Cranial nerves II through XII grossly intact. Normal speech PSYCH: Normal mood, normal affect. SKIN: Warm, dry, normal turgor Laboratory Results - last 24 hr 11/29/19 11/29/19 06:50 06:50 WBC 9.6 RBC 3.87 Hgb 7.3 L Hct 24.4 L MCV 63.0 L MCH 18.8 L MCHC 29.9 L RDW 22.0 H Plt Count 510 H MPV 8.4 D Sodium 136 Potassium 3.5 Chloride 102 Carbon Dioxide 25 Anion Gap 9 BUN 3.9 L Creatinine 0.5 L Est GFR (CKD-EPI)AfAm 132.65 Est GFR (CKD-EPI)NonAf 114.45 Random Glucose 105 Calcium 8.5 Phosphorus 4.4 Magnesium 2.4 Total Bilirubin 0.4 AST 25 ALT 41 Alkaline Phosphatase 90 Total Protein 6.4 Albumin 2.4 L Active Medications Generic Name Dose Route Start Last Admin Trade Name Freq PRN Reason Stop Dose Admin Bupropion HCl 150 mg 11/23/19 10:11/29/19 10:53 Wellbutrin Xl - PO 150 mg DAILY GEENA Administration Clonazepam 2 mg 11/23/19 10:00 11/29/19 10:52 Klonopin - PO 2 mg DAILY GEENA Administration Docusate Sodium 100 mg 11/23/19 22:00 11/29/19 10:51 Colace - PO 100 mg BID GEENA Administration Enoxaparin Sodium 80 mg 11/28/19 13:15 11/29/19 10:52 Lovenox - SQ 80 mg BID GEENA Administration Iron Sucrose 200 mg/ Sodium 100 mls @ 100 mls/hr 11/29/19 16:00 Chloride IVPB 11/29/19 16:59 ONCE ONE Polyethylene Glycol 17 gm 11/23/19 22:00 11/29/19 10:53 Miralax (For Daily Use) - PO Not Given BID GEENA Senna 2 tab 11/29/19 11:45 11/29/19 15:29 Senna - PO 2 tab HS GEENA Administration Simethicone 80 mg 11/25/19 22:58 11/29/19 10:53 Mylicon - PO 80 mg Q4H PRN Administration DYSPEPSIA ASSESSMENT/PLAN: Patient is a 49 year old female with PMHx of depression presenting with abdominal pain diffusely, admitted for findings of portal vein thrombosis on abdomen/pelvis CT. Uterine fibroids also seen, negative for diverticulitis, appendicitis. #Portal vein thrombosis -unclear etiology, continued abdominal pain -Seen in main portal vein and left/right portal vein branches on abdomen/pelvis CT -MRCP showing R renal cyst, and narrowing of CBD in the puma hepatis likely external compression due to extensive adjacent venous thrombosis, no malignant focus -Resumed Lovenox 80mg BID; per hem/onc will continue x3 months -Hematology consulted; Hypercoagulability tests pending -GI consulted. Recs appreciated -for repeat Triple phase CT scan of abdomen and pelvis to reevaluate portal vein thrombus #Constipation -bowel regimen with senna and miralax, and enema PRN -per GI, avoid opiates and Relistor 8mg x1 if persists #Iron deficiency anemia -EGD normal on 11/26 -colonoscopy 11/27; repeat in 1 year, scattered diverticulosis, no source of bleeding found, likely uterine fibroids -consulted BUNDLE PERSON #Uterine fibroids -seen on pelvic/abdomen CT #Hx of depression -continued home clonazepam and wellbutrin #PPx -Lovenox 80mg BID for PVT #FEN -No standing fluids -Monitor electrolytes -regular diet Dispo -med surg Visit type - Emergency Visit Emergency Visit: Yes ED Registration Date: 11/22/19 Care time: The patient presented to the Emergency Department on the above date and was hospitalized for further evaluation of their emergent condition. - New Patient This patient is new to me today: Yes Date on this admission: 11/29/19 - Critical Care Critical Care patient: No ATTENDING PHYSICIAN STATEMENT I saw and evaluated the patient. I reviewed the resident's note and discussed the case with the resident. I agree with the resident's findings and plan as documented. SUBJECTIVE: OBJECTIVE: ASSESSMENT AND PLAN:
[2019-11-29] MEDS ORDERED: ACETAMINOPHEN 325 MG TABLET (FP) PO ONE (20:00)
[2019-11-29] MEDS ORDERED: oxyCODONE HCL 5 MG TABLET PO ONE (20:00)
[2019-11-30] MEDS ORDERED: traMADol HCL 50 MG TABLET PO ONE (01:14)
[2019-11-30] MEDS ORDERED: MELATONIN 5 MG TABLETS PO ONE (03:10)
[2019-11-30] MEDS: SIMETHICONE 80 MG TAB.CHEW (FP) PO PRN (05:17)
[2019-11-30] MEDS ORDERED: ACETAMINOPHEN 325 MG TABLET (FP) PO ONE (06:10)
[2019-11-30 07:55] LABS: HEMATOCRIT 23.7 % (32.4-45.2); HEMOGLOBIN 7.2 GM/dL (10.7-15.3); MCHC 30.3 g/dl (32.0-36.0); MEAN CELL VOLUME 62.4 fl (80-96); MEAN PLT VOLUME 8.5 fl (7.5-11.1); PLATELET COUNT 509 K/MM3 (134-434); RBC 3.79 M/mm3 (3.60-5.2); WHITE BLOOD COUNT 9.8 K/mm3 (4.0-10.0)
[2019-11-30 08:03] LABS: MCH 18.9 pg (25.7-33.7)
[2019-11-30 08:25] LABS: BLOOD UREA NITROGEN 5.2 mg/dL (7-18); CALCIUM 8.4 mg/dL (8.5-10.1); POTASSIUM 3.5 mmol/L (3.5-5.1)
[2019-11-30 09:18] LABS: CREATININE 0.5 mg/dL (0.55-1.3)
[2019-11-30] MEDS: DOCUSATE SODIUM 100 MG CAPSULE (FP) PO SCH ×2 (09:23→22:05)
[2019-11-30] MEDS: clonazePAM 2 MG TABLET PO SCH (09:23)
[2019-11-30] MEDS: ENOXAPARIN NA (PORCINE) 80 MG/0.8 ML DISP.SYRIN SQ SCH ×2 (09:23→21:59)
[2019-11-30] MEDS: POLYETHYLENE GLYCOL 3350 119 GM BTL PO SCH ×2 (09:30→22:05)
--- NOTE | 2019-11-30 12:25 | PN.GI ---
GI Progress Note Subjective: Complains of bloating after meals Had 3 BM's overnight per nursing Received oxycodone x [address] scan reviewed with Dr. Horne: Extensive portal vein thrombosis present, no small bowel wall edema, some increased mesenteric edema, large fibroid. - Objective Vital Signs: Vital Signs Temperature 98.8 F 11/30/19 05:15 Pulse Rate 88 11/30/19 05:15 Respiratory Rate 18 11/30/19 05:15 Blood Pressure 107/54 L 11/30/19 05:15 O2 Sat by Pulse Oximetry (%) 98 11/30/19 05:15 Constitutional: Calm Eyes: No: Sclera Icterus Cardiovascular: Yes: Regular Rate and Rhythm Respiratory: Yes: CTA Bilaterally Gastrointestinal Inspection: Yes: Scars. No: Distention ...Auscultate: Yes: Normoactive Bowel Sounds ...Palpate: Yes: Soft. No: Firm/Rigid, Guarding, Tenderness, Tenderness, Rebound ...Percussion: No: Tympanitic Edema: No (No LE edema) Neurological: Yes: Alert Labs: CBC, BMP 11/30/19 06:45 11/30/19 06:45 INR, PTT INR 1.13 (0.83-1.09) H 11/23/19 09:08 - ....Imaging Cat Scan: Report Reviewed, Image Reviewed Problem List - Problems (1) Abdominal pain Assessment/Plan: Continued coplaints of bloating / post prandial bloating Persistent extensive portal vein thrombus: LFTs not suggestive of hepatic compromise, no small bowel wall congestion to suggest SMV outflow obstruction and benign abdominal examination. SMV and splenic veins were widely patent on recent MRI. Upper endoscopy and colonoscopy unreevaling in terms of intraluminal etiology of her thrombosis. Do not think there was actual melena during this admission either. Does complain of continued constipation, however nursing reports BM x 3 last night. Suspect that her PVT explains a good deal of her abdominal bloating complaints and likely contributing to her constipation. Advise: Continued anticoagulation and hypercoagulability work-up per heme Continue bowel regimen Clear liquids I spoke with Dr. Akshat Greer, hepatobiliary surgeon at [facility] today. discussed case and Ms. King's current clinical condition. He recommended continued close inpatient observation while on A/C at least until mid week next week. Will rediscuss case tomorrow. Was open to transfer as he discussed potential options if worsening clinical condition concerning for bowel compromise such as TIP S/direct thrombolysis through [facility]. Ordered AM labs including lactic acid level Code(s): R10.9 - UNSPECIFIED ABDOMINAL PAIN
--- NOTE | 2019-11-30 14:18 | PN ---
Progress Note (short form) - Note Progress Note: SUBJECTIVE: Complains of ongoing abdominal discomfort and bloating, mostly epigastric/LUQ. BM overnight but patient subjectively feels like she needs to have a BM. No fever/chills/nausea/vomiting/lightheadedness. OBJECTIVE: Afebrile, Hemodynamically stable. Last Vital Signs Temp Pulse Resp BP Pulse Ox 98 F 84 16 110/60 99 11/30/19 10:00 11/30/19 10:00 11/30/19 10:00 11/30/19 10:00 11/30/19 10:00 Heart - S1, S2, RRR Lungs - clear to auscultation Abdomen - Soft, tender epigastrum/LUQ. Bowel sounds normal. Extremities - trace edema, no calf tenderness. Neuro - AAO x 3. Tone/Power normal all extremities. Laboratory Results - last 24 hr 11/30/19 11/30/19 06:45 06:45 WBC 9.8 RBC 3.79 Hgb 7.2 L Hct 23.7 L MCV 62.4 L MCH 18.9 L MCHC 30.3 L RDW 23.0 H Plt Count 509 H MPV 8.5 Sodium 133 L Potassium 3.5 Chloride 98 Carbon Dioxide 25 Anion Gap 10 BUN 5.2 L Creatinine 0.5 L Est GFR (CKD-EPI)AfAm 132.65 Est GFR (CKD-EPI)NonAf 114.45 Random Glucose 90 Calcium 8.4 L Current Medications Generic Name Dose Route Start Last Admin Trade Name Freq PRN Reason Stop Dose Admin Bupropion HCl 150 mg 11/23/19 10:00 11/30/19 09:23 Wellbutrin Xl - PO 150 mg DAILY GEENA Administration Clonazepam 2 mg 11/23/19 10:00 11/30/19 09:23 Klonopin - PO 2 mg DAILY GEENA Administration Docusate Sodium 100 mg 11/23/19 22:00 11/30/19 09:23 Colace - PO 100 mg BID GEENA Administration Enoxaparin Sodium 80 mg 11/28/19 13:15 11/30/19 09:23 Lovenox - SQ 80 mg BID GEENA Administration Polyethylene Glycol 17 gm 11/23/19 22:00 11/30/19 09:30 Miralax (For Daily Use) - PO 17 gm BID GEENA Administration Senna 2 tab 11/29/19 11:45 11/29/19 21:30 Senna - PO Not Given HS GEENA Home Medications Medication Instructions Recorded Bupropion HCl [Wellbutrin Sr] 150 mg PO DAILY 11/22/19 Clonazepam [Klonopin] 2 mg PO DAILY 11/22/19 Docusate Sodium [Colace -] 100 mg PO BID #60 capsule 11/29/19 Enoxaparin [Lovenox -] 80 mg SQ BID #60 disp.syrin 11/29/19 Ferrous Sulfate 325 mg PO DAILY #30 tablet 11/29/19 Polyethylene Glycol 3350 [Miralax 17 gm PO BID #5 bottle 11/29/19 119 gm Btl -] Sennosides [Senna -] 2 tab PO HS #60 tablet 11/29/19 ASSESSMENT AND PLAN: 49 year old female with history of Depression, Uterine Fibroid (with Menorrhagia) presents with diffuse abdominal pain and constipation for 5 days, admitted for findings of portal vein thrombosis on CT A/P. 1. Acute Portal Vein Thrombosis, etiology unclear. Started on Lovenox SQ - to continue for 3 months Hypercoagulable work-up as per Hematology/Oncology H/O following - rec MRCP which shows R Renal Cyst and narrowing of CBD in the puma hepatis likely external compression due to extensive adjacent venous thrombosis, no malignant focus. Repeat CT A/P done due to persisting GI symptoms/abdominal discomfort - prelim read confirms extensive portal vein thrombosis with some mesenteric edema, awaiting formal report. GI following, appreciate input and liason with Hepatobiliary surgery at [facility] - for continued in-patient observation/monitoring and consideration for possible transfer next week. 2. Iron Deficiency Anemia - Microcytic (H/H 7.2/23.7. MCV 62.4) Ferritin 10 s/p IV Iron x 3, last 11/28 s/p EGD/[place] by GI 11/27/19 and 11/28/19 - EGD reportedly normal, no bleeding lesions on Colonoscopy. Monitor H/H Will need Iron supplementation on discharge. 3. Constipation - resolved, bowel regimen intensified (Miralax, Senna, Relistor PRN) +/- Enema PRN. 4. Depression - continue Bupropion, Clonazepam. 5. R Renal Cyst, incidental finding on MRCP - for Urology evaluation as out- patient. 6. Menorrhagia - with LLOYD - Gyne evaluated - recommend out-patient follow up. DVT Px - on Lovenox SQ treatment dose Visit type - Emergency Visit Emergency Visit: Yes ED Registration Date: 11/22/19 Care time: The patient presented to the Emergency Department on the above date and was hospitalized for further evaluation of their emergent condition. - New Patient This patient is new to me today: No - Critical Care Critical Care patient: No - Discharge Referral Referred to [facility] No
[2019-11-30] MEDS ORDERED: oxyCODONE HCL 5 MG TABLET PO ONE (17:20)
[2019-11-30] MEDS ORDERED: MORPHINE SULFATE 2 MG/ML VIAL IVPUSH PRN (17:44)
--- NOTE | 2019-11-30 18:26 | DS ---
Physical Exam: SUBJECTIVE: Complains of ongoing abdominal discomfort and bloating, mostly epigastric/LUQ. BM overnight but patient subjectively feels like she needs to have a BM. No fever/chills/nausea/vomiting/lightheadedness. OBJECTIVE: Afebrile Tmax 99, Hemodynamically stable. SpO2 99% RA Last Vital Signs Temp Pulse Resp BP Pulse Ox 99.0 F 89 18 108/61 99 11/30/19 14:37 11/30/19 14:37 11/30/19 14:37 11/30/19 14:37 11/30/19 10:00 Heart - S1, S2, RRR Lungs - clear to auscultation Abdomen - Soft, tender epigastrum/LUQ. Bowel sounds normal. Extremities - trace edema, no calf tenderness. Neuro - AAO x 3. Tone/Power normal all extremities. Laboratory Results - last 24 hr 11/30/19 11/30/19 06:45 06:45 WBC 9.8 RBC 3.79 Hgb 7.2 L Hct 23.7 L MCV 62.4 L MCH 18.9 L MCHC 30.3 L RDW 23.0 H Plt Count 509 H MPV 8.5 Sodium 133 L Potassium 3.5 Chloride 98 Carbon Dioxide 25 Anion Gap 10 BUN 5.2 L Creatinine 0.5 L Est GFR (CKD-EPI)AfAm 132.65 Est GFR (CKD-EPI)NonAf 114.45 Random Glucose 90 Calcium 8.4 L Current Medications Generic Name Dose Route Start Last Admin Trade Name Freq PRN Reason Stop Dose Admin Bupropion HCl 150 mg 11/23/19 10:00 11/30/19 09:23 Wellbutrin Xl - PO 150 mg DAILY GEENA Administration Clonazepam 2 mg 11/23/19 10:00 11/30/19 09:23 Klonopin - PO 2 mg DAILY GEENA Administration Docusate Sodium 100 mg 11/23/19 22:00 11/30/19 09:23 Colace - PO 100 mg BID GEENA Administration Enoxaparin Sodium 80 mg 11/28/19 13:15 11/30/19 09:23 Lovenox - SQ 80 mg BID GEENA Administration Morphine Sulfate 2 mg 11/30/19 17:44 Morphine Sulfate IVPUSH Q6H PRN PAIN LEVEL 4 - 6 Polyethylene Glycol 17 gm 11/23/19 22:00 11/30/19 09:30 Miralax (For Daily Use) - PO 17 gm BID GEENA Administration Senna 2 tab 11/29/19 11:45 11/29/19 21:30 Senna - PO Not Given HS [facility] Recommended Transfer Medications Medication Instructions Recorded Bupropion HCl [Wellbutrin Sr] 150 mg PO DAILY 11/22/19 Clonazepam [Klonopin] 2 mg PO DAILY 11/22/19 Docusate Sodium [Colace -] 100 mg PO BID #60 capsule 11/29/19 Enoxaparin [Lovenox -] 80 mg SQ BID #60 disp.syrin 11/29/19 Ferrous Sulfate 325 mg PO DAILY #30 tablet 11/29/19 Polyethylene Glycol 3350 [Miralax 17 gm PO BID #5 bottle 11/29/19 119 gm Btl -] Sennosides [Senna -] 2 tab PO HS #60 tablet 11/29/19 Morphine Injection - [Morphine 2 mg IVPUSH Q6H PRN disp.syrin 11/30/19 Injection 2 mg/1 mL -] Date of Admission:11/22/19 Date of Discharge: 11/30/19 Minutes to complete discharge: 35 Discharge Summary Problems reviewed: Yes Reason For Visit: ANEMIA,PORTAL VEIN THROMBOSIS Current Active Problems Abdominal pain (Acute) Anemia (Acute) Portal vein thrombosis (Acute) Splenic vein thrombosis (Acute) Splenic vein thrombosis (Acute) 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 Issues are as follows: 1. Acute Portal Vein Thrombosis, etiology unclear - now progressed to Splenic Vein Thrombosis and Superior Mesenteric Vein Thrombosis on repeat CT A/P 11/28. Started on Lovenox SQ - initially recommended to continue for 3 months but given development of new thomboses in Splenic and Superior Mesenteric Vein, patient was presented to [facility] for transfer for evaluation for possible intervention/TIPS directed thrombolysis. Hypercoagulable work-up as per Hematology/Oncology in progress. H/O recommended MRCP which showed R Renal Cyst and narrowing of CBD in the puma hepatis likely external compression due to extensive adjacent venous thrombosis, no malignant focus. Repeat CT A/P done 11/28 due to persisting GI symptoms/abdominal discomfort - prelim read confirmed extensive portal vein thrombosis with some mesenteric edema, but formal report 11/29 now suggests progressive veno-occlusive disease, with new splenic and superior mesenteric vein thrombosis. GI and Hem/Onc following. [employer] Dr. Cordova kindly liased with Hepatobiliary surgeon Dr. Greer at [facility] who accepted the patient for transfer given the new CT result of progressive thrombosis with new splenic and superior mesenteric vein thromboses. Patient is accepted to Hepatobiliary surgeon, Dr. Greer's service. 2. Iron Deficiency Anemia - Microcytic (H/H 7.2/23.7. MCV 62.4) Ferritin 10 s/p IV Iron x 3, last 11/28 s/p EGD/[place] by GI 11/27/19 and 11/28/19 - EGD reportedly normal, no bleeding lesions on Colonoscopy. H/H stable Will likely need Iron supplementation on discharge. 3. Constipation - resolved, bowel regimen intensified (Miralax, Senna, Relistor PRN) +/- Enema PRN. 4. Depression - continue Bupropion, Clonazepam. 5. R Renal Cyst, incidental finding on MRCP - for Urology evaluation as out- patient. 6. Menorrhagia - with LLOYD - Gyne evaluated - recommend out-patient Gyne follow up. DVT Px - on Lovenox SQ treatment dose Dispo - accepted to [facility] for transfer, accepting physician Dr. Greer. Condition: Fair - Instructions Diet, Activity, Other Instructions: You came to the hospital for abdominal pain and constipation. You had a CT scan of your abdomen and pelvis which showed a clot in one of the veins within your liver (portal vein thrombosis). You were started on a subcutaneous blood thinner, Lovenox, to prevent further clotting. You subsequently had an upper and lower endoscopy (colonoscopy) to ensure that there were no malignancies or bleeding lesions. Those investigations were essentially normal. However, because you continued to have abdominal pain despite several days of anticoagulation with Lovenox, CT scan was repeated that again showed an extensive portal vein thrombosis in addition to new splenic and superior mesenteric vein thromboses. After discussing your case with Dr. Tong (Accounting Assistant) and as suggested in Gastroenterology's evaluation, you were presented to [facility] for transfer for possible intervention given the escalation/progression of your veno- occlusive disease. You have been accepted for transfer to the service of hepatobiliary surgeon Dr. Greer. You were also found to have a fibroid in your uterus in addition to iron deficiency anemia, for which you were given 3 doses of IV Iron. You were evaluated by gynecology, who recommended out-patient Gyne eval. Please continue taking the iron pills once you are discharged, and until you follow up with Gynecology as an out-patient. New Medications: Started on Lovenox 80mg twice a day injections Miralax 17g twice daily, Senna 2 tabs nightly, and Colace 100mg twice daily for your constipation. Ferrous sulfate 325mg twice daily (iron pills). Follow ups: Please follow up with your primary care physician, Dr. Toscano, in 1 week for your overall health care management. Please follow up with your speech teacher, Dr. Frey, in 2 weeks. Please follow up with your hem/onc, Dr. Stinson, in 2 weeks. Please follow up with your OBGYN, Dr. Griffith, in 2 weeks. Referrals: Ramirez Obrien MD [Staff Physician] - Say Toscano [Primary Care Provider] - Ольга Frey DO [Staff Physician] - Yohan Wall MD [Staff Physician] - Blake Stinson MD [Staff Physician] - Disposition: TRANSFER ACUTE CARE/OTHER HOSP - Home Medications Comprehensive Discharge Medication List: Ambulatory Orders Bupropion HCl [Wellbutrin Sr] 150 mg PO DAILY 11/22/19 Clonazepam [Klonopin] 2 mg PO DAILY 11/22/19 Docusate Sodium [Colace -] 100 mg PO BID #60 capsule 11/29/19 Enoxaparin [Lovenox -] 80 mg SQ BID #60 disp.syrin 11/29/19 Ferrous Sulfate 325 mg PO DAILY #30 tablet 11/29/19 Polyethylene Glycol 3350 [Miralax 119 gm Btl -] 17 gm PO BID #5 bottle 11/29/19 Sennosides [Senna -] 2 tab PO HS #60 tablet 11/29/19 Morphine Injection - [Morphine Injection 2 mg/1 mL -] 2 mg IVPUSH Q6H PRN disp.syrin 11/30/19 This patient is new to me today: No Emergency Visit: No Critical Care patient: No - Discharge Referral Referred to [facility] Med P.C.: No
--- NOTE | 2019-11-30 18:42 | PN ---
Progress Note (short form) - Note Progress Note: Called by Dr. Horne, radiologist this evening. there was progression of the portal vein thrombosis into the SMV. When I had spoken to Dr. Greer from [facility] earlier this was not known to me. Decided to initiate transfer to [facility] for further evaluation and therapeutics if necessary. Discussed with patient. She was in agreement. Being transferred to Dr. Akshat Greer's service. Problem List - Problems (1) Abdominal pain Code(s): R10.9 - UNSPECIFIED ABDOMINAL PAIN
--- NOTE | 2019-11-30 18:46 | PN.HO ---
Progress Note (short form) - Note Progress Note: Patient seen and examined Resting comfortably. Some bloating AFVSS Cor: RSR, No murmurs, No gallops Lungs: Clear to P&A Abd: Soft, Normal bowel sounds, No organomegaly Ext:No significant edema LAbs/Meds reviewed A/P 49 y/o woman now with portal vein thrombosis, significant constipation and severe abdominal pain. s/p EGD/colonoscopy without obvious malignancy; CT a/p 11/28 with portal, SMV and splenic thrombosis . intraperitoneal flid. Enl arged uterus, focal fibroid Also with severe iron defciency anemia related to menorrhagia from fibroids No obvious malignancy/ infection Thrombophilia work up sent and is pending [facility] --nl Proteis S/factor V leiden/prothrombin gene 73008C/flow for PNH/JAK2/bcr;abl pending check antiphospholipid panel/protein C antigen/activity chek JOHNNY/HIV Rare, rare case reports in literature of iron dficiency/reactive thrombocytosis from fibroids related to hypecoagulable state Continue lovenox Monitor CBC /transfuse if symptomatic or Hgb <7 Possible trnsfer to [facility] given etension of thrombus. Continue lovenox . Monitor closely . May need IR procedures based on clinical course recommend f/u byGYN and Heme service at [facility]
[2019-11-30] MEDS: SENNOSIDES 8.6MG TABLET (FP) PO SCH (22:05)
[2019-11-30 22:06] VITALS: BP 114/69; PULSE 95; TEMP 98.7
[2019-11-30] MEDS ORDERED: ONDANSETRON 4 MG/2 ML VIAL IVPUSH ONE (22:14)
[2019-11-30] MEDS ORDERED: ONDANSETRON *ODT* 4 MG TABLET SL ONE (22:45)
[2019-12-01] MEDS ORDERED: SIMETHICONE 80 MG TAB.CHEW (FP) PO PRN (01:27)
[2019-12-01] MEDS ORDERED: MORPHINE SULFATE 2 MG/ML VIAL IVPUSH ONE (01:33)
--- NOTE | 2019-12-05 16:55 | PATH ---
Surgical Pathology Report Patient Name: ANJALI BLUE [facility]. Rec. #: [id number] /Age/Gender: 1970 (Age: 49) / F Account: [id number] Location: [facility] MED/SURG Taken: 11/28/2019 Received: 11/28/2019 Reported: 12/05/2019 Physicians: Alex Argueta M.D. Specimen(s) Received PERIPHERAL BLOOD Clinical History Portal vein thrombosis, rule out CML, rule out PNH Final Diagnosis COMPREHENSIVE FLOW PANEL performed and interpreted at [place], [place] ([id number]) shows the following: INTERPRETATION: No atypical flow cytometric findings seen. Comment: History of portal vein thrombosis is noted. Correlation with pending genetic studies is suggested. PAROXYSMAL NOCTURNAL HEMOGLOBINURIA ASSAY BY FLOW performed and reported by [place], [place] ([id number]) shows the following: INTERPRETATION: No phenotypic evidence of Paroxysmal Nocturnal Hemoglobinuria (PNH). Comment: Transfusion history is not available BCR-ABL GENE REARRANGEMENT (IS) ANALYSIS performed and interpreted at [place], [place] ([id number]) shows the following: RESULTS: Negative BCR/ABL Major breakpoints (b2a2 and b3a2): Not Detected BCR/ABL Minor breakpoint (e1a2): Not Detected INTERPRETATION: No BCR-ABL translocation was detected in this sample. JAK2 (V617F) MUTATION ANALYSIS BY PCR performed and interpreted at [facility] ([id number]) shows the following: RESULTS: JAK2 V617F Mutation Status: Not Detected. INTERPRETATION: Negative for JAK2 (V617F) Mutation. Comment: The acquired somatic V617F JAK2 mutation has been found in a majority of patients with Polycythemia Vera (PV) (>90%), and 30-50% of patients with either essential thrombocythemia (ET) and or myelofibrosis (MF) according to literature. The mutation is not detected in normal individuals. However, a negative result does not exclude the presence of the V617F mutation at a level below the limit of detection for this assay. Final diagnosis requires correlation with other clinical and laboratory data. See [facility] reports for additional details Electronically Signed Ольга Barton M.D.
== END 2019-12-01 02:42 | disposition short-term general hospital (02) | DRG 279 ==
LOC: JER 07:32 → JERBED 17:37 → J7W 11-23 14:03
PROVIDERS: ADMIT Internal Medicine
PROC: 0DJ08ZZ Inspection of Upper Intestinal Tract, Via Natural or Artificial Opening Endoscopic (ICD-10-PCS; 2019-11-27)
PROC: 0DJD8ZZ Inspection of Lower Intestinal Tract, Via Natural or Artificial Opening Endoscopic (ICD-10-PCS; principal; 2019-11-28 11:30)
DX: I81 Portal vein thrombosis (principal); F32.9 Major depressive disorder, single episode, unspecified; R10.9 Unspecified abdominal pain; R10.13 Epigastric pain; D50.9 Iron deficiency anemia, unspecified; D25.9 Leiomyoma of uterus, unspecified; N32.89 Other specified disorders of bladder; K59.00 Constipation, unspecified; D73.5 Infarction of spleen; K57.90 Diverticulosis of intestine, part unspecified, without perforation or abscess without bleeding; D68.59 Other primary thrombophilia; K55.069 Acute infarction of intestine, part and extent unspecified; N28.1 Cyst of kidney, acquired
CPT/HCPCS: 36415; 71045-TC-FY; 74018-TC-FY; 74177-TC; 74178-TC; 74182-TC; 80048; 80053; 81003; 81240; 81241; 82272; 82550; 82728; 83540; 83550; 83690; 83735; 84100; 84466; 84484; 84703; 85025; 85027; 85045; 85300; 85303; 85610; 85730; 86769; 86850; 86900; 86901; 86922; 87086; 88300-TC; 93005; 93010; 99285-25; J0131; J1756; Q0162; Q9967; U0003

== ENCOUNTER 2022-04-09 10:36 | Emergency (ER) | payer OTHER ==
[2022-04-09 10:51] VITALS: BP 128/80; PULSE 81; RESP 18; TEMP 98.7; BMI 31.0
[2022-04-09] MEDS ORDERED: SODIUM CHLORIDE 0.9% 500 ML INFUS.BAG IV ONE (11:14)
[2022-04-09] MEDS ORDERED: morphine CARPU-JECT 4 MG/1 ML DISP.SYRIN IVPUSH ONE ×2 (11:23→14:09)
[2022-04-09] MEDS ORDERED: ONDANSETRON 4 MG/2 ML VIAL IVPUSH ONE (11:23)
[2022-04-09] MEDS ORDERED: ONDANSETRON 4 MG/2 ML VIAL ONE (11:46)
[2022-04-09] MEDS ORDERED: morphine SULFATE 4 MG/ML VIAL ONE ×2 (11:52→14:13)
[2022-04-09 12:08] LABS: BASO % 0.7 % (0-2.0); EOS % 1.5 % (0-4.5); HEMATOCRIT 40.2 % (32.4-45.2); HEMOGLOBIN 13.3 GM/dL (10.7-15.3); LYMPH % 21.7 % (8-40); MCH 27.5 pg (25.7-33.7); MCHC 33.2 g/dl (32.0-36.0); MEAN CELL VOLUME 82.7 fl (80-96); MEAN PLT VOLUME 7.3 fl (7.5-11.1); NEUT % 70.1 % (42.8-82.8); PLATELET COUNT 276 10^3/uL (134-434); RBC 4.86 M/mm3 (3.60-5.2); RDW 14.4 % (11.6-15.6); WHITE BLOOD COUNT 7.2 K/mm3 (4.0-10.0)
[2022-04-09 12:09] LABS: PH,URINE 5.5 (5.0-8.0); URINE APPEARANCE CLEAR; URINE BILIRUBIN NEGATIVE (NEGATIVE); URINE COLOR YELLOW; URINE GLUCOSE (UA) NEGATIVE (NEGATIVE); URINE KETONE NEGATIVE (NEGATIVE); URINE LEUK ESTERASE NEGATIVE (NEGATIVE); URINE NITRITE NEGATIVE (NEGATIVE); URINE PROTEIN NEGATIVE (NEGATIVE); URINE UROBILINOGEN 0.2 mg/dL (0.2-1.0)
[2022-04-09 12:14] LABS: INR 1.37 (0.83-1.09); PROTHROMBIN TIME (PATIENT) 15.8 SEC (9.7-13.0)
[2022-04-09 12:16] LABS: ACTIVATED PTT 36.4 SECONDS (25.2-36.5)
[2022-04-09 12:27] LABS: ALBUMIN 3.4 g/dl (3.4-5.0); BLOOD UREA NITROGEN 10.4 mg/dL (7-18); CALCIUM 8.4 mg/dL (8.5-10.1)
[2022-04-09 12:30] LABS: CREATININE 0.6 mg/dL (0.55-1.3)
[2022-04-09 12:32] LABS: BILIRUBIN,TOTAL 0.3 mg/dL (0.2-1); TOT PROT 6.7 g/dl (6.4-8.2)
[2022-04-09] MEDS ORDERED: KETOROLAC TROMETHAMINE 30 MG/1 ML VIAL IVPUSH ONE (16:54)
[2022-04-09] MEDS ORDERED: KETOROLAC TROMETHAMINE 30 MG/1 ML VIAL ONE (16:55)
== END 2022-04-09 17:03 | disposition home or self-care (01) ==
LOC: JER 10:36 → JERFT 10:36
PROC: 3E0333Z Introduction of Anti-inflammatory into Peripheral Vein, Percutaneous Approach (ICD-10-PCS; principal; 2022-04-09)
PROC: 3E033NZ Introduction of Analgesics, Hypnotics, Sedatives into Peripheral Vein, Percutaneous Approach (ICD-10-PCS; 2022-04-09)
PROC: 3E033NZ Introduction of Analgesics, Hypnotics, Sedatives into Peripheral Vein, Percutaneous Approach (ICD-10-PCS; 2022-04-09)
PROC: 3E033GC Introduction of Other Therapeutic Substance into Peripheral Vein, Percutaneous Approach (ICD-10-PCS; 2022-04-09)
DX: R10.31 Right lower quadrant pain (principal)
CPT/HCPCS: 36415; 74177-TC; 76830-TC; 80053; 81003; 84703; 85025; 85610; 85730; 86850; 86900; 86901; 87086; 87186; 99285-25; Q9967